=== PATIENT | female | born 1970 | race Caucasian/White ===

== ENCOUNTER 2024-09-20 12:25 | Observation (INO) ==
--- NOTE | 2024-09-20 13:20 | Emergency Department Note ---
ED Provider Note History of Present Illness Chief Complaint: Headache Stated Complaint: MIGRAINE, NECK PAIN, BACK PAIN/JAW PAIN Time Seen by Provider: 09/20/24 12:41 54-year-old female who presents to the emergency department with a female friend (who also provides history) with multiple complaints. The patient complains primarily of a headache "all over". The patient reports a history of migraines, and follows with Dr. Nixon. The patient reports that she has been using Botox injections without any significant relief. She reports issues with her back as well, and has not had any injections in a long time. Patient also reports recent treatment for sinusitis that did not provide any relief. The patient reports that she is scheduled for eye surgery next month at [facility] in [place]. The patient reports that her current headache feels different than her usual migraine headache. She denies any fever or chills, nausea or significant neck pain. She rates her overall discomfort a 10 out of 10. The friend reports that the patient could have a longer tolerate all of her symptoms, and is requesting admission so that all of her issues could be addressed. Home Medications Medication Instructions Recorded Confirmed Type calcium crb,[id number] See Rx Instructions PO BID 10/23/22 09/09/24 History [Citracal Plus Bone Density] biotin 5,000 mcg chewable tablet 5,000 mcg PO DAILY 01/15/23 09/09/24 History cyanocobalamin (vitamin B-12) 1 tab PO DAILY 01/15/23 09/09/24 History ferrous sulfate 325 mg (65 mg 325 mg PO DAILY 01/15/23 09/09/24 History iron) tablet (FeroSul) loratadine 10 mg tablet 10 mg PO DAILY PRN Allergic 01/15/23 09/09/24 History Symptoms amoxicillin 500 mg tablet 2,000 mg (4 x 500 mg) PO .COMPLEX 06/17/23 09/09/24 Rx #4 tabs rosuvastatin 5 mg tablet 5 mg PO DAILY #90 tabs 10/07/23 09/09/24 Rx sumatriptan succinate 100 mg tablet See Rx Instructions .Route 12/04/23 09/09/24 Rx .COMPLEX #9 ea topiramate 100 mg tablet 100 mg PO BID #180 tabs 12/26/23 09/09/24 Rx dicyclomine 10 mg capsule 10 mg PO QID PRN abdominal pain 02/19/24 09/09/24 Rx #120 caps montelukast 10 mg tablet 10 mg PO DAILY #90 tabs 02/26/24 09/09/24 Rx (Singulair) potassium chloride 20 mEq 20 meq PO DAILY #90 tabs 03/02/24 09/09/24 Rx tablet,extended release(part/cryst) (Klor-Con M) onabotulinumtoxinA 200 unit See Rx Instructions IM .COMPLEX #1 05/18/24 09/09/24 Rx solution for injection (Botox) ea cholecalciferol (vitamin D3) 25 25 mcg PO DAILY 06/07/24 09/09/24 History mcg (1,000 unit) tablet diclofenac sodium 1 % topical gel 2 g topical QID PRN Pain 06/07/24 09/09/24 History fluoxetine 20 mg capsule 60 mg PO DAILY 06/07/24 09/09/24 History warfarin 5 mg tablet 10 mg PO DAILY #180 tabs 06/09/24 09/09/24 Rx hydrocodone 5 mg-acetaminophen 325 1 tab PO Q8H PRN pain #30 tabs 06/24/24 09/09/24 Rx mg tablet albuterol 90 mcg/actuation aerosol 90 mcg inhalation DAILY PRN 07/13/24 09/09/24 History inhaler Shortness Of Breath Or Wheezing triamcinolone acetonide 0.1 % 1 applic topical BID PRN Skin 07/13/24 09/09/24 History topical cream Irritation warfarin 5 mg tablet 12.5 mg PO DAILY 07/13/24 09/09/24 History baclofen 10 mg tablet 10 mg PO TID PRN muscle spasm #30 07/21/24 09/09/24 Rx tabs ondansetron 8 mg disintegrating 8 mg PO DAILY PRN nausea and 08/18/24 09/09/24 Rx tablet vomiting #30 tabs Medical Marijuana 1 tab PO HS PRN Pain/sleep 08/31/24 09/09/24 History pantoprazole 40 mg tablet,delayed 40 mg PO DAILY #30 tabs 08/31/24 09/09/24 Rx release sumatriptan 20 mg/actuation nasal 20 mg intranasal Q2H PRN migraine 08/31/24 09/09/24 Rx spray headache #6 ea fluticasone propionate 50 1 spray intranasal BID #16 grams 09/09/24 09/09/24 Rx mcg/actuation nasal spray,suspension (Flonase Allergy Relief) lorazepam 1 mg tablet 1 mg PO HS #30 tabs 09/16/24 Rx Allergies Allergy/AdvReac Type Severity Reaction Status Date / Time adhesive Allergy Intermediate Redness of Verified 09/09/24 13:34 Skin Cephalosporins Allergy Intermediate Rash with Verified 09/09/24 13:34 Keflex cinnamon Allergy Unknown Unknown Verified 09/09/24 13:34 Toombs And Derivatives Allergy Unknown Unknown Verified 09/09/24 13:34 Horse/Equine Containing Allergy Unknown Unknown Verified 09/09/24 13:34 Products amitriptyline AdvReac Severe Night Verified 09/09/24 13:34 Terros duloxetine AdvReac Intermediate Gastrointestinal Verified 09/09/24 13:34 Upset gabapentin AdvReac Intermediate Gastrointestinal Verified 09/09/24 13:34 Upset Past Med/Surg History Problem List (Updated 09/20/24 @ 17:23 by Emory Sanders) Chronic pain of right knee Irritable bowel syndrome Elevated liver function tests Gastritis Encounter for general adult medical examination with abnormal findings Family history of colon cancer Radicular pain of thoracic region Chronic migraine without aura, not intractable Myofascial pain syndrome of thoracic spine (Chronic) Mechanical heart valve present (Chronic) AVR 2008 for bicuspid aortic valve Insomnia (Chronic) 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) Hypercholesteremia (Chronic) Fibromyalgia (Chronic) Chronic anticoagulation (Chronic) Migraine (Chronic) Anxiety and depression (Chronic) Medical History Dehydration chronic - "I get easily dehydrated, especially when NPO" as per patient PONV (postoperative nausea and vomiting) History of congenital aortic insufficiency congenital aortic stenosis- s/p AVR Hx of hypercholesterolemia Hx of renal calculi Myofascial pain syndrome of thoracic spine Anxiety and depression Migraine [place] [facility] Chronic anticoagulation Warfarin Dyslipidemia Insomnia History of COVID-19 (2020) no hosp; resolved Fibromyalgia Hx-TIA (transient ischemic attack) ~2005- occasional double vision since; follows w/ [facility] Personal history of gastric bypass Surgical History Mechanical heart valve present AVR 2008 for bicuspid aortic valve History of esophagogastroduodenoscopy (EGD) Hx of colonoscopy Aortic valve replaced (2008) History of lithotripsy S/P total hysterectomy bso S/P cholecystectomy S/P eye surgery S/P D&C (status post dilation and curettage) S/P hernia surgery S/P gastric bypass (2002) fiona en y S/P tubal ligation x2 S/P right heart catheterization multiple, no stents last one prior to valve replacement 2008 Family History Sister Colorectal cancer Father Diabetes Heart disease Hypertension Stroke Mother Diabetes Heart disease Hypertension Aunt Ovarian cancer Denies family history of Prostate cancer Breast cancer Social History Smoking Status: Never smoker Second Hand Exposure: No; Do You Dip or Chew Tobacco: No; Hx Alcohol Use: No Hx Substance Use: Yes Prescribed Medications: Marijuana Last Used Substance: Unknown Last Used Substance Other:: 04/28/24 Substance Use Type Other:: Medical MJ Tabs HS Preferred Language: [place] Communication Ability: Effective Visual Impairment: Limited Hearing Ability: Normal Home Based Assistant Required: No Beliefs That Will Affect Care: None marital status: Single Current Living Situation: Alone current occupational status: disabled How many Children do You have: 3 Feels Safe at Home: Yes Childhood Exposure to Second-Hand Smoke: Yes Diet: other and regular Diet Comment: low sugar caffeine: Yes during the past year weight has: remained stable Dental Care, Regularly: Yes Physical Activity Frequency: Daily Seatbelt Use: always Sunscreen Use: Yes Assistive Devices: Glasses and Other Physical Exam Vital Signs Vital Signs - 24 hr 09/20/24 12:32 09/20/24 13:33 Temperature 36.5 C Temperature Source Temporal Artery Scan Pulse Rate 51 L Respiratory Rate 18 18 Respiratory Effort / Characteristics Non-Labored Spontaneous Respiratory Depth Normal Blood Pressure 120/64 Blood Pressure Mean 82 Pulse Oximetry 100 Oxygen Delivery Method Room Air Sepsis Recent Fever Within 48 Hours No Sepsis New/Unexplained Change in Mental Status No Sepsis Action Taken by Nursing No Action Required CONSTITUTIONAL: Healthy and well nourished. Alert and oriented X 3. GCS 15. Patient appears in moderate discomfort, and is crying. HEENT: Normocephalic, atraumatic. Pupils equal, round and reactive. Patient is photophobic, precluding funduscopic exam. NECK: Full active range of motion without discomfort. No nuchal rigidity. Negative Kernig's/Brudzinski sign. RESPIRATORY: Clear to auscultation bilaterally with no wheezing, crackles, rhonchi or stridor. CARDIOVASCULAR: Regular rate and rhythm with no murmurs, rubs or gallops. GASTROINTESTINAL: Bowel sounds present in all quadrants. MUSCULOSKELETAL: Patient has generalized tenderness to palpation through the trapezius muscles. INTEGUMENTARY: No rash or other significant dermatologic conditions noted. HEMATOLOGIC: No ecchymosis or petechiae. PSYCHIATRIC: Flat affect and is crying. NEUROLOGIC: No focal neurologic deficits noted. Course Course Patient history and physical exam were performed. Nurses notes were reviewed. I did explain to the patient and friend that I would be happy to provide pain management, and would further need to discuss findings with the hospitalist service once additional lab work and imaging was completed. They again voiced frustration for not receiving any answers from their outside providers. IV access was established, and labs were ordered and drawn. The patient was hydrated with normal saline 500 cc bolus, and administered IV Compazine, Benadryl and Decadron. Review of labs shows a normal CBC. She does have an INR of 3.4, consistent with Coumadin use for her aortic valve replacement. CMP shows elevated LFTs, having had transaminitis in the past. Anaplasma and Babesia peripheral smears were negative, with DNA testing pending. Lyme screen was also negative. CT imaging was completed and did not show any concerning findings. While awaiting the remainder of her labs to be completed, the patient did request something else for pain, and was administered IV Ativan, Toradol and Tylenol. In approximately 1 hour, I did go back to reevaluate the patient, and she was comfortably sleeping. Once labs were completed and the patient was reassessed, she did report significant improvement of her headache to a 2 or 3 out of 10. The patient still requested a hospitalist consultation for her ongoing issues. At this point, the case was discussed with our Mold Capper Helper, as well as the [facility] hospitalist service, who came to the emergency department for further evaluation, and agrees with admission. Please see their dictation for further treatment and final disposition. Administered Medications Discontinued Medications Dexamethasone Sodium Phosphate (DexamethasonePf 10 Mg/Ml Vial) 10 mg IV NOW ONE Stop: 09/20/24 13:05 Last Admin: 09/20/24 13:24 Dose: 10 mg Documented By: CANDY Diphenhydramine HCl (Diphenhydramine 50 Mg/Ml Vial) 25 mg IV NOW STA Stop: 09/20/24 13:05 Last Admin: 09/20/24 13:24 Dose: 25 mg Documented By: CANDY Sodium Chloride (Nss) 500 mls @ 999 mls/hr IV .Q31M ONE Stop: 09/20/24 13:37 Last Admin: 09/20/24 13:24 Dose: 999 mls/hr Documented By: CANDY Acetaminophen (Ofirmev) 1,000 mg in 100 mls @ 400 mls/hr IV NOW STA Stop: 09/20/24 14:19 Last Admin: 09/20/24 14:21 Dose: 400 mls/hr Documented By: CANDY Ketorolac Tromethamine (Ketorolac Tromethamine 15 Mg/Ml Vial) 15 mg IV NOW STA Stop: 09/20/24 14:06 Last Admin: 09/20/24 14:21 Dose: 15 mg Documented By: CANDY Lorazepam (Lorazepam 2 Mg/1 Ml Vial) 0.5 mg IV NOW STA Stop: 09/20/24 14:06 Last Admin: 09/20/24 14:21 Dose: 0.5 mg Documented By: CANDY Prochlorperazine (Prochlorperazine 5 Mg/Ml 2 Ml Vial) 10 mg IV NOW STA Stop: 09/20/24 13:05 Last Admin: 09/20/24 13:24 Dose: 10 mg Documented By: CANDY Medical Decision Making Medical Records Attestation: I reviewed the patient's medical records. Home Medications was personally reviewed by me Laboratory Data Attestation: I reviewed the patient's lab results. 09/20/24 13:20 09/20/24 14:45 Lab Results 09/20/24 09/20/24 09/20/24 Range/Units 13:20 14:45 14:55 WBC 5.11 (4.8-10.8) K/ul RBC 4.81 (4.20-5.40) M/uL Hgb 14.8 (12.0-16.0) g/dl Hct 45.8 (37.0-47.0) % MCV 95.2 (80.0-100.0) fL MCH 30.8 (25.0-34.0) pg MCHC 32.3 (32.0-36.0) g/dL RDW Std Deviation 47.1 H (36.4-46.3) fL RDW Coeff of Travis 13.3 (11.5-14.5) % Plt Count 211 (130-400) K/uL MPV 11.7 (9.4-12.4) fL Immature Gran % (Auto) 0.2 % Neut % (Auto) 51.7 % Lymph % (Auto) 36.6 % Shackelford % (Auto) 6.8 % Eos % (Auto) 3.7 % Baso % (Auto) 1.0 % Neut # (Auto) 2.64 (1.40-6.50) K/uL Lymph # (Auto) 1.87 (1.20-3.40) K/uL Shackelford # (Auto) 0.35 (0.11-0.59) K/uL Eos # (Auto) 0.19 (0.00-0.50) K/uL Baso # (Auto) 0.05 (0.00-0.20) K/uL Immature Gran # (Auto) 0.01 (0.01-0.20) K/uL ESR 24 (0-30) mm/hr PT Cancelled 33.4 H INR Cancelled 3.4 H APTT Cancelled 45 H PTT Ratio Cancelled 1.7 Sodium Cancelled 140 Potassium Cancelled 4.2 Chloride Cancelled 112 H Carbon Dioxide Cancelled 23 Anion Gap Cancelled 5 BUN Cancelled 21 Creatinine Cancelled 0.87 Est Cr Clr Drug Dosing Cancelled 63.1 eGFR Cancelled 78.63 BUN/Creatinine Ratio Cancelled 24.1 H Glucose Cancelled 85 Calcium Cancelled 8.3 L Total Bilirubin Cancelled 0.3 AST Cancelled 72 H ALT Cancelled 78 H Alkaline Phosphatase Cancelled 57 Total Protein Cancelled 6.1 Albumin Cancelled 3.5 Globulin Cancelled 2.6 Albumin/Globulin Ratio Cancelled 1.3 Anaplasma Smear See Comment Babesia Smear See Comment Lyme Disease Screen Negative (Negative) Imaging Data Attestation: I personally reviewed and interpreted this imaging study as follows: My Impression: My interpretation of a noncontrast CT scan of the head does not show evidence for intracranial bleed, midline shift, mass effect or hydrocephalus. Radiologist report was also reviewed with concurrence. Radiologist's Impression: Head CT 09/20/24 13:05 CT head/brain wo con CLINICAL HISTORY: Headache. TECHNIQUE: Multiple axial CT images of the head were obtained without contrast. A dose lowering technique was utilized adhering to the principles of ALARA. CT DOSE: 547.75 mGy.cm COMPARISON: None FINDINGS: No intracranial hemorrhage seen. No mass effect, midline shift, or hydrocephalus. No skull fracture seen. Visualized paranasal sinuses and mastoid air cells are clear. IMPRESSION: No acute findings. ACT 112: Negative or not required by law. The above report was generated using voice recognition software. It may contain grammatical, syntax or spelling errors. Electronically signed by: Mitchell Horner M.D. 09/20/2024 1:41 PM MDM Narrative Patient presents with multiple complaints today, with primary complaint of a migraine headache. Although the patient reports that her symptoms are different than her usual migraine, it is noted that she is photophobic. Given that her headache is different, I did elect to get CT imaging which did not show any concerning findings. Lab work was also reviewed as well without any concerns. Patient has multiple other pain related issues, and follows with neurology, her PCP and pain management. The patient appears to be very frustrated because of her symptoms that are affecting her activities of daily living. I did reach out to the [facility]ist service, who also did come to evaluate the patient. Impression Migraine, Myofascial pain syndrome of thoracic spine, Anxiety and depression Discharge Plan Visit Data Chief Complaint: Headache Stated Complaint: MIGRAINE, NECK PAIN, BACK PAIN/JAW PAIN ED Provider: [facility] ED Midlevel Provider: Emory Sanders Discharge Problem: Migraine, Myofascial pain syndrome of thoracic spine, Anxiety and depression Patient Disposition: Admitted As Inpatient Condition: Fair Forms Stand Alone Forms: My [facility] Prescriptions Prescriptions: No Action cholecalciferol (vitamin D3) 25 mcg (1,000 unit) tablet 25 mcg PO DAILY diclofenac sodium 1 % gel 2 g topical QID PRN (Reason: Pain) fluoxetine 20 mg capsule 60 mg PO DAILY rosuvastatin 5 mg tablet 5 mg PO DAILY Qty: 90 3RF sumatriptan succinate 100 mg tablet See Rx Instructions .ROUTE .COMPLEX Qty: 9 10RF Dose Instruction: TAKE 1 TABLET BY MOUTH DAILY NEEDED FOR MIGRAINE HEADACHE Rx Instructions: TAKE 1 TABLET BY MOUTH DAILY NEEDED FOR MIGRAINE HEADACHE dicyclomine 10 mg capsule 10 mg PO QID PRN (Reason: abdominal pain) Qty: 120 0RF montelukast [Singulair] 10 mg tablet 10 mg PO DAILY Qty: 90 3RF potassium chloride [Klor-Con M20] 20 mEq tablet,ER particles/crystals 20 meq PO DAILY Qty: 90 3RF Botox 200 unit recon soln See Rx Instructions IM .COMPLEX Qty: 1 3RF Rx Instructions: 155 UNITS IM IN THE FACE AND NECK MUSCLES EVERY 12 WEEKS PER MIGRAINE PROTOCOL warfarin 5 mg tablet 10 mg PO DAILY Qty: 180 2RF Protocol: Dose Management Condition: Friday (Week One) Dose/Route: 10 mg Instruction: 2 x 5 mg tablets Condition: Friday Dose/Route: 15 mg Instruction: 3 x 5 mg tablets Condition: Friday Dose/Route: 10 mg Instruction: 2 x 5 mg tablets Condition: Friday Dose/Route: 12.5 mg Instruction: 2.5 x 5 mg tablets Condition: Dose/Route: 10 mg Instruction: 2 x 5 mg tablets Condition: Friday Dose/Route: 12.5 mg Instruction: 2.5 x 5 mg tablets Condition: Friday Dose/Route: 10 mg Instruction: 2 x 5 mg tablets Condition: Friday (Week Two) Dose/Route: 10 mg Instruction: 2 x 5 mg tablets Condition: Friday Dose/Route: 12.5 mg Instruction: 2.5 x 5 mg tablets Condition: Friday Dose/Route: 10 mg Instruction: 2 x 5 mg tablets Condition: Friday Dose/Route: 12.5 mg Instruction: 2.5 x 5 mg tablets Condition: Dose/Route: 10 mg Instruction: 2 x 5 mg tablets Condition: Friday Dose/Route: 12.5 mg Instruction: 2.5 x 5 mg tablets Condition: Friday Dose/Route: 10 mg Instruction: 2 x 5 mg tablets Protocol Text: Adjustment Start Date: Friday09/20/24 INR Value: 3.4 INR Date: 09/20/24 Rx Instructions: S-T-TH-Sat hydrocodone-acetaminophen 5-325 mg tablet 1 tab PO Q8H PRN (Reason: pain) Qty: 30 0RF baclofen 10 mg tablet 10 mg PO TID PRN (Reason: muscle spasm) Qty: 30 0RF ondansetron 8 mg tablet,disintegrating 8 mg PO DAILY PRN (Reason: nausea and vomiting) Qty: 30 0RF lorazepam 1 mg tablet 1 mg PO HS Qty: 30 5RF biotin 5,000 mcg tablet,chewable 5,000 mcg PO DAILY ferrous sulfate [FeroSul] 325 mg (65 mg iron) tablet 325 mg PO DAILY calcium crb,[id number] See Rx Instructions PO BID Rx Instructions: unknown dosage orally twice a day; loratadine 10 mg tablet 10 mg PO DAILY PRN (Reason: Allergic Symptoms) cyanocobalamin (vitamin B-12) 1 tab PO DAILY Rx Instructions: OTC Medical Marijuana 1 tab PO HS PRN (Reason: Pain/sleep ) topiramate 100 mg tablet 100 mg PO BID Qty: 180 3RF amoxicillin 500 mg tablet 2,000 mg PO .COMPLEX Qty: 4 1RF Rx Instructions: 2,000 mg orally 1 hour prior to dental appointment; pantoprazole 40 mg tablet,delayed release (DR/EC) 40 mg PO DAILY Qty: 30 2RF sumatriptan 20 mg/actuation spray,non-aerosol 20 mg intranasal Q2H PRN (Reason: migraine headache) Qty: 6 1RF Rx Instructions: administer into one nostril as a single dose; if 2nd dose needed,administer into other nostril after at least 2 hrs, NTE 2 doses (40 mg) per episode fluticasone propionate [Flonase Allergy Relief] 50 mcg/actuation spray,suspension 1 spray intranasal BID Qty: 16 0RF warfarin 5 mg Tablet 12.5 mg PO DAILY Protocol: Dose Management Condition: Friday (Week One) Dose/Route: 10 mg Instruction: 2 x 5 mg tablets Condition: Friday Dose/Route: 15 mg Instruction: 3 x 5 mg tablets Condition: Friday Dose/Route: 10 mg Instruction: 2 x 5 mg tablets Condition: Friday Dose/Route: 12.5 mg Instruction: 2.5 x 5 mg tablets Condition: Dose/Route: 10 mg Instruction: 2 x 5 mg tablets Condition: Friday Dose/Route: 12.5 mg Instruction: 2.5 x 5 mg tablets Condition: Friday Dose/Route: 10 mg Instruction: 2 x 5 mg tablets Condition: Friday (Week Two) Dose/Route: 10 mg Instruction: 2 x 5 mg tablets Condition: Friday Dose/Route: 12.5 mg Instruction: 2.5 x 5 mg tablets Condition: Friday Dose/Route: 10 mg Instruction: 2 x 5 mg tablets Condition: Friday Dose/Route: 12.5 mg Instruction: 2.5 x 5 mg tablets Condition: Dose/Route: 10 mg Instruction: 2 x 5 mg tablets Condition: Friday Dose/Route: 12.5 mg Instruction: 2.5 x 5 mg tablets Condition: Friday Dose/Route: 10 mg Instruction: 2 x 5 mg tablets Protocol Text: Adjustment Start Date: Friday09/20/24 INR Value: 3.4 INR Date: 09/20/24 Rx Instructions: M-W-F albuterol 90 mcg/actuation Aerosol 90 mcg INHALATION DAILY PRN (Reason: Shortness Of Breath Or Wheezing) triamcinolone acetonide 0.1 % cream 1 applic TOP BID PRN (Reason: Skin Irritation) Rx Instructions: Apply to left leg twice daily x 2 weeks. Then stop x 2 weeks. Repeat course as directed. Referrals Referrals: Stephan Alva MD [Primary Care Provider] - ED DC CONDITION Conditon at Discharge Condition at Discharge: Good
[2024-09-20] MEDS: dexAMETHasone**PF** 10 MG/ML VIAL IV ONE (13:24)
[2024-09-20] MEDS: PROCHLORPERAZINE 5 MG/ML 2 ML VIAL IV STA (13:24)
[2024-09-20] MEDS: diphenhydrAMINE 50 MG/ML VIAL IV STA (13:24)
[2024-09-20] MEDS: SODIUM CHLORIDE 0.9% 500 ML IV ONE (13:24)
--- NOTE | 2024-09-20 13:43 | CT Scan Report ---
CT head/brain wo con CLINICAL HISTORY: Headache. TECHNIQUE: Multiple axial CT images of the head were obtained without contrast. A dose lowering tech nique was utilized adhering to the principles of ALARA. CT DOSE: 547.75 mGy.cm COMPARISON: None FINDINGS: No intracranial hemorrhage seen. No mass effect, midline shift, or hydrocephalus. No skull fracture seen. Visualized paranasal sinuses and mastoid air cells are clear. IMPRESSION: No acute findings. ACT 112: Negative or not required by law. The above report was generated using voice recognition software. It may contain grammatical, syntax o r spelling errors. Electronically signed by: Mitchell Horner M.D. 09/20/2024 1:41 PM
[2024-09-20 14:03] LABS: Hematocrit (blood only) 45.8 % (37.0-47.0); Hemoglobin 14.8 g/dl (12.0-16.0); Immature Granulocytes # (auto) 0.01 K/uL (0.01-0.20); Immature Granulocytes % (auto) 0.2 %; Mean Corpuscular Hemoglobin 30.8 pg (25.0-34.0); Mean Corpuscular Volume 95.2 fL (80.0-100.0); Platelet Count 211 K/uL (130-400); RDW Standard Deviation 47.1 fL (36.4-46.3); Red Blood Count 4.81 M/uL (4.20-5.40); White Blood Count 5.11 K/ul (4.8-10.8)
[2024-09-20] MEDS: KETOROLAC TROMETHAMINE 15 MG/ML VIAL IV STA (14:21)
[2024-09-20] MEDS: ACETAMINOPHEN 1,000 MG/100 ML VIAL IV STA (14:21)
[2024-09-20 15:35] LABS: Alanine Aminotransferase 78.0 U/L (7-52); Albumin Globulin Ratio 1.3 (0.9-2); Alkaline Phosphatase 57.0 U/L (34-104); Anion Gap 5.0 (3-11); Bilirubin,Total 0.3 mg/dl (0.2-1.0); Blood Urea Nitrogen 21.0 mg/dl (6-23); Calcium 8.3 mg/dl (8.6-10.3); Carbon Dioxide 23.0 mmol/L (21-32); Chloride 112.0 mmol/L (98-107); Creatinine Clr Calc Pharmacy 63.1 ml/min; Globulin 2.6 gm/dl (2.5-4.0); Glucose 85.0 mg/dl (70-99(Fasting)); Potassium 4.2 mmol/L (3.5-5.1); Sodium 140.0 mmol/L (136-145); Total Protein 6.1 gm/dl (6.0-8.3)
[2024-09-20 16:05] LABS: INR 3.4 (0.9-1.1); Partial Thromboplastin Time 45 Seconds (21-31); Prothrombin Time 33.4 Seconds (9.0-12.0)
--- NOTE | 2024-09-20 16:33 | History & Physical Report ---
Date of Service September 20, 2024 Assessment & Plan (1) Irritable bowel syndrome: (2) Gastritis: Gómez Yates is a 54 y/o F with a PMH of hyperlipidemia, obesity s/p gastric bypass, AVR (on Coumadin), migraine, fibromyalgia, insomnia, anxiety and depression presented today with intractable headache for 10 days. She is being admitted for management for management of Migraine. #Intractable headache -Likely combination of both Migraine and Tension headache -Intractable pain for 10 day associated with photophobia and phonophobia -Ketorolac PRN -Magnesium Oxide IV BID -Depakote 5mg PO BID -Patient taking Lorazepam HS at home. Will switch to Valium 2mg HS while at hospital for its better muscle relaxant activity -IV fluids ordered #Chronic Conditions Hyperlipidemia: Continue Rosuvastatin Anxiety and Depression: Continue Fluoxetine AVR: Warfarin 12 mg on , and ; Warfarin 10mg on other days DVT prophylaxis: Patient is on Warfarin Code: FUll Dispo: Med/Surg History of Present Illness Chief Complaint: Headache Primary Care Provider: Stephan Alva MD Trudy is a 54 y/o F with a PMH of hyperlipidemia, obesity s/p gastric bypass, AVR (on Coumadin), migraines, fibromyalgia, insomnia, anxiety and depression who presents to the emergency department with a female friend (who also provides history) with multiple complaints. The patient complains primarily of a head ache "all over". The patient reports a history of migraines, and follows with Dr. Nixon. She is taking sumatriptan as needed for migraine but having severe pain since 10 days. Associated with photophobia, phonophobia. Denies nausea, vomiting. Pain rating 10/10 at home . Received migraine cocktail in the ER . Pain better now rating 4/10 The patient reports that she has been using Botox injections for fibromyalgia without any significant relief. She reports issues with her back as well, and has not had any injections in a long time. Patient also reports recent treatment for sinusitis that did not provide any relief. Has severe diplopia which has limited her activities. The patient reports that she is scheduled for eye surgery for diplopia next month at [facility] in [place]. The. She denies any fever or chills, nausea or significant neck pain. She rates her overall discomfort a 10 out of 10. Patient also reports she had lapse in acre since she moved from [place] to [place] as she has been unable to see a neurologist for trigger point injections in her shoulder. She has been having chronic pain in her shoulders since her open cardiac surgery for cardiac tamponade/TAVR. No recent travel or exposure with sick contacts Er Course: Compazine, Benadryl and Decadron in the ER Allergies Allergy/AdvReac Type Severity Reaction Status Date / Time adhesive Allergy Intermediate Redness of Verified 09/09/24 13:34 Skin Cephalosporins Allergy Intermediate Rash with Verified 09/09/24 13:34 Keflex cinnamon Allergy Unknown Unknown Verified 09/09/24 13:34 Baylis And Derivatives Allergy Unknown Unknown Verified 09/09/24 13:34 Horse/Equine Containing Allergy Unknown Unknown Verified 09/09/24 13:34 Products amitriptyline AdvReac Severe Night Verified 09/09/24 13:34 Terros duloxetine AdvReac Intermediate Gastrointestinal Verified 09/09/24 13:34 Upset gabapentin AdvReac Intermediate Gastrointestinal Verified 09/09/24 13:34 Upset Home Medications Medication Instructions Recorded Confirmed Type calcium crb,[id number] See Rx Instructions PO BID 10/23/22 09/09/24 History [Citracal Plus Bone Density] biotin 5,000 mcg chewable tablet 5,000 mcg PO DAILY 01/15/23 09/09/24 History cyanocobalamin (vitamin B-12) 1 tab PO DAILY 01/15/23 09/09/24 History ferrous sulfate 325 mg (65 mg 325 mg PO DAILY 01/15/23 09/09/24 History iron) tablet (FeroSul) loratadine 10 mg tablet 10 mg PO DAILY PRN Allergic 01/15/23 09/09/24 History Symptoms amoxicillin 500 mg tablet 2,000 mg (4 x 500 mg) PO .COMPLEX 06/17/23 09/09/24 Rx #4 tabs rosuvastatin 5 mg tablet 5 mg PO DAILY #90 tabs 10/07/23 09/09/24 Rx sumatriptan succinate 100 mg tablet See Rx Instructions .Route 12/04/23 09/09/24 Rx .COMPLEX #9 ea topiramate 100 mg tablet 100 mg PO BID #180 tabs 12/26/23 09/09/24 Rx dicyclomine 10 mg capsule 10 mg PO QID PRN abdominal pain 02/19/24 09/09/24 Rx #120 caps montelukast 10 mg tablet 10 mg PO DAILY #90 tabs 02/26/24 09/09/24 Rx (Singulair) potassium chloride 20 mEq 20 meq PO DAILY #90 tabs 03/02/24 09/09/24 Rx tablet,extended release(part/cryst) (Klor-Con M) onabotulinumtoxinA 200 unit See Rx Instructions IM .COMPLEX #1 05/18/24 09/09/24 Rx solution for injection (Botox) ea cholecalciferol (vitamin D3) 25 25 mcg PO DAILY 06/07/24 09/09/24 History mcg (1,000 unit) tablet diclofenac sodium 1 % topical gel 2 g topical QID PRN Pain 06/07/24 09/09/24 History fluoxetine 20 mg capsule 60 mg PO DAILY 06/07/24 09/09/24 History warfarin 5 mg tablet 10 mg PO DAILY #180 tabs 06/09/24 09/09/24 Rx hydrocodone 5 mg-acetaminophen 325 1 tab PO Q8H PRN pain #30 tabs 06/24/24 09/09/24 Rx mg tablet albuterol 90 mcg/actuation aerosol 90 mcg inhalation DAILY PRN 07/13/24 09/09/24 History inhaler Shortness Of Breath Or Wheezing triamcinolone acetonide 0.1 % 1 applic topical BID PRN Skin 07/13/24 09/09/24 History topical cream Irritation warfarin 5 mg tablet 12.5 mg PO DAILY 07/13/24 09/09/24 History baclofen 10 mg tablet 10 mg PO TID PRN muscle spasm #30 07/21/24 09/09/24 Rx tabs ondansetron 8 mg disintegrating 8 mg PO DAILY PRN nausea and 08/18/24 09/09/24 Rx tablet vomiting #30 tabs Medical Marijuana 1 tab PO HS PRN Pain/sleep 08/31/24 09/09/24 History pantoprazole 40 mg tablet,delayed 40 mg PO DAILY #30 tabs 08/31/24 09/09/24 Rx release sumatriptan 20 mg/actuation nasal 20 mg intranasal Q2H PRN migraine 08/31/24 09/09/24 Rx spray headache #6 ea fluticasone propionate 50 1 spray intranasal BID #16 grams 09/09/24 09/09/24 Rx mcg/actuation nasal spray,suspension (Flonase Allergy Relief) lorazepam 1 mg tablet 1 mg PO HS #30 tabs 09/16/24 Rx Past Med/Surg History Problem List (Updated 09/20/24 @ 17:23 by Emory Sanders) Chronic pain of right knee Irritable bowel syndrome Elevated liver function tests Gastritis Encounter for general adult medical examination with abnormal findings Family history of colon cancer Radicular pain of thoracic region Chronic migraine without aura, not intractable Myofascial pain syndrome of thoracic spine (Chronic) Mechanical heart valve present (Chronic) AVR 2008 for bicuspid aortic valve Insomnia (Chronic) 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) Hypercholesteremia (Chronic) Fibromyalgia (Chronic) Chronic anticoagulation (Chronic) Migraine (Chronic) Anxiety and depression (Chronic) Medical History Dehydration chronic - "I get easily dehydrated, especially when NPO" as per patient PONV (postoperative nausea and vomiting) History of congenital aortic insufficiency congenital aortic stenosis- s/p AVR Hx of hypercholesterolemia Hx of renal calculi Myofascial pain syndrome of thoracic spine Anxiety and depression Migraine botox injections - [facility] [place] Head[facility] Chronic anticoagulation Warfarin Dyslipidemia Insomnia History of COVID-19 (2020) no hosp; resolved Fibromyalgia Hx-TIA (transient ischemic attack) ~2005- occasional double vision since; follows w/ [facility] Personal history of gastric bypass Surgical History Mechanical heart valve present AVR 2008 for bicuspid aortic valve History of esophagogastroduodenoscopy (EGD) Hx of colonoscopy Aortic valve replaced (2008) History of lithotripsy S/P total hysterectomy bso S/P cholecystectomy S/P eye surgery S/P D&C (status post dilation and curettage) S/P hernia surgery S/P gastric bypass (2002) fiona en y S/P tubal ligation x2 S/P right heart catheterization multiple, no stents last one prior to valve replacement 2008 Family History Sister Colorectal cancer Father Diabetes Heart disease Hypertension Stroke Mother Diabetes Heart disease Hypertension Aunt Ovarian cancer Denies family history of Prostate cancer Breast cancer Social History (Reviewed 08/11/25 @ 13:17 by Emory Mcdonald Smoking Status: Never smoker Second Hand Exposure: No; Do You Dip or Chew Tobacco: No; Hx Alcohol Use: No Hx Substance Use: Yes Prescribed Medications: Marijuana Last Used Substance: Unknown Last Used Substance Other:: 04/28/24 Substance Use Type Other:: Medical MJ Tabs HS Preferred Language: Croatian Communication Ability: Effective Visual Impairment: Limited Hearing Ability: Normal Cleaner And Trimmer Required: No Beliefs That Will Affect Care: None marital status: Single Current Living Situation: Alone current occupational status: disabled How many Children do You have: 3 Feels Safe at Home: Yes Childhood Exposure to Second-Hand Smoke: Yes Diet: other and regular Diet Comment: low sugar caffeine: Yes during the past year weight has: remained stable Dental Care, Regularly: Yes Physical Activity Frequency: Daily Seatbelt Use: always Sunscreen Use: Yes Assistive Devices: Glasses and Other Review of Systems Review of Systems: per HPI Physical Exam Physical Exam: Constitutional: Well appearing, No acute distress, PILCCOD: Negative HEENT: Atraumatic, Normocephalic, No conjunctival injection, Suboccipital tenderness + CVS: S1 S2 no murmur, Regular Rhythm, no LE edema Respiratory: BL equal air entry with NVBS. No rhonchi, wheezes, or crackles. No increased work of breathing GI: Soft, Nondistended, Nontender, Normal Bowel sounds + MSK: No gross deformities noted Skin: Warm, Dry, No rashes Neuro: Alert, Oriented to TPP, No Focal deficit Psych: Mood and Affect congruent, Cooperative on exam Results & Data Results & Data Vital Signs (Past 12 Hours) Vital Signs Temp Pulse Resp BP Pulse Ox O2 Del Method 09/20/24 13:33 18 09/20/24 12:32 36.5 C 51 L 18 120/64 100 Room Air Supervising Physician Co-Signing Physician Notes I personally examined the patient and verified all bryson points of history and exam, discussed case, and agree with decision making with Dr Miller feeling bad. Headaches. Photophobia and phonophobia. Ongoing for months. Tension headaches, fibromyalgia, and slowly worsening diplopiafor strabismus surgery in October. Vitals noted, in general she is awake and alert pleasant but laying still and prefers the room to be dark speaking quietly. HEENT normocephalic atraumatic mucous membranes moist, right greater than left suboccipitals high tone, tender, decreased range of motioninhibitory pressure with some decent improvement. Patient tolerated well. Breathing unlabored no accessory muscle use good effort. Skin without rashes pallor or icterus. Neuro without focal deficits. Intractable headachesseems to be combination of tension and migraineit is unclear if tension headache compounded by fibromyalgia is the exacerbating factor or diplopia causing migraine leading to the tension headacheunfortunately there is no actual be able to do about the diplopia immediately but she is scheduled for surgery in about a month. As far as the tensionOMT as above, Valium in place of her lorazepam, 4 g of mag IV; as far as migraine, 4 g of mag IV, Depakote 500 mg, IV fluids. Otherwise as above.
[2024-09-20] MEDS ORDERED: ALUMINUM/MAGNESIUM SUSP 30 ML UDC PO PRN (19:13)
[2024-09-20] MEDS ORDERED: ALBUTEROL HFA 8 GM INHALER INH PRN (19:20)
[2024-09-20] MEDS ORDERED: MEDICAL MARIJUANA PO PRN (19:21)
[2024-09-20 19:36] VITALS: RESP 16
[2024-09-20] MEDS: MAGNESIUM SULFATE / D5W 1 GM/100 ML BAG IV SCH ×2 (19:40→22:49)
[2024-09-20] MEDS: VALPROATE SOD 500 MG in DEXTROSE 5% 50 ML IV ONE (19:56)
[2024-09-20] MEDS: KETOROLAC TROMETHAMINE 15 MG/ML VIAL IV PRN (22:54)
[2024-09-20] MEDS: POLYETHYLENE (MIRALAX) 17 GM PACK PO PRN (22:54)
[2024-09-20] MEDS: MELATONIN 3 MG TAB PO PRN (22:54)
[2024-09-20] MEDS: DICLOFENAC SOD 1% GEL 100 GM TUBE EXT SCH (22:56)
[2024-09-20] MEDS: FLUTICASONE PROPIONATE NA SPR 16 GM BTL SCH (22:56)
[2024-09-20] MEDS: DIVALPROEX EXTENDED RELEASE 250 MG TABCR PO SCH (22:57)
[2024-09-20] MEDS: SODIUM CHLORIDE 0.9% 1,000 ML IV SCH (23:04)
[2024-09-21] MEDS: WARFARIN SOD 2.5 MG TAB PO ONE (00:57)
[2024-09-21] MEDS: WARFARIN SOD 10 MG TAB PO ONE ×2 (00:57→17:26)
[2024-09-21] MEDS: LORazepam 1 MG TAB PO STA (01:34)
[2024-09-21 06:51] LABS: Hematocrit (blood only) 36.0 % (37.0-47.0); Hemoglobin 11.8 g/dl (12.0-16.0); Immature Granulocytes # (auto) 0.03 K/uL (0.01-0.20); Immature Granulocytes % (auto) 0.4 %; Mean Corpuscular Hemoglobin 31.0 pg (25.0-34.0); Mean Corpuscular Volume 94.5 fL (80.0-100.0); Platelet Count 181 K/uL (130-400); RDW Standard Deviation 44.8 fL (36.4-46.3); Red Blood Count 3.81 M/uL (4.20-5.40); White Blood Count 7.87 K/ul (4.8-10.8)
[2024-09-21 07:07] LABS: Alanine Aminotransferase 67.0 U/L (7-52); Albumin Globulin Ratio 1.7 (0.9-2); Alkaline Phosphatase 53.0 U/L (34-104); Anion Gap 6.0 (3-11); Bilirubin,Total 0.3 mg/dl (0.2-1.0); Blood Urea Nitrogen 22.0 mg/dl (6-23); Calcium 8.1 mg/dl (8.6-10.3); Carbon Dioxide 18.0 mmol/L (21-32); Chloride 114.0 mmol/L (98-107); Creatinine Clr Calc Pharmacy 72.2 ml/min; Globulin 2.1 gm/dl (2.5-4.0); Glucose 101.0 mg/dl (70-99(Fasting)); Potassium 4.2 mmol/L (3.5-5.1); Sodium 138.0 mmol/L (136-145); Total Protein 5.6 gm/dl (6.0-8.3)
[2024-09-21] MEDS: MONTELUKAST SODIUM 10 MG TABLET PO SCH (09:49)
[2024-09-21] MEDS: FERROUS SULFATE 325 MG TAB PO SCH (09:49)
[2024-09-21] MEDS: ROSUVASTATIN CALCIUM 5 MG TAB PO SCH (09:49)
[2024-09-21] MEDS ORDERED: DEXAMETHASONE SOD INJ 4 MG/ML VIAL IV STA (13:19)
[2024-09-21] MEDS: dexAMETHasone 6 MG in SYRINGE 0 ML IV STA (14:06)
[2024-09-21] MEDS: diphenhydrAMINE 50 MG/ML VIAL IV STA (14:07)
[2024-09-21] MEDS: METOCLOPRAMIDE HCL INJ 5 MG/ML 2 ML VIAL IV STA (14:07)
[2024-09-21] MEDS ORDERED: Nursing to Pharmacy Communication SCH (17:00)
--- NOTE | 2024-09-21 17:01 | Hospitalist Progress Note ---
Date of Service September 21, 2024 Assessment & Plan (1) Irritable bowel syndrome: (2) Gastritis: Gómez Yates is a 54 y/o F with a PMH of hyperlipidemia, obesity s/p gastric bypass, AVR (on Coumadin), migraine, fibromyalgia, insomnia, anxiety and depression presented with intractable headache for [address] without acute findings. She is being admitted for management for management of Migraine. #Intractable headache -Likely combination of both Migraine and Tension headache with photophobia and phonophobia avoiding further NSAIDs with hx of gastric bypass and on coumadin Has received 4 gram IV mag Continue Depakote 250mg PO BID Migraine cocktail today with reglan 10mg, benadryl 25 mg and decadron 6mg -Patient taking Lorazepam HS at home. Will switch to Valium 2mg HS while at hospital for its better muscle relaxant activity If not improving, consider patching to help with double vision until she is able to have eye surgery AVR: Warfarin 12 mg on M, W and ; Warfarin 10mg on other days Goal range 3.5-4.5 INR 3.4 yesterday, discussed with her coumadin clinic, given just borderline low and given steroids will continue on her normal dose AM INR Hyperlipidemia: Continue Rosuvastatin Anxiety and Depression: Continue Fluoxetine DVT prophylaxis: Warfarin Dispo: continued inpatient stay for pain control Admission and Anticipated Discharge Date Admission Date: September 20, 2024 Supervising Physician Co-Signing Physician Notes MIKY Supervision Note: I did not personally see or examine the patient today, but I verified all bryson points of MIKY Mitchell's assessment and plan with the following exceptions/additions: Reviewed notes from [facility] with Dr. Nixon-it seems the patient is also supposed to be on topamax-will find out if still taking 200mg po hs and add back on for migraine prevention. Subjective Patient seen resting in bed, did feel like the medicine she got yesterday helped and she was able to sleep and then woke up this morning and the pain had returned. Comes on gradually - headache today feels more similar to her other migraines Review of Systems Review of Systems: All systems reviewed & are unremarkable except as noted in Subjective Physical Exam Physical Exam: General: NAD, VS as above Resp: normal respiratory effort, lungs clear to auscultation CV: RRR, no murmur, HEENT: MSK tenderness to back of her neck with palpation Extremities: Moves all extremities, no edema Neuro: A&O x3, Results & Data Results & Data Vital Signs (Past 12 Hours) Vital Signs Temp Pulse Resp BP BP Pulse Ox O2 Del Method 09/21/24 15:38 95/58 L 09/21/24 14:55 99.0 F 62 16 85/52 L 99 Room Air 09/21/24 07:25 97.7 F 52 L 16 100/60 96 Room Air Laboratory Results CBC, chemistry and LFTs reviewed PG Care Time/CCT Total # of Minutes Spent Total Time Spent with Patient: Total time spent is greater than 50% in coordination of care (as documented) at patient's floor/unit and/or counseling patient: Coding Level of Care Code 00956 SUB INP/OBS CARE 3/50MIN Diagnoses Irritable bowel syndrome K58.9 Gastritis K29.70
[2024-09-22] MEDS: METOCLOPRAMIDE HCL INJ 5 MG/ML 2 ML VIAL IV STA (00:30)
[2024-09-22] MEDS: diphenhydrAMINE 50 MG/ML VIAL IV STA (00:31)
[2024-09-22 07:56] VITALS: BP 135/77; PULSE 47; TEMP 98.8; O2SAT 98
[2024-09-22 08:15] LABS: Prothrombin Time 60.6 Seconds (9.0-12.0)
[2024-09-22 08:18] LABS: INR 6.6 (0.9-1.1)
[2024-09-22] MEDS ORDERED: BACLOFEN 10 MG TAB PO PRN (09:35)
[2024-09-22] MEDS: TOPIRAMATE 100 MG TAB PO SCH (10:37)
[2024-09-22] MEDS: GADOBUTROL 65ML VIAL IV ONE (12:46)
--- NOTE | 2024-09-22 13:05 | Magnetic Resonance Report ---
MR brain wo/w con CLINICAL HISTORY: intractable migraine COMPARISON STUDY: 09/20/2024 CT FINDINGS: There is mild motion artifact. No restricted diffusion seen to suggest acute infarction. No mass effect, midline shift, or hydrocephalus. There is a tiny focus of signal drop on the gradient e cho sequence medial right frontal lobe, likely tiny calcification. There is a tiny area of encephalom alacia and gliosis in the right periventricular white matter, likely old infarction. No other signifi cant signal abnormality seen in the brain. No abnormal enhancement is seen in the brain. IMPRESSION: 1. No evidence of acute infarction or abnormal enhancement. 2. Otherwise as described. ACT 112: Negative or not required by law. Electronically signed by: Mitchell Horner M.D. 09/22/2024 1:03 PM
[2024-09-22] MEDS: HYDROCODONE/ACETAMOPHEN 5/325MG TAB PO PRN (13:06)
--- NOTE | 2024-09-22 13:42 | Discharge Summary ---
Discharge Summary Date of Service September 22, 2024 Principal Dx & Hospital Course #1 = Principal Diagnosis (1) Irritable bowel syndrome: (2) Gastritis: Plan #Intractable headache Trudy is a 54 y/o F with a PMH of hyperlipidemia, obesity s/p gastric bypass, AVR (on Coumadin), migraine, fibromyalgia, insomnia, anxiety and depression presented with intractable headache for [address] without acute findings. She is being admitted for management for management of Migraine. -Likely combination of Migraine and Tension headache with photophobia and phonophobia, exacerbated by her double vision. received 4 gram IV mag. Continue home ativan, topamax and hydrocodone, and reglan with benadryl x 2. 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 She was initiated on Depakote 250mg PO BID - continue at discharge - follow up with headache clinic Headache improving, but not resolved, patient feels comfortable with management at home. AVR: Warfarin 12 mg on M, W and F ; Warfarin 10mg on other days Goal range 3.5-4.5 INR 6.6 today, hold coumadin today, patient will recheck on her home meter tomorrow and call her clinic Hyperlipidemia: Continue Rosuvastatin Anxiety and Depression: Continue Fluoxetine Dispo: discharge to home today Notes For Next Care Provider needs follow-up with a headache clinic Medication Changes From Visit depakote bID Admission HPI Per Admitting Provider Trudy is a 54 y/o F with a PMH of hyperlipidemia, obesity s/p gastric bypass, AVR (on Coumadin), migraines, fibromyalgia, insomnia, anxiety and depression who presents to the emergency department with a female friend (who also provides history) with multiple complaints. The patient complains primarily of a headache "all over". The patient reports a history of migraines, and follows with Dr. Nixon. She is taking sumatriptan as needed for migraine but having severe pain since 10 days. Associated with photophobia, phonophobia. Denies nausea, vomiting. Pain rating 10/10 at home . Received migraine cocktail in the ER . Pain better now rating 4/10 The patient reports that she has been using Botox injections for fibromyalgia without any significant relief. She reports issues with her back as well, and has not had any injections in a long time. Patient also reports recent treatment for sinusitis that did not provide any relief. Has severe diplopia which has limited her activities. The patient reports that she is scheduled for eye surgery for diplopia next month at [facility] in [place]. The. She denies any fever or chills, nausea or significant neck pain. She rates her overall discomfort a 10 out of 10. Patient also reports she had lapse in acre since she moved from [place] to [place] as she has been unable to see a neurologist for trigger point injections in her shoulder. She has been having chronic pain in her shoulders since her open cardiac surgery for cardiac tamponade/TAVR. No recent travel or exposure with sick contacts Er Course: Compazine, Benadryl and Decadron in the ER Discharge Exam General: NAD, VS as above, appears improved from prior Resp: normal respiratory effort, lungs clear to auscultation CV: RRR, no murmur, Extremities: Moves all extremities, no edema Neuro: A&O x3, Discharge Plan Discharge Items Patient Disposition: Home - Self-Care Reason For Visit: HEADACHE Discharge Diagnosis: migraine Condition on Discharge: Good Activity: Resume your previous activity Driving/Machine Use: No limitations Weightbearing: Full weightbearing Non-emergency contact: Primary Care Provider Call non-emergency contact if: you have any medication questions, your symptoms worsen and your temperature is above 101 Follow-up/Referrals: Stephan Alva MD [Primary Care Provider] - 09/29/24 2:15 pm (follow up within one week ) Yeimy Nixon MD [Physician] - (headache clinic - follow up within 2-3 weeks ) Diet: Regular Addtl Attending Provider Instructions: Ms. Baig You were hospitalized after an intractable migraine that was likely a combination of your tension headache and your vision problems. Thankfully the headache has improved with implementation of Depakote and IV migraine cocktails. You will be continued on Depakote at discharge as this helps to prevent migraines. Information about side effects is attached below. Recommend follow up in the headache clinic with Dr. Nixon to discuss if you want to continue this jail. Continue your Topamax. Your INR was significantly elevated today at 6.6, likely because of the steroids you were given. No warfarin tonight, check INR in the morning [facility]. There were no large finidngs on MRI To explain your migraines. The images are in the [facility] system for eye doctor to review prior to upcoming surgery. Please follow up with your PCP within one week Headache clinic within 2-3 weeks CONTACT YOUR PRIMARY CARE PROVIDER if you experience any of the following: Shortness of breath or difficulty breathing Fevers or chills Feeling tired with normal activity or experiencing dizziness or fainting Difficulty following your treatment plan, or difficulty taking medications CALL 911 OR GO TO THE EMERGENCY DEPARTMENT if you experience any of the following: Severe abdominal pain or nausea/vomiting Severe chest pain, or chest pain that radiates (moves) to your jaw or arm Sudden, severe shortness of breath or difficulty breathing Thank you for allowing us to participate in your care. Pending Studies at Discharge: No Stand-Alone Forms: My [facility] Medications and DC Order Prescriptions: New divalproex 250 mg Tablet Extended Release 24 Hr 250 mg PO BID Qty: 60 0RF Continued cholecalciferol (vitamin D3) 25 mcg (1,000 unit) tablet 25 mcg PO DAILY diclofenac sodium 1 % gel 2 g topical QID PRN (Reason: Pain) fluoxetine 20 mg capsule 60 mg PO DAILY rosuvastatin 5 mg tablet 5 mg PO DAILY Qty: 90 3RF sumatriptan succinate 100 mg tablet See Rx Instructions .ROUTE .COMPLEX Qty: 9 10RF Dose Instruction: TAKE 1 TABLET BY MOUTH DAILY NEEDED FOR MIGRAINE HEADACHE Rx Instructions: TAKE 1 TABLET BY MOUTH DAILY NEEDED FOR MIGRAINE HEADACHE dicyclomine 10 mg capsule 10 mg PO QID PRN (Reason: abdominal pain) Qty: 120 0RF montelukast [Singulair] 10 mg tablet 10 mg PO DAILY Qty: 90 3RF potassium chloride [Klor-Con M20] 20 mEq tablet,ER particles/crystals 20 meq PO DAILY Qty: 90 3RF Botox 200 unit recon soln See Rx Instructions IM .COMPLEX Qty: 1 3RF Rx Instructions: 155 UNITS IM IN THE FACE AND NECK MUSCLES EVERY 12 WEEKS PER MIGRAINE PROTOCOL warfarin 5 mg tablet 10 mg PO DAILY Qty: 180 2RF Protocol: Dose Management Condition: Friday (Week One) Dose/Route: 10 mg Instruction: 2 x 5 mg tablets Condition: Friday Dose/Route: 15 mg Instruction: 3 x 5 mg tablets Condition: Friday Dose/Route: 10 mg Instruction: 2 x 5 mg tablets Condition: Friday Dose/Route: 12.5 mg Instruction: 2.5 x 5 mg tablets Condition: Dose/Route: 10 mg Instruction: 2 x 5 mg tablets Condition: Friday Dose/Route: 12.5 mg Instruction: 2.5 x 5 mg tablets Condition: Friday Dose/Route: 10 mg Instruction: 2 x 5 mg tablets Condition: Friday (Week Two) Dose/Route: 10 mg Instruction: 2 x 5 mg tablets Condition: Friday Dose/Route: 12.5 mg Instruction: 2.5 x 5 mg tablets Condition: Friday Dose/Route: 10 mg Instruction: 2 x 5 mg tablets Condition: Friday Dose/Route: 12.5 mg Instruction: 2.5 x 5 mg tablets Condition: Dose/Route: 10 mg Instruction: 2 x 5 mg tablets Condition: Friday Dose/Route: 12.5 mg Instruction: 2.5 x 5 mg tablets Condition: Friday Dose/Route: 10 mg Instruction: 2 x 5 mg tablets Protocol Text: Adjustment Start Date: Friday09/20/24 INR Value: 3.4 INR Date: 09/20/24 Recheck Date: 09/27/24 Rx Instructions: S-T-TH-Sat ondansetron 8 mg tablet,disintegrating 8 mg PO DAILY PRN (Reason: nausea and vomiting) Qty: 30 0RF lorazepam 1 mg tablet 1 mg PO HS Qty: 30 5RF baclofen 10 mg tablet 10 mg PO TID PRN (Reason: muscle spasm) Qty: 90 11RF biotin 5,000 mcg tablet,chewable 5,000 mcg PO DAILY ferrous sulfate [FeroSul] 325 mg (65 mg iron) tablet 325 mg PO QPM calcium crb,[id number] 1 tab PO BID loratadine 10 mg tablet 10 mg PO DAILY PRN (Reason: Allergic Symptoms) Medical Marijuana 1 tab PO HS PRN (Reason: Pain/sleep ) Rx Instructions: 5 MG topiramate 100 mg tablet 100 mg PO BID Qty: 180 3RF pantoprazole 40 mg tablet,delayed release (DR/EC) 40 mg PO DAILY Qty: 30 2RF sumatriptan 20 mg/actuation spray,non-aerosol 20 mg intranasal Q2H PRN (Reason: migraine headache) Qty: 6 1RF Rx Instructions: administer into one nostril as a single dose; if 2nd dose needed,administer into other nostril after at least 2 hrs, NTE 2 doses (40 mg) per episode fluticasone propionate [Flonase Allergy Relief] 50 mcg/actuation spray,suspension 1 spray intranasal BID Qty: 16 0RF warfarin 5 mg Tablet 12.5 mg PO QPM Protocol: Dose Management Condition: Friday (Week One) Dose/Route: 10 mg Instruction: 2 x 5 mg tablets Condition: Friday Dose/Route: 15 mg Instruction: 3 x 5 mg tablets Condition: Friday Dose/Route: 10 mg Instruction: 2 x 5 mg tablets Condition: Friday Dose/Route: 12.5 mg Instruction: 2.5 x 5 mg tablets Condition: Dose/Route: 10 mg Instruction: 2 x 5 mg tablets Condition: Friday Dose/Route: 12.5 mg Instruction: 2.5 x 5 mg tablets Condition: Friday Dose/Route: 10 mg Instruction: 2 x 5 mg tablets Condition: Friday (Week Two) Dose/Route: 10 mg Instruction: 2 x 5 mg tablets Condition: Friday Dose/Route: 12.5 mg Instruction: 2.5 x 5 mg tablets Condition: Friday Dose/Route: 10 mg Instruction: 2 x 5 mg tablets Condition: Friday Dose/Route: 12.5 mg Instruction: 2.5 x 5 mg tablets Condition: Dose/Route: 10 mg Instruction: 2 x 5 mg tablets Condition: Friday Dose/Route: 12.5 mg Instruction: 2.5 x 5 mg tablets Condition: Friday Dose/Route: 10 mg Instruction: 2 x 5 mg tablets Protocol Text: Adjustment Start Date: Friday09/20/24 INR Value: 3.4 INR Date: 09/20/24 Recheck Date: 09/27/24 Rx Instructions: M-W-F triamcinolone acetonide 0.1 % cream 1 applic TOP BID PRN (Reason: Skin Irritation) Rx Instructions: Apply to left leg twice daily x 2 weeks. Then stop x 2 weeks. Repeat course as directed. amoxicillin 500 mg tablet See Rx Instructions .ROUTE .COMPLEX Rx Instructions: 2,000 mg orally 1 hour prior to dental appointment; albuterol sulfate 90 mcg/actuation Hfa Aerosol Inhaler 2 puff INHALATION DAILY PRN (Reason: Shortness Of Breath Or Wheezing) hydrocodone-acetaminophen 5-325 mg tablet 1 tab PO Q8H PRN (Reason: pain) Qty: 10 0RF Discharge Orders: Discharge Order (Routine); Ordered 09/22/24 Ordered By: Cheri Alcantar/Other Patient Handouts: Valproate Delayed Release Oral Capsule, What to Know When Taking�Warfarin Admission Data Admit Date/Time: 09/20/24 18:03 Attending Provider: Mira Suresh Admit Provider: Luma Miller Primary Care Provider: Stephan Alva Other Interventions: Discharge Summary Assessment (RN) Last Done: 09/22/24 15:36 Hospital Stay Data Diagnostic Imagining Performed Head CT 09/20/24 13:05 CT head/brain wo con CLINICAL HISTORY: Headache. TECHNIQUE: Multiple axial CT images of the head were obtained without contrast. A dose lowering technique was utilized adhering to the principles of ALARA. CT DOSE: 547.75 mGy.cm COMPARISON: None FINDINGS: No intracranial hemorrhage seen. No mass effect, midline shift, or hydrocephalus. No skull fracture seen. Visualized paranasal sinuses and mastoid air cells are clear. IMPRESSION: No acute findings. ACT 112: Negative or not required by law. The above report was generated using voice recognition software. It may contain grammatical, syntax or spelling errors. Electronically signed by: Mitchell Horner M.D. 09/20/2024 1:41 PM Brain MRI 09/22/24 09:37 MR brain wo/w con CLINICAL HISTORY: intractable migraine COMPARISON STUDY: 09/20/2024 CT FINDINGS: There is mild motion artifact. No restricted diffusion seen to suggest acute infarction. No mass effect, midline shift, or hydrocephalus. There is a tiny focus of signal drop on the gradient echo sequence medial right frontal lobe, likely tiny calcification. There is a tiny area of encephalomalacia and gliosis in the right periventricular white matter, likely old infarction. No other significant signal abnormality seen in the brain. No abnormal enhancement is seen in the brain. IMPRESSION: 1. No evidence of acute infarction or abnormal enhancement. 2. Otherwise as described. ACT 112: Negative or not required by law. Electronically signed by: Mitchell Horner M.D. 09/22/2024 1:03 PM Pending Results Patient Have Any Pending Studies at Discharge: No Discharge Instructions Given to Patient (Per Discharging Provider) Ms. Baig You were hospitalized after an intractable migraine that was likely a combination of your tension headache and your vision problems. Thankfully the headache has improved with implementation of Depakote and IV migraine cocktails. You will be continued on Depakote at discharge as this helps to prevent migraines. Information about side effects is attached below. Recommend follow up in the headache clinic with Dr. 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 Continue your Topamax. Your INR was significantly elevated today at 6.6, likely because of the steroids you were given. No warfarin tonight, check INR in the morning and call your coumadin clinic to discuss when to resume. There were no large finidngs on MRI To explain your migraines. The images are in the [facility] system for eye doctor to review prior to upcoming surgery. Please follow up with your PCP within one week Headache clinic within 2-3 weeks CONTACT YOUR PRIMARY CARE PROVIDER if you experience any of the following: Shortness of breath or difficulty breathing Fevers or chills Feeling tired with normal activity or experiencing dizziness or fainting Difficulty following your treatment plan, or difficulty taking medications CALL 911 OR GO TO THE EMERGENCY DEPARTMENT if you experience any of the following: Severe abdominal pain or nausea/vomiting Severe chest pain, or chest pain that radiates (moves) to your jaw or arm Sudden, severe shortness of breath or difficulty breathing Thank you for allowing us to participate in your care. Supervising Physician Co-Signing Physician Notes PA Supervision Note: I did not personally see or examine the patient today, but I verified all bryson points of MIKY Mitchell's assessment and plan with the following exceptions/additions: None Total Time Total Time Spent Total Time Spent (In Minutes): Time spent day of discharge 40 minutes including direct patient care, medication reconciliation, documentation, review of labs and images, and coordination of care. Coding Level of Care Code 28209 INP/OBS DISCH >30 MIN Diagnoses Irritable bowel syndrome K58.9 Gastritis K29.70
[2024-09-22] MEDS ORDERED: WARFARIN SOD 2.5 MG TAB PO SCH (16:00)
[2024-09-22] MEDS ORDERED: WARFARIN SOD 10 MG TAB PO SCH (16:00)
== END 2024-09-22 15:36 | disposition home or self-care (01) | DRG 103 ==
LOC: ED 12:25 → INTOOBSV 18:03 → SUATTDRO 18:03 → EDINP 18:03 → 3E 19:14

== ENCOUNTER 2024-10-09 05:44 | Inpatient (IN) ==
--- NOTE | 2024-10-09 06:20 | Emergency Department Note ---
Impression & Plan Complicated urinary tract infection, Acute flank pain, Acute blood loss anemia, Gross hematuria, Sepsis, Chronic anticoagulation ED Provider Note NAME: LINDA PITTS AGE: 54 SEX: F : 1970 ARRIVES VIA: Walk-In INFORMANT: Patient, ED PROVIDER(S): Darrin Macias DO CHIEF COMPLAINT: Gross hematuria HPI: This is a 54-year-old female with the PMHx of fibromyalgia, HLD, chronic anticoagulation, and recent obstructing stone s/p lithotripsy and ureteral stent on presenting to [facility] for further evaluation of fever and worsening abdominal/flank pain. Patient is accompanied by family who provide additional history. the patient had lithotripsy and right ureteral stent placement after she was found to have kidney stones. Patient had this procedure on . She has had intermittent bleeding since but now has ryanne blood in the urine. Patient having dysuria and frequency. She has a sensation of incompletion of voids. Patient notes that she did have a prehospital fever of 100.4 F. She took her pain medication as well as Tylenol prior to arrival. She states currently she is not having severe pain. She is reporting over the last few days she has had right flank pain that radiates into the right lower quadrant. Patient does report abdominal surgical history including gastric bypass. Patient states that she has had intermittent nausea without emesis. Poor appetite. No cough or congestion. Denies chest pain or palpitations. No shortness of breath. No recent changes in bowel movements. Patient denies recent changes in medications or OTC supplements. Patient offers no other complaints, today. ADDITIONAL HISTORY OBTAINED: Per HPI Chronic Medical/Social Conditions Affecting Care: Per HPI PAST MEDICAL HISTORY: See Below PAST SURGICAL HISTORY: See Below FAMILY HISTORY: See Below SOCIAL HISTORY: See Below HOME MEDICATIONS: See Below ALLERGIES: See Below VITALS: See Below PHYSICAL EXAMINATION: GENERAL: Sitting up in bed, alert, ill appearing, well nourished, no distress, non-toxic EYE EXAM: normal conjunctiva. PERRL and EOM's grossly intact. OROPHARYNX: no exudate, no erythema, lips, buccal mucosa, and tongue normal and mucous membranes are moist NECK: supple, no nuchal rigidity, no adenopathy, non-tender LUNGS: Clear to auscultation. Normal chest wall mechanics HEART: no murmurs, regular rate, regular rhythm ABDOMEN: abdomen soft, non-tender, no masses, no rebound or guarding. BACK: Back is symmetrical on inspection and there is no deformity, no midline tenderness, R CVA tenderness. SKIN: no rashes and no bruising UPPER EXTREMITIES: upper extremities are grossly normal. LOWER EXTREMITIES: No pitting edema. NEURO EXAM: Normal sensorium, GCS 15, normal speech, no gross weakness of arms, no gross weakness of legs. MEDICAL DECISION MAKING: Differential diagnoses includes but not limited to appendicitis, bowel obstruction, diverticulitis, malignancy, nephrolithiasis, gastroenteritis, ACS, PNA, pancreatitis, hepatobiliary disease, UTI, gross hematuria, postoperative bleeding, postoperative complication In summary, this is a 54 year old female who presented with gross hematuria and increased R flank/abdominal pain. Differential as above. Nursing notes and pertinent past medical records reviewed. Vital signs reviewed and the patient is borderline hypotensive but otherwise afebrile and hemodynamically stable. Please note the patient's blood pressure is borderline hypotensive at baseline. Do not think the patient has significant hypotension at this time. History and presentation revealed recent right ureteral stent placement as well as lithotripsy for kidney stones now with gross hematuria and worsening pain as well as urinary tract infection symptoms. Physical examination revealed as above. As a result of my initial evaluation, plan for repeat lab workup as well as urinalysis and CT abdomen/pelvis. Do suspect this likely could be a postoperative complication. She does have UTI symptoms with gross hematuria. Patient likely could have a complicated UTI as well. Patient having severe pain that has been difficult to manage as an outpatient. Diagnostics interpreted by me include EKG and cardiac monitoring as listed below: -Cardiac Monitoring: An order was placed for continuous cardiac monitoring. The monitor shows a rate of 60-70s with regular rhythm. -ECG: EKG independently interpreted by me reveals sinus tachycardia at a rate of [address] segment changes to suggest STEMI. There are T wave inversions throughout the inferior leads. Intervals are otherwise within normal limits. Patient completed laboratory studies and imaging. Results independently interpreted by me are Hgb 9.4 which is downtrended from baseline 13.5 on 09/29 with lowest 11.8 at 8/. I suspect most of the patient's blood loss is through the genitourinary symptoms given the patient's severe gross hematuria. Could be related to the postoperative period. Cannot completely rule out a hemorrhage from possible postoperative injury. The patient was managed with IV fluid resuscitation, antiemetics and broad-spectrum antibiotics. CMP shows no significant kidney dysfunction but mild increased creatinine to BUN ratio likely representing from mild dehydration. No DAPHNEY. Patient has no elevation in LFTs. Electrolytes are normal. Urinalysis shows 3+ blood as well as nitrate positive with significant pyuria. There is no bacteriuria. Do feel this could represent a UTI or pyelonephritis. Lactate and kidney function are normal making it less suspicious of hypoperfusion. Ultimately, the decision was made to admit the patient for sepsis 2/2 complicated UTI c/b gross hematuria. It was recommended to admit this patient at 0729. I discussed the case with the hospitalist service via telephone/TigerText and they are agreeable to admit the patient to their services at [address] Montejo. Based on the above, including the patient's age, coexisting illnesses, labs, imaging, and exam findings the decision to treat as an inpatient. I discussed the patient with the hospitalist team who recommended admission to their services. They received the medications, treatments, interventions indicated above and their condition remained guarded. I discussed my findings with the patient and their family and they understand and agree with the treatment plan. All patient / family questions were answered to their satisfaction. Consults/Care Managements Discussions: Per MDM ER treatment provided: See above Procedures:none Critical Care: None The chart was completed utilizing Pikimal Speech voice recognition software. Grammatical errors, random word insertions, pronoun errors, and incomplete sentences are an occasional consequence of this system due to software limitations, ambient noise, and hardware issues. Any formal questions or concerns about the content, text, or information contained within the body of this dictation should be directly addressed to the physician for clarification. Past Med/Surg History Problem List (Updated 10/09/24 @ 15:28 by Darrin Macias DO) Chronic anticoagulation (Acute) Sepsis (Acute) Gross hematuria (Acute) Acute blood loss anemia (Acute) Acute flank pain (Acute) Complicated urinary tract infection (Acute) Complicated UTI (urinary tract infection) Elevated liver transaminase level Strabismus Nephrolithiasis Acute flank pain (Acute) Hydronephrosis (Acute) Renal colic (Acute) Chronic pain of right knee Elevated liver function tests Family history of colon cancer Radicular pain of thoracic region Chronic migraine without aura, not intractable Mechanical heart valve present (Chronic) AVR 2008 for bicuspid aortic valve 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) Hypercholesteremia (Chronic) Fibromyalgia (Chronic) Chronic anticoagulation (Chronic) Medical History Irritable bowel syndrome Gastritis Migraine Dehydration chronic - "I get easily dehydrated, especially when NPO" as per patient PONV (postoperative nausea and vomiting) History of congenital aortic insufficiency congenital aortic stenosis- s/p AVR Hx of hypercholesterolemia Hx of renal calculi Myofascial pain syndrome of thoracic spine Anxiety and depression Mig[place] [facility] [place] [facility] Chronic anticoagulation Warfarin Dyslipidemia Insomnia History of COVID-19 (2020) no hosp; resolved Fibromyalgia Hx-TIA (transient ischemic attack) ~2005- occasional double vision since; follows w/ [facility] Personal history of gastric bypass Surgical History Mechanical heart valve present AVR 2008 for bicuspid aortic valve History of esophagogastroduodenoscopy (EGD) Hx of colonoscopy (07/2024) Aortic valve replaced (2008) History of lithotripsy S/P total hysterectomy bso S/P cholecystectomy S/P eye surgery S/P D&C (status post dilation and curettage) S/P hernia surgery S/P gastric bypass (2002) fiona en y S/P tubal ligation x2 S/P right heart catheterization multiple, no stents last one prior to valve replacement 2008 Family History Sister Colorectal cancer Father Diabetes Heart disease Hypertension Stroke Mother Diabetes Heart disease Hypertension Aunt Ovarian cancer Denies family history of Prostate cancer Breast cancer Social History Smoking Status: Never smoker Second Hand Exposure: Yes (hx as child); Do You Dip or Chew Tobacco: No; Hx Alcohol Use: Yes Alcohol type: wine Alcohol Intake Frequency: Monthly or Less Hx Substance Use: Yes (medical card) Prescribed Medications: Marijuana Last Used Substance: Hours (ago) Last Used Substance Other:: uses 5mg every night (oral tablet) Substance Use Type Other:: medical Preferred Language: Ukrainian Communication Ability: Effective Visual Impairment: Limited Hearing Ability: Normal Print Line Tailer Required: No Beliefs That Will Affect Care: None marital status: Single Current Living Situation: Alone current occupational status: disabled How many Children do You have: 3 Feels Safe at Home: Yes Childhood Exposure to Second-Hand Smoke: Yes Diet: other and regular Diet Comment: low sugar caffeine: Yes during the past year weight has: remained stable Dental Care, Regularly: Yes Physical Activity Frequency: Daily Seatbelt Use: always Sunscreen Use: Yes Assistive Devices: Glasses Allergies Allergies Allergy/AdvReac Type Severity Reaction Status Date / Time cinnamon Allergy Severe lips and Verified 10/07/24 09:07 throat swelling [place] [employer]atives Allergy Severe ulcers in Verified 10/07/24 09:07 mouth Horse/Equine Containing Allergy Severe breathing Verified 10/07/24 09:07 Products issues, nasal congestion, coughing, sneezing adhesive Allergy Intermediate Redness of Verified 10/07/24 09:07 Skin Cephalosporins Allergy Intermediate Rash with Verified 10/07/24 09:07 Keflex amitriptyline AdvReac Severe Night Verified 10/07/24 09:07 Terros duloxetine AdvReac Intermediate Gastrointestinal Verified 10/07/24 09:07 Upset gabapentin AdvReac Intermediate Gastrointestinal Verified 10/07/24 09:07 Upset Home Meds Home Medications Medication Instructions Recorded Confirmed calcium crb,[id number] 1 tab PO BID 10/23/22 10/09/24 [Citracal Plus Bone Density] biotin 5,000 mcg chewable tablet 5,000 mcg PO DAILY 01/15/23 10/09/24 ferrous sulfate 325 mg (65 mg 325 mg PO QPM 01/15/23 10/09/24 iron) tablet (FeroSul) loratadine 10 mg tablet (Claritin) 10 mg PO DAILY PRN Allergic 01/15/23 10/09/24 Symptoms cholecalciferol (vitamin D3) 25 25 mcg PO DAILY 06/07/24 10/09/24 mcg (1,000 unit) tablet diclofenac sodium 1 % topical gel 2 g topical QID PRN Pain 06/07/24 10/09/24 fluoxetine 20 mg capsule (Prozac) 60 mg PO QAM 06/07/24 10/09/24 triamcinolone acetonide 0.1 % 1 applic topical BID PRN Skin 07/13/24 10/09/24 topical cream Irritation warfarin 5 mg tablet 12.5 mg PO QPM 07/13/24 10/09/24 Medical Marijuana 1 tab PO HS PRN Pain/sleep 08/31/24 10/09/24 albuterol sulfate 90 mcg/actuation 2 puff inhalation DAILY PRN 09/20/24 10/09/24 aerosol inhaler Shortness Of Breath Or Wheezing amoxicillin 500 mg tablet See Rx Instructions .Route .COMPLEX 09/20/24 10/09/24 montelukast 10 mg tablet 10 mg PO HS 10/04/24 10/09/24 (Singulair) rosuvastatin 5 mg tablet (Crestor) 5 mg PO HS 10/04/24 10/09/24 tamsulosin 0.4 mg capsule (Flomax) 0.4 mg PO QAM 10/04/24 10/09/24 divalproex 250 mg tablet,extended 250 mg PO BID 10/07/24 10/09/24 release 24 hr (Depakote ER) enoxaparin 100 mg/mL subcutaneous 100 mg subcut Q12H 10/07/24 10/09/24 syringe (Lovenox) sumatriptan succinate 100 mg 100 mg PO DAILY PRN Migraine 10/07/24 10/09/24 tablet (Imitrex) Headache topiramate 100 mg tablet (Topamax) 100 mg PO BID 10/07/24 10/09/24 onabotulinumtoxinA 200 unit 155 unit IM UD 10/09/24 10/09/24 solution for injection (Botox) Previous Rx's Medication Instructions Recorded dicyclomine 10 mg capsule 10 mg PO QID PRN abdominal pain 02/19/24 #120 caps potassium chloride 20 mEq 20 meq PO DAILY #90 tabs 03/02/24 tablet,extended release(part/cryst) (Klor-Con M) warfarin 5 mg tablet 10 mg PO DAILY #180 tabs 06/09/24 ondansetron 8 mg disintegrating 8 mg PO DAILY PRN nausea and 08/18/24 tablet vomiting #30 tabs baclofen 10 mg tablet 10 mg PO TID PRN muscle spasm #90 09/21/24 tabs hydrocodone 5 mg-acetaminophen 325 1 tab PO Q8H PRN pain #10 tabs 09/22/24 mg tablet oxycodone 5 mg tablet 5 mg PO Q6H PRN pain #10 tabs 09/26/24 lorazepam 1 mg tablet 1 mg PO BID #60 tabs 10/05/24 levofloxacin 500 mg tablet 500 mg PO DAILY 7 days #7 tabs 10/07/24 oxycodone-acetaminophen 7.5 mg-325 1 tab PO Q8H PRN pain 3 days #7 10/07/24 mg tablet (Percocet) tabs phenazopyridine 200 mg tablet 200 mg PO Q8H PRN pain #10 tabs 10/07/24 (Pyridium) tamsulosin 0.4 mg capsule 0.4 mg PO HS #30 caps 10/07/24 doxycycline hyclate 100 mg capsule 100 mg PO BID 7 days #14 caps 10/08/24 fluticasone propionate 50 1 spray intranasal BID #16 grams 10/08/24 mcg/actuation nasal spray,suspension (Flonase Allergy Relief) Results & Data (ED) Vital Signs Vital Signs - 24 hr 10/09/24 05:45 10/09/24 06:00 10/09/24 06:03 Temperature 36.7 C Temperature Source Oral Pulse Rate 73 62 Pulse Rate [Apical] 60 Pulse Rhythm Regular Pulse Strength Normal Respiratory Rate 18 16 Respiratory Effort / Characteristics Non-Labored Spontaneous Non-Labored Spontaneous Respiratory Depth Normal Normal Respiratory Pattern Regular Regular Blood Pressure 78/53 L Blood Pressure [Right Arm] 101/44 L Blood Pressure Mean 61 Blood Pressure Mean [Right Arm] 63 Blood Pressure Position Sitting Blood Pressure Position [Right Arm] Lying Pulse Oximetry 97 98 Oxygen Delivery Method Room Air Room Air Sepsis Recent Fever Within 48 Hours Yes Sepsis New/Unexplained Change in Mental Status N/A Sepsis Action Taken by Nursing No Action Required 10/09/24 07:52 Temperature Temperature Source Pulse Rate Pulse Rate [Apical] 62 Pulse Rhythm Pulse Strength Respiratory Rate 16 Respiratory Effort / Characteristics Respiratory Depth Respiratory Pattern Blood Pressure Blood Pressure [Right Arm] 81/60 L Blood Pressure Mean Blood Pressure Mean [Right Arm] 67 Blood Pressure Position Blood Pressure Position [Right Arm] Pulse Oximetry 97 Oxygen Delivery Method Room Air Sepsis Recent Fever Within 48 Hours Sepsis New/Unexplained Change in Mental Status Sepsis Action Taken by Nursing Laboratory Data 10/09/24 05:55 10/09/24 05:55 Lab Results 10/09/24 10/09/24 10/09/24 Range/Units 05:55 06:10 06:21 WBC 8.63 (4.8-10.8) K/ul RBC 3.03 L (4.20-5.40) M/uL Hgb 9.4 L (12.0-16.0) g/dl POC Hgb 9.5 L (12.0-16.0) g/dl Hct 29.1 L (37.0-47.0) % POC Hct 28 L (37-47) % MCV 96.0 (80.0-100.0) fL MCH 31.0 (25.0-34.0) pg MCHC 32.3 (32.0-36.0) g/dL RDW Std Deviation 47.7 H (36.4-46.3) fL RDW Coeff of Travis 13.4 (11.5-14.5) % Plt Count 188 (130-400) K/uL MPV 11.6 (9.4-12.4) fL Immature Gran % (Auto) 0.3 % Neut % (Auto) 64.6 % Lymph % (Auto) 20.4 % [place] % (Auto) 11.5 % Eos % (Auto) 2.9 % Baso % (Auto) 0.3 % Neut # (Auto) 5.57 (1.40-6.50) K/uL Lymph # (Auto) 1.76 (1.20-3.40) K/uL [place] # (Auto) 0.99 H (0.11-0.59) K/uL Eos # (Auto) 0.25 (0.00-0.50) K/uL Baso # (Auto) 0.03 (0.00-0.20) K/uL Immature Gran # (Auto) 0.03 (0.01-0.20) K/uL PT (9.0-12.0) Seconds INR (0.9-1.1) APTT (21-31) Seconds PTT Ratio POC Sodium 140 (135-144) mmol/L Sodium 139 (136-145) mmol/L POC Potassium 3.6 (3.3-5.0) mmol/L Potassium 3.6 (3.5-5.1) mmol/L POC Chloride 105 (101-112) mmol/L Chloride 107 (98-107) mmol/L Carbon Dioxide 24 (21-32) mmol/L POC Total CO2 22 L (24-31) mmol/L Anion Gap 8 (3-11) POC Anion Gap 18.0 (16-25) mmol/L POC BUN 25 H (7-18) mg/dl BUN 27 H (6-23) mg/dl Creatinine 1.16 (0.6-1.2) mg/dl POC Creatinine 1.3 (0.6-1.3) mg/dl Est Cr Clr Drug Dosing 51.3 ml/min eGFR 55.68 BUN/Creatinine Ratio 23.3 H (10-20) Glucose 104 H (70-99(Fasting)) mg/dl POC Glucose (other) 102 H (70-99) mg/dl Lactate 0.9 (0.4-2.0) mmol/L Calcium 8.7 (8.6-10.3) mg/dl POC Ioniz Calcium Dior 1.20 (1.12-1.32) mmol/l Total Bilirubin 0.2 (0.2-1.0) mg/dl AST 38 (13-39) U/L ALT 41 (7-52) U/L Alkaline Phosphatase 51 (34-104) U/L Total Protein 5.9 L (6.0-8.3) gm/dl Albumin 3.3 L (3.4-5.0) gm/dl Globulin 2.6 (2.5-4.0) gm/dl Albumin/Globulin Ratio 1.3 (0.9-2) Procalcitonin 0.25 (0-0.5) ng/ml Urine Color Red Urine Appearance Cloudy A (Clear) Urine pH 7.0 (4.5-7.5) Ur Specific [place] 1.025 (1.000-1.030) Urine Protein 3+ H (Negative) Urine Glucose (UA) Negative (Negative) Urine Ketones Negative (Negative) Urine Blood 3+ H (Negative) Urine Nitrite Positive A (Negative) Urine Bilirubin Negative (Negative) Urine Urobilinogen Negative (Negative) Ur Leukocyte Esterase Trace H (Negative) Urine RBC >20 H (0-2) /hpf Urine WBC >50 H (0-5) /hpf Ur Epithelial Cells 0-2 (0-2) /hpf Urine Bacteria None Seen (None Seen) Urine Comment 10/09/24 Range/Units 06:54 WBC (4.8-10.8) K/ul RBC (4.20-5.40) M/uL Hgb (12.0-16.0) g/dl POC Hgb (12.0-16.0) g/dl Hct (37.0-47.0) % POC Hct (37-47) % MCV (80.0-100.0) fL MCH (25.0-34.0) pg MCHC (32.0-36.0) g/dL RDW Std Deviation (36.4-46.3) fL RDW Coeff of Travis (11.5-14.5) % Plt Count (130-400) K/uL MPV (9.4-12.4) fL Immature Gran % (Auto) % Neut % (Auto) % Lymph % (Auto) % [place] % (Auto) % Eos % (Auto) % Baso % (Auto) % Neut # (Auto) (1.40-6.50) K/uL Lymph # (Auto) (1.20-3.40) K/uL [place] # (Auto) (0.11-0.59) K/uL Eos # (Auto) (0.00-0.50) K/uL Baso # (Auto) (0.00-0.20) K/uL Immature Gran # (Auto) (0.01-0.20) K/uL PT 27.8 H (9.0-12.0) Seconds INR 2.8 H (0.9-1.1) APTT 44 H (21-31) Seconds PTT Ratio 1.6 POC Sodium (135-144) mmol/L Sodium (136-145) mmol/L POC Potassium (3.3-5.0) mmol/L Potassium (3.5-5.1) mmol/L POC Chloride (101-112) mmol/L Chloride (98-107) mmol/L Carbon Dioxide (21-32) mmol/L POC Total CO2 (24-31) mmol/L Anion Gap (3-11) POC Anion Gap (16-25) mmol/L POC BUN (7-18) mg/dl BUN (6-23) mg/dl Creatinine (0.6-1.2) mg/dl POC Creatinine (0.6-1.3) mg/dl Est Cr Clr Drug Dosing ml/min eGFR BUN/Creatinine Ratio (10-20) Glucose (70-99(Fasting)) mg/dl POC Glucose (other) (70-99) mg/dl Lactate (0.4-2.0) mmol/L Calcium (8.6-10.3) mg/dl POC Ioniz Calcium Dior (1.12-1.32) mmol/l Total Bilirubin (0.2-1.0) mg/dl AST (13-39) U/L ALT (7-52) U/L Alkaline Phosphatase (34-104) U/L Total Protein (6.0-8.3) gm/dl Albumin (3.4-5.0) gm/dl Globulin (2.5-4.0) gm/dl Albumin/Globulin Ratio (0.9-2) Procalcitonin (0-0.5) ng/ml Urine Color Urine Appearance (Clear) Urine pH (4.5-7.5) Ur Specific [place] (1.000-1.030) Urine Protein (Negative) Urine Glucose (UA) (Negative) Urine Ketones (Negative) Urine Blood (Negative) Urine Nitrite (Negative) Urine Bilirubin (Negative) Urine Urobilinogen (Negative) Ur Leukocyte Esterase (Negative) Urine RBC (0-2) /hpf Urine WBC (0-5) /hpf Ur Epithelial Cells (0-2) /hpf Urine Bacteria (None Seen) Urine Comment Administered Medications Divalproex Sodium (Divalproex Extended Release 250 Mg Tabcr) 250 mg PO BID [facility] Stop: 11/08/24 11:29 Last Admin: 10/09/24 11:58 Dose: 250 mg Documented By: JOSIAH Enoxaparin Sodium (Enoxaparin 100 Mg/1ml Syr) 100 mg SQ Q12H [facility] Stop: 11/08/24 12:29 Last Admin: 10/09/24 13:15 Dose: 100 mg Documented By: JOSIAH Fluoxetine HCl (Fluoxetine Hcl 20 Mg Cap) 60 mg PO QAM [facility] Stop: 11/08/24 11:29 Last Admin: 10/09/24 11:58 Dose: 60 mg Documented By: JOSIAH Fluticasone Propionate (Fluticasone Propionate Na Spr 16 Gm Btl) 1 sprays NA BID [facility] Stop: 11/08/24 11:29 Last Admin: 10/09/24 11:58 Dose: 1 sprays Documented By: JOSIAH Piperacillin Sod/Tazobactam Sod (Zosyn) 4.5 gm in 100 mls @ 25 mls/hr IV Q8H [facility]; Protocol Stop: 10/19/24 11:29 Last Admin: 10/09/24 12:00 Dose: 25 mls/hr Documented By: JOSIAH Parenteral Electrolytes (Plasma-Lyte A Ph 7.4) 1,000 mls @ 80 mls/hr IV .[id number] Stop: 10/12/24 08:59 Last Admin: 10/09/24 09:05 Dose: 80 mls/hr Documented By: KAYLYN Oxycodone HCl (Oxycodone Hcl Ir 5 Mg Tab (Immediate Release)) 5 mg PO Q6H PRN PRN Reason: pain Stop: 10/23/24 11:13 Last Admin: 10/09/24 11:27 Dose: 5 mg Documented By: JOSIAH Senna/Docusate Sodium (Docusate Sodium/Senna 50/8.6mg Tab) 1 tab PO BID [facility] Stop: 11/08/24 08:59 Last Admin: 10/09/24 10:03 Dose: 1 tab Documented By: JOSIAH Topiramate (Topiramate 100 Mg Tab) 100 mg PO BID [facility] Stop: 11/08/24 11:29 Last Admin: 10/09/24 11:58 Dose: 100 mg Documented By: JOSIAH Discontinued Medications Hydromorphone HCl (Hydromorphone Inj 0.5 Mg/0.5 Ml Syr) 0.5 mg IV NOW STA Stop: 10/09/24 13:27 Last Admin: 10/09/24 13:30 Dose: 0.5 mg Documented By: JOSIAH Sodium Chloride (Nss) 1,000 mls @ 999 mls/hr IV .Q1H1M ONE Stop: 10/09/24 06:55 Last Infusion: 10/09/24 07:33 Dose: Infused Documented By: Admin: 10/09/24 06:22 Dose: 999 mls/hr Documented By: RONY Piperacillin Sod/Tazobactam Sod (Zosyn) 4.5 gm in 100 mls @ 200 mls/hr IV NOW ONE; Protocol Stop: 10/09/24 06:29 Last Infusion: 10/09/24 07:33 Dose: Infused Documented By: Admin: 10/09/24 06:21 Dose: 200 mls/hr Documented By: RONY Sodium Chloride (Nss) 1,000 mls @ 999 mls/hr IV .Q1H1M ONE Stop: 10/09/24 08:25 Last Infusion: 10/09/24 08:38 Dose: Infused Documented By: Admin: 10/09/24 07:32 Dose: 999 mls/hr Documented By: ELIGIO Ioversol (Optiray 320 100ml) 94 ml IV ONCE ONE Stop: 10/09/24 06:27 Last Admin: 10/09/24 06:26 Dose: 94 ml Documented By: FRANCOISE Morphine Sulfate (Morphine Sulfate 4 Mg/Ml 1 Ml Carp\\Vial) 4 mg IV NOW STA Stop: 10/09/24 08:47 Last Admin: 10/09/24 10:03 Dose: 4 mg Documented By: JOSIAH Morphine Sulfate (Morphine Sulfate 4 Mg/Ml 1 Ml Carp\\Vial) 4 mg IV NOW STA Stop: 10/09/24 11:16 Last Admin: 10/09/24 11:27 Dose: 4 mg Documented By: JOSIAH Ondansetron HCl (Ondansetron Inj 2 Mg/Ml 2 Ml Vial) 4 mg IV NOW STA Stop: 10/09/24 06:14 Last Admin: 10/09/24 06:26 Dose: 4 mg Documented By: RONY Imaging Data Radiologist's Impression: Abdomen/Pelvis CT 10/09/24 06:12 EXAM: CT abd pelvis IV con only CLINICAL HISTORY: eval for stone, pyelo, hydro TECHNIQUE: Contiguous axial images were obtained from the level of the diaphragm to the pubic symphysis with intravenous contrast. Coronal and sagittal reconstructions were likewise performed and indicated to increase the sensitivity for detecting clinically relevant pathology. If IV contrast material had not been administered, the likelihood of detecting abnormalities relevant to the patient's condition would have been substantially decreased. CT scan was performed according to ALARA (as low as reasonable achievable). COMPARISON: 18:21:00 SUPERVISOR MENDING FINDINGS: Small calcified sprain granuloma is noted in right lower lobe of lung. Few atelectatic bands are noted involving bilateral lung bases. The liver is normal in size and attenuation. No focal liver lesions are seen. There is no intra or extrahepatic biliary ductal dilatation. Hepatic vasculature is patent. Status post-cholecystectomy. The spleen, pancreas, and adrenal glands are unremarkable. Multiple calcified splenic granulomas. The kidneys are normal in size and attenuation. There is no hydronephrosis or perinephric fat stranding. Right kidney show nonobstructing calculus of size 2mm in middle calyx. DJ stent is seen in situ on right side without obvious complication. The ureters are normal in caliber and no ureteral calculi are seen. The bladder is normal in contour. Pelvic viscera are unremarkable. No focal or diffuse bowel wall thickening or evidence of bowel obstruction is identified. Post-operative changes are seen in stomach and small bowel loops. No inflamed appendix is visualized in the right lower quadrant. Abdominal and pelvic vasculature is patent. No adenopathy or fluid collections are seen. No aggressive appearing osseous lesions are identified. IMPRESSION: Status post-cholecystectomy. -stable. Multiple calcified splenic granulomas.-stable. Right kidney show nonobstructing calculus of size 2mm in middle calyx.-stable. DJ stent is seen in situ on right side without obvious complication.-new placement.( prior right ureteric calculus is not seen in current study) No other new interval abnormality since prior study. Electronically signed by Topher Amador 10-09-2024 07:15 AM Discharge Plan Visit Data Chief Complaint: Fever Stated Complaint: FEVER,BLOOD IN URINE ED Provider: Darrin Macias Discharge Problem: Complicated urinary tract infection, Acute flank pain, Acute blood loss anemia, Gross hematuria, Sepsis, Chronic anticoagulation Patient Disposition: Admitted As Inpatient Condition: Serious Discharge Instructions Interventions: ED Discharge Assessment Last Done: 10/09/24 11:10
[2024-10-09] MEDS: PIPERACILLIN/TAZOBACTAM 4.5 GM/100 ML BAG IV ONE (06:21)
[2024-10-09] MEDS: SODIUM CHLORIDE 0.9% 1,000 ML IV ONE ×2 (06:22→07:32)
[2024-10-09] MEDS: ONDANSETRON INJ 2 MG/ML 2 ML VIAL IV STA (06:26)
[2024-10-09] MEDS: OPTIRAY 320 100ml IV ONE (06:26)
[2024-10-09 06:32] LABS: Hematocrit (blood only) 29.1 % (37.0-47.0); Hemoglobin 9.4 g/dl (12.0-16.0); Immature Granulocytes # (auto) 0.03 K/uL (0.01-0.20); Immature Granulocytes % (auto) 0.3 %; Mean Corpuscular Hemoglobin 31.0 pg (25.0-34.0); Mean Corpuscular Volume 96.0 fL (80.0-100.0); Platelet Count 188 K/uL (130-400); RDW Standard Deviation 47.7 fL (36.4-46.3); Red Blood Count 3.03 M/uL (4.20-5.40); White Blood Count 8.63 K/ul (4.8-10.8)
[2024-10-09 06:48] LABS: Appearance Urine Cloudy (Clear); Glucose Urine UA Negative (Negative)
[2024-10-09 06:57] LABS: Epithelial Cell Urine 0-2 /hpf (0-2)
[2024-10-09 06:57] LABS: Alanine Aminotransferase 41.0 U/L (7-52); Albumin Globulin Ratio 1.3 (0.9-2); Alkaline Phosphatase 51.0 U/L (34-104); Anion Gap 8.0 (3-11); Bilirubin,Total 0.2 mg/dl (0.2-1.0); Blood Urea Nitrogen 27.0 mg/dl (6-23); Calcium 8.7 mg/dl (8.6-10.3); Carbon Dioxide 24.0 mmol/L (21-32); Chloride 107.0 mmol/L (98-107); Creatinine Clr Calc Pharmacy 51.3 ml/min; Globulin 2.6 gm/dl (2.5-4.0); Glucose 104.0 mg/dl (70-99(Fasting)); Potassium 3.6 mmol/L (3.5-5.1); Sodium 139.0 mmol/L (136-145); Total Protein 5.9 gm/dl (6.0-8.3)
--- NOTE | 2024-10-09 07:15 | CT Scan Report ---
EXAM: CT abd pelvis IV con only CLINICAL HISTORY: eval for stone, pyelo, hydro TECHNIQUE: Contiguous axial images were obtained from the level of the diaphragm to the pubic symphysis with intravenous contrast. Coronal and sagittal reconstructions were likewise performed and indicated to increase the sensitivity for detecting clinically relevant pathology. If IV contrast material had not been administered, the likelihood of detecting abnormalities relevant to the patient's condition would have been substantially decreased. CT scan was performed according to ALARA (as low as reasonable achievable). COMPARISON: 18:21:00 PIPE COVERING MOLDER FINDINGS: Small calcified sprain granuloma is noted in right lower lobe of lung. Few atelectatic bands are noted involving bilateral lung bases. The liver is normal in size and attenuation. No focal liver lesions are seen. There is no intra or extrahepatic biliary ductal dilatation. Hepatic vasculature is patent. Status post-cholecystectomy. The spleen, pancreas, and adrenal glands are unremarkable. Multiple calcified splenic granulomas. The kidneys are normal in size and attenuation. There is no hydronephrosis or perinephric fat stranding. Right kidney show nonobstructing calculus of size 2mm in middle calyx. DJ stent is seen in situ on right side without obvious complication. The ureters are normal in caliber and no ureteral calculi are seen. The bladder is normal in contour. Pelvic viscera are unremarkable. No focal or diffuse bowel wall thickening or evidence of bowel obstruction is identified. Post-operative changes are seen in stomach and small bowel loops. No inflamed appendix is visualized in the right lower quadrant. Abdominal and pelvic vasculature is patent. No adenopathy or fluid collections are seen. No aggressive appearing osseous lesions are identified. IMPRESSION: Status post-cholecystectomy. -stable. Multiple calcified splenic granulomas.-stable. Right kidney show nonobstructing calculus of size 2mm in middle calyx.-stable. DJ stent is seen in situ on right side without obvious complication.-new placement.( prior right ureteric calculus is not seen in current study) No other new interval abnormality since prior study. Electronically signed by Topher Amador 10-09-2024 07:15 AM
--- NOTE | 2024-10-09 07:47 | History & Physical Report ---
Date of Service October 09, 2024 Assessment & Plan (1) Nephrolithiasis: (2) Acute flank pain: (3) Complicated UTI (urinary tract infection): (4) Chronic anticoagulation: (5) Dyslipidemia: Plan #Complicated UTI - CT abd / pelvis reviewed - cover broadly with zosyn - IVF - UA showing pyuria, hematuria, + nitrite - BCx / UCx pending - urology consulted, pending recs - pain control with oxycodone, morphine #Mild hypotension - cont IVF and monitor closely #Anemia - hgb checked after fluids, suspecting a combination of loss and dilution - monitor closely #Mechanical AVR with hx of thrombus - pt reports INR goal: 3.5 - 4.5 - cont coumadin / lovenox bridging - monitor INR #Fibromyalgia #Anxiety/depression #Migraines - cont depakote, fluoxetine #Constipation - Senna S 1 tab BID - miralax prn #HLD - cont statin #DVT ppx: therapeutic INR #Code status: full code #Dispo- admit History of Present Illness Primary Care Provider: Stephan Alva MD 54 yr old F with PMHx of HLD, obesity s/p gastric bypass, aortic valve replacement on coumadin, migraine, fibromyalgia, insomnia, anxiety / depression. Pt was recently in the hospital on 10/07/24 for right ureteral stone s/p lithotripsy and right ureteral stent placement. Over the last 24 hours, she has developed increasing right flank pain that is radiating to the right groin. Pain is sharp / dull / achy / crampy that comes and goes but does not fully resolve. She also noticed hematuria and is passing quarter size clots. This morning around 2am, she had a fever of 100.4F. Allergies Allergy/AdvReac Type Severity Reaction Status Date / Time cinnamon Allergy Severe lips and Verified 10/07/24 09:07 throat swelling Panacea And Derivatives Allergy Severe ulcers in Verified 10/07/24 09:07 mouth Horse/Equine Containing Allergy Severe breathing Verified 10/07/24 09:07 Products issues, nasal congestion, coughing, sneezing adhesive Allergy Intermediate Redness of Verified 10/07/24 09:07 Skin Cephalosporins Allergy Intermediate Rash with Verified 10/07/24 09:07 Keflex amitriptyline AdvReac Severe Night Verified 10/07/24 09:07 Terros duloxetine AdvReac Intermediate Gastrointestinal Verified 10/07/24 09:07 Upset gabapentin AdvReac Intermediate Gastrointestinal Verified 10/07/24 09:07 Upset Home Medications Medication Instructions Recorded Confirmed Type calcium crb,[id number] 1 tab PO BID 10/23/22 10/09/24 History [Citracal Plus Bone Density] biotin 5,000 mcg chewable tablet 5,000 mcg PO DAILY 01/15/23 10/09/24 History ferrous sulfate 325 mg (65 mg 325 mg PO QPM 01/15/23 10/09/24 History iron) tablet (FeroSul) loratadine 10 mg tablet (Claritin) 10 mg PO DAILY PRN Allergic 01/15/23 10/09/24 History Symptoms dicyclomine 10 mg capsule 10 mg PO QID PRN abdominal pain 02/19/24 10/09/24 Rx #120 caps potassium chloride 20 mEq 20 meq PO DAILY #90 tabs 03/02/24 10/09/24 Rx tablet,extended release(part/cryst) (Klor-Con M) cholecalciferol (vitamin D3) 25 25 mcg PO DAILY 06/07/24 10/09/24 History mcg (1,000 unit) tablet diclofenac sodium 1 % topical gel 2 g topical QID PRN Pain 06/07/24 10/09/24 History fluoxetine 20 mg capsule (Prozac) 60 mg PO QAM 06/07/24 10/09/24 History warfarin 5 mg tablet 10 mg PO DAILY #180 tabs 06/09/24 10/09/24 Rx triamcinolone acetonide 0.1 % 1 applic topical BID PRN Skin 07/13/24 10/09/24 History topical cream Irritation warfarin 5 mg tablet 12.5 mg PO QPM 07/13/24 10/09/24 History ondansetron 8 mg disintegrating 8 mg PO DAILY PRN nausea and 08/18/24 10/09/24 Rx tablet vomiting #30 tabs Medical Marijuana 1 tab PO HS PRN Pain/sleep 08/31/24 10/09/24 History albuterol sulfate 90 mcg/actuation 2 puff inhalation DAILY PRN 09/20/24 10/09/24 History aerosol inhaler Shortness Of Breath Or Wheezing amoxicillin 500 mg tablet See Rx Instructions .Route .COMPLEX 09/20/24 10/09/24 History baclofen 10 mg tablet 10 mg PO TID PRN muscle spasm #90 09/21/24 10/09/24 Rx tabs hydrocodone 5 mg-acetaminophen 325 1 tab PO Q8H PRN pain #10 tabs 09/22/24 10/09/24 Rx mg tablet oxycodone 5 mg tablet 5 mg PO Q6H PRN pain #10 tabs 09/26/24 10/09/24 Rx montelukast 10 mg tablet 10 mg PO HS 10/04/24 10/09/24 History (Singulair) rosuvastatin 5 mg tablet (Crestor) 5 mg PO HS 10/04/24 10/09/24 History tamsulosin 0.4 mg capsule (Flomax) 0.4 mg PO QAM 10/04/24 10/09/24 History lorazepam 1 mg tablet 1 mg PO BID #60 tabs 10/05/24 10/09/24 Rx divalproex 250 mg tablet,extended 250 mg PO BID 10/07/24 10/09/24 History release 24 hr (Depakote ER) enoxaparin 100 mg/mL subcutaneous 100 mg subcut Q12H 10/07/24 10/09/24 History syringe (Lovenox) levofloxacin 500 mg tablet 500 mg PO DAILY 7 days #7 tabs 10/07/24 10/09/24 Rx oxycodone-acetaminophen 7.5 mg-325 1 tab PO Q8H PRN pain 3 days #7 10/07/24 10/09/24 Rx mg tablet (Percocet) tabs phenazopyridine 200 mg tablet 200 mg PO Q8H PRN pain #10 tabs 10/07/24 10/09/24 Rx (Pyridium) sumatriptan succinate 100 mg 100 mg PO DAILY PRN Migraine 10/07/24 10/09/24 History tablet (Imitrex) Headache tamsulosin 0.4 mg capsule 0.4 mg PO HS #30 caps 10/07/24 10/09/24 Rx topiramate 100 mg tablet (Topamax) 100 mg PO BID 10/07/24 10/09/24 History doxycycline hyclate 100 mg capsule 100 mg PO BID 7 days #14 caps 10/08/24 10/09/24 Rx fluticasone propionate 50 1 spray intranasal BID #16 grams 10/08/24 10/09/24 Rx mcg/actuation nasal spray,suspension (Flonase Allergy Relief) onabotulinumtoxinA 200 unit 155 unit IM UD 10/09/24 10/09/24 History solution for injection (Botox) Past Med/Surg History Problem List (Updated 10/09/24 @ 09:02 by Princess Montejo MD) Complicated UTI (urinary tract infection) Elevated liver transaminase level Strabismus Nephrolithiasis Acute flank pain (Acute) Hydronephrosis (Acute) Renal colic (Acute) Chronic pain of right knee Elevated liver function tests Family history of colon cancer Radicular pain of thoracic region Chronic migraine without aura, not intractable Mechanical heart valve present (Chronic) AVR 2008 for bicuspid aortic valve 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) Hypercholesteremia (Chronic) Fibromyalgia (Chronic) Chronic anticoagulation (Chronic) Medical History Irritable bowel syndrome Gastritis Migraine Dehydration chronic - "I get easily dehydrated, especially when NPO" as per patient PONV (postoperative nausea and vomiting) History of congenital aortic insufficiency congenital aortic stenosis- s/p AVR Hx of hypercholesterolemia Hx of renal calculi Myofascial pain syndrome of thoracic spine Anxiety and depression Migraine [place] [facility] Chronic anticoagulation Warfarin Dyslipidemia Insomnia History of COVID-19 (2020) no hosp; resolved Fibromyalgia Hx-TIA (transient ischemic attack) ~2005- occasional double vision since; follows w/ [facility] Personal history of gastric bypass Surgical History Mechanical heart valve present AVR 2008 for bicuspid aortic valve History of esophagogastroduodenoscopy (EGD) Hx of colonoscopy (07/2024) Aortic valve replaced (2008) History of lithotripsy S/P total hysterectomy bso S/P cholecystectomy S/P eye surgery S/P D&C (status post dilation and curettage) S/P hernia surgery S/P gastric bypass (2002) fiona en y S/P tubal ligation x2 S/P right heart catheterization multiple, no stents last one prior to valve replacement 2008 Family History Sister Colorectal cancer Father Diabetes Heart disease Hypertension Stroke Mother Diabetes Heart disease Hypertension Aunt Ovarian cancer Denies family history of Prostate cancer Breast cancer Social History Smoking Status: Never smoker Second Hand Exposure: Yes (hx as child); Do You Dip or Chew Tobacco: No; Hx Alcohol Use: Yes (none for a long time) Alcohol Intake Frequency: Monthly or Less Hx Substance Use: Yes (medical card) Prescribed Medications: Marijuana Last Used Substance: Hours (ago) Last Used Substance Other:: uses 5mg every night (oral tablet) Substance Use Type Other:: medical Preferred Language: Montenegrin Communication Ability: Effective Visual Impairment: Limited Hearing Ability: Normal Manifold Builder Required: No Beliefs That Will Affect Care: None marital status: Single Current Living Situation: Alone current occupational status: disabled How many Children do You have: 3 Feels Safe at Home: Yes Childhood Exposure to Second-Hand Smoke: Yes Diet: other and regular Diet Comment: low sugar caffeine: Yes during the past year weight has: remained stable Dental Care, Regularly: Yes Physical Activity Frequency: Daily Seatbelt Use: always Sunscreen Use: Yes Assistive Devices: Glasses Review of Systems Review of Systems: Comprehensive ROS completed and is otherwise negative. Physical Exam Physical Exam: Gen: no acute distress, lying in bed comfortable HEENT: NC/AT, MMM Lungs: nonlabored breathing, CTAB CVS: s1s2nl, RRR Abd: nl bowel sounds, soft, NT / ND : no roe, mild right lower back tenderness Ext: no edema Neuro: AAOx3 Psych: calm cooperative Results & Data Results & Data Vital Signs (Past 12 Hours) Vital Signs Temp Pulse Pulse Resp BP BP Pulse Ox 10/09/24 06:03 62 10/09/24 06:00 60 16 101/44 L 98 10/09/24 05:45 36.7 C 73 18 78/53 L 97 O2 Del Method 10/09/24 06:03 10/09/24 06:00 Room Air 10/09/24 05:45 Room Air PG Care Time/CCT Total # of Minutes Spent Total Time Spent with Patient: Total time spent is greater than 50% in coordination of care (as documented) at patient's floor/unit and/or counseling patient: Coding Level of Care Code 53357 INT INP/OBS CARE 3/75MIN Diagnoses Nephrolithiasis N20.0 Acute flank pain R10.9 Complicated UTI (urinary tract infection) N39.0 Chronic anticoagulation Z79.01 Dyslipidemia E78.5
[2024-10-09 07:56] LABS: INR 2.8 (0.9-1.1); Partial Thromboplastin Time 44 Seconds (21-31); Prothrombin Time 27.8 Seconds (9.0-12.0)
--- NOTE | 2024-10-09 08:59 | Urology Consultation ---
Date of Consultation October 09, 2024 Assessment & Plan (1) Complicated UTI (urinary tract infection): (2) Elevated liver transaminase level: (3) Acute flank pain: (4) Hydronephrosis: (5) Renal colic: (6) Mechanical heart valve present: (7) Fibromyalgia: Plan Patient with likely UTI after procedure. Was dealing with increased pain after stone treatment. Patient has significant history of antibiotic resistance has previously had significant infection in outlying facility after stone treatment. Had developed severe issues with stone and had undergone treatment. Had been covered with procedural antibiotics with preprocedural Cipro. Patient was discharged with doxycycline for coverage of possible bacteria including the urinary system or stone. Patient initially was dealing with pain and discomfort. Had increasing issues with ill feelings over the last day. Patient independently assessed, examined, interviewed, and evaluated. Patient's vitals and labs were all reviewed. Pertinent values in the HPI and plan section. Imaging was reviewed interpreted by myself. Agree with read. Vitals were reviewed. Discussed findings extensively with patient and family. Reviewed with consulting emergency room physicians/team. Hemoglobin is at 9.4. Appears to be stable through the night. White count is not significantly elevated with most recent white count 8.63. Creatinine was 1.16. Other labs were reviewed pertinent values in the HPI or plan section. Ap benton's vitals have remained stable. Is largely dealing with symptoms has not had signs of significant sepsis or serious reaction. Patient's blood pressure 136/54 pulse was 64 respirations 20 temperature 36.7 oxygen saturation 100% on room air. Patient's repeat imaging did not show any significant stones did not show development of hematoma or other concern for a bleed around the kidney. Did not have significant perinephric stranding or inflammation and does not appear to be a possible kidney infection. Patient was covered with broad-spectrum antibiotics. Additionally was given additional medications for pain control. Patient's complicated medical and surgical history was reviewed and summarized above. Patient's surgical, medical, social, and family history were all reviewed with pertinent values as above. Discussed patient's current diagnosis as well as concerns and issues. Reviewed different options moving forward. Discussed potential risks and benefits as well as possible options and concerns. Reviewed potential surgical options and interventions. Discussed potential issues and concerns related to intervention. Risk and benefits were discussed extensively with patient and any available family. Discussed potential risks related to anesthesia. Discussed risks of bleeding infection and injury. Agree with plans for observation with IV antibiotics. Can likely de-escalate after cultures and assessment. Current findings consistent with possible UTI as opposed to development of pyelonephritis. Additionally patient shows no signs of sepsis or severe infection. Recommend coverage with broad-spectrum antibiotics as patient has had significant resistances. Patient is contraindicated for cephalosporins due to a previous history of rash with Keflex. Will await the culture results to be able to de-escalate and possibly find an oral option. Will plan to monitor the patient closely. Initial plan was to attempt to get the stent out in the coming week. Will likely still be able to continue with this plan if patient does continue to improve and good coverage with antibiotics is discovered. Patient complicated medical and surgical history is reviewed and summarized above all imaging was reviewed interpreted by myself. All labs and vitals were reviewed with pertinent values in the HPI or plan section. Patient will likely be admitted to the hospitalist team for observation. History of Present Illness History of Present Illness Emergency room consultation for patient with UTI/Pyelo, discomfort, and ill feelings. Patient had undergone stone treatment. Was sent on doxycycline due to allergies as well as issues with interactions with her multiple meds. Patient does have a history of a mechanical valve and is on chronic anticoagulation with warfarin. Patient had been dealing with pain since stone treatment. Patient developed sudden onset of pain into flank going down and radiating into groin and back in waves comes and goes. Can be severe at times. Discussed and reviewed patient's family history for any history of issues, infections, and disease. Also, discussed patient's medical/surgery history especially related to any history of urinary issues or stone disease. Patient was admitted and is undergoing observation with broad spectrum IV antibiotics. Concern due to possible breakthrough infection or resistance. 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 Has previously been on numerous bouts of antibiotics and does have a known history of significant resistance. Previously with previous stone treatment in an [facility] and [place] patient had a similar series of events with development of significant UTI after procedure. Allergies Allergy/AdvReac Type Severity Reaction Status Date / Time cinnamon Allergy Severe lips and Verified 10/07/24 09:07 throat swelling [place] [employer] Allergy Severe ulcers in Verified 10/07/24 09:07 mouth Horse/Equine Containing Allergy Severe breathing Verified 10/07/24 09:07 Products issues, nasal congestion, coughing, sneezing adhesive Allergy Intermediate Redness of Verified 10/07/24 09:07 Skin Cephalosporins Allergy Intermediate Rash with Verified 10/07/24 09:07 Keflex amitriptyline AdvReac Severe Night Verified 10/07/24 09:07 Terros duloxetine AdvReac Intermediate Gastrointestinal Verified 10/07/24 09:07 Upset gabapentin AdvReac Intermediate Gastrointestinal Verified 10/07/24 09:07 Upset Home Medications Medication Instructions Recorded Confirmed Type calcium crb,[id number] 1 tab PO BID 10/23/22 10/09/24 History [Citracal Plus Bone Density] biotin 5,000 mcg chewable tablet 5,000 mcg PO DAILY 01/15/23 10/09/24 History ferrous sulfate 325 mg (65 mg 325 mg PO QPM 01/15/23 10/09/24 History iron) tablet (FeroSul) loratadine 10 mg tablet (Claritin) 10 mg PO DAILY PRN Allergic 01/15/23 10/09/24 History Symptoms dicyclomine 10 mg capsule 10 mg PO QID PRN abdominal pain 02/19/24 10/09/24 Rx #120 caps potassium chloride 20 mEq 20 meq PO DAILY #90 tabs 03/02/24 10/09/24 Rx tablet,extended release(part/cryst) (Klor-Con M) cholecalciferol (vitamin D3) 25 25 mcg PO DAILY 06/07/24 10/09/24 History mcg (1,000 unit) tablet diclofenac sodium 1 % topical gel 2 g topical QID PRN Pain 06/07/24 10/09/24 History fluoxetine 20 mg capsule (Prozac) 60 mg PO QAM 06/07/24 10/09/24 History warfarin 5 mg tablet 10 mg PO DAILY #180 tabs 06/09/24 10/09/24 Rx triamcinolone acetonide 0.1 % 1 applic topical BID PRN Skin 07/13/24 10/09/24 History topical cream Irritation warfarin 5 mg tablet 12.5 mg PO QPM 07/13/24 10/09/24 History ondansetron 8 mg disintegrating 8 mg PO DAILY PRN nausea and 08/18/24 10/09/24 Rx tablet vomiting #30 tabs Medical Marijuana 1 tab PO HS PRN Pain/sleep 08/31/24 10/09/24 History albuterol sulfate 90 mcg/actuation 2 puff inhalation DAILY PRN 09/20/24 10/09/24 History aerosol inhaler Shortness Of Breath Or Wheezing amoxicillin 500 mg tablet See Rx Instructions .Route .COMPLEX 09/20/24 10/09/24 History baclofen 10 mg tablet 10 mg PO TID PRN muscle spasm #90 09/21/24 10/09/24 Rx tabs hydrocodone 5 mg-acetaminophen 325 1 tab PO Q8H PRN pain #10 tabs 09/22/24 10/09/24 Rx mg tablet oxycodone 5 mg tablet 5 mg PO Q6H PRN pain #10 tabs 09/26/24 10/09/24 Rx montelukast 10 mg tablet 10 mg PO HS 10/04/24 10/09/24 History (Singulair) rosuvastatin 5 mg tablet (Crestor) 5 mg PO HS 10/04/24 10/09/24 History tamsulosin 0.4 mg capsule (Flomax) 0.4 mg PO QAM 10/04/24 10/09/24 History lorazepam 1 mg tablet 1 mg PO BID #60 tabs 10/05/24 10/09/24 Rx divalproex 250 mg tablet,extended 250 mg PO BID 10/07/24 10/09/24 History release 24 hr (Depakote ER) enoxaparin 100 mg/mL subcutaneous 100 mg subcut Q12H 10/07/24 10/09/24 History syringe (Lovenox) levofloxacin 500 mg tablet 500 mg PO DAILY 7 days #7 tabs 10/07/24 10/09/24 Rx oxycodone-acetaminophen 7.5 mg-325 1 tab PO Q8H PRN pain 3 days #7 10/07/24 10/09/24 Rx mg tablet (Percocet) tabs phenazopyridine 200 mg tablet 200 mg PO Q8H PRN pain #10 tabs 10/07/24 10/09/24 Rx (Pyridium) sumatriptan succinate 100 mg 100 mg PO DAILY PRN Migraine 10/07/24 10/09/24 Hist ory tablet (Imitrex) Headache tamsulosin 0.4 mg capsule 0.4 mg PO HS #30 caps 10/07/24 10/09/24 Rx topiramate 100 mg tablet (Topamax) 100 mg PO BID 10/07/24 10/09/24 History doxycycline hyclate 100 mg capsule 100 mg PO BID 7 days #14 caps 10/08/24 10/09/24 Rx fluticasone propionate 50 1 spray intranasal BID #16 grams 10/08/24 10/09/24 Rx mcg/actuation nasal spray,suspension (Flonase Allergy Relief) onabotulinumtoxinA 200 unit 155 unit IM UD 10/09/24 10/09/24 History solution for injection (Botox) Patient History Medical History Irritable bowel syndrome Gastritis Migraine Dehydration chronic - "I get easily dehydrated, especially when NPO" as per patient PONV (postoperative nausea and vomiting) History of congenital aortic insufficiency congenital aortic stenosis- s/p AVR Hx of hypercholesterolemia Hx of renal calculi Myofascial pain syndrome of thoracic spine Anxiety and depression Migraine botox injections - [facility] Chronic anticoagulation Warfarin Dyslipidemia Insomnia History of COVID-19 (2020) no hosp; resolved Fibromyalgia Hx-TIA (transient ischemic attack) ~2005- occasional double vision since; follows w/ [facility] Personal history of gastric bypass Surgical History Mechanical heart valve present AVR 2008 for bicuspid aortic valve History of esophagogastroduodenoscopy (EGD) Hx of colonoscopy (07/2024) Aortic valve replaced (2008) History of lithotripsy S/P total hysterectomy bso S/P cholecystectomy S/P eye surgery S/P D&C (status post dilation and curettage) S/P hernia surgery S/P gastric bypass (2002) fiona en y S/P tubal ligation x2 S/P right heart catheterization multiple, no stents last one prior to valve replacement 2008 Family History Sister Colorectal cancer Father Diabetes Heart disease Hypertension Stroke Mother Diabetes Heart disease Hypertension Aunt Ovarian cancer Denies family history of Prostate cancer Breast cancer Social History Smoking Status: Never smoker Second Hand Exposure: Yes (hx as child); Do You Dip or Chew Tobacco: No; Hx Alcohol Use: Yes Alcohol type: wine Alcohol Intake Frequency: Monthly or Less Hx Substance Use: Yes (medical card) Prescribed Medications: Marijuana Last Used Substance: Hours (ago) Last Used Substance Other:: uses 5mg every night (oral tablet) Substance Use Type Other:: medical Preferred Language: Slovak Communication Ability: Effective Visual Impairment: Limited Hearing Ability: Normal Hypoid Gear Tester Required: No Beliefs That Will Affect Care: None marital status: Single Current Living Situation: Alone current occupational status: disabled How many Children do You have: 3 Other Information That Helps Us Care for You: No Feels Safe at Home: Yes Safety Concerns: Feels Safe At This Time Childhood Exposure to Second-Hand Smoke: Yes Diet: other and regular Diet Comment: low sugar caffeine: Yes during the past year weight has: remained stable Dental Care, Regularly: Yes Physical Activity Frequency: Daily Seatbelt Use: always Sunscreen Use: Yes Assistive Devices: Glasses Review of Systems Review of Systems: All systems reviewed & are unremarkable except as noted in HPI & below Physical Exam Physical Exam: General: Alert and oriented x 3 in no acute distress. HEENT: Normocephalic Atraumatic. Inspection normal. Cranial Nerves 2-12 Grossly intact. Nares are clear. Neck is supple. Normal inspection of face. Normal inspection of neck. Neurologic: No deficits on inspection. Baseline for motor function and sensory. Psychologic: Normal affect. Respiratory: Nonlabored. No use of accessory muscles. No tachypnea or dyspnea. Cardiovascular: No tachycardia Skin: [place] and Dry. No rashes or visible lesions. Extremities: Moving without issues. No motor deficits on inspection Lymphatics: No edema Abdomen: Soft Non-distended.No rebound or guarding. Results & Data Vital Signs (Past 12 Hours) Vital Signs Temp Pulse Pulse Resp BP BP Pulse Ox 10/09/24 07:52 62 16 81/60 L 97 10/09/24 06:03 62 10/09/24 06:00 60 16 101/44 L 98 10/09/24 05:45 36.7 C 73 18 78/53 L 97 O2 Del Method 10/09/24 07:52 Room Air 10/09/24 06:03 10/09/24 06:00 Room Air 10/09/24 05:45 Room Air PG Care Time/CCT Total # of Minutes Spent Total Time Spent with Patient: Total time spent is greater than 50% in coordination of care (as documented) at patient's floor/unit and/or counseling patient: Coding Level of Care Code 34841 INT INP/OBS CARE 75MIN Diagnoses Complicated UTI (urinary tract infection) N39.0 Elevated liver transaminase level R74.01 Acute flank pain R10.9 Hydronephrosis N13.30 Hydronephrosis type: unspecified Renal colic N23 Mechanical heart valve present Z95.2 Fibromyalgia M79.7 (4) Hydronephrosis Hydronephrosis type: unspecified Qualified Code(s): N13.30 - Unspecified hydronephrosis
[2024-10-09] MEDS: PLASMA-LYTE A 1,000 ML IV SCH (09:05)
[2024-10-09] MEDS: DOCUSATE SODIUM/SENNA 50/8.6MG TAB PO SCH (10:03)
[2024-10-09] MEDS: MoRPHine SULFATE 4 MG/ML 1 ML CARP\\VIAL IV STA ×2 (10:03→11:27)
[2024-10-09] MEDS ORDERED: WARFARIN SOD 10 MG TAB PO SCH (11:14)
[2024-10-09] MEDS ORDERED: LORATADINE 10 MG TAB PO PRN (11:14)
[2024-10-09] MEDS: DIVALPROEX EXTENDED RELEASE 250 MG TABCR PO SCH (11:58)
[2024-10-09] MEDS: FLUTICASONE PROPIONATE NA SPR 16 GM BTL SCH (11:58)
[2024-10-09] MEDS: TOPIRAMATE 100 MG TAB PO SCH (11:58)
[2024-10-09] MEDS: PIPERACILLIN/TAZOBACTAM 4.5 GM/100 ML BAG IV SCH (12:00)
[2024-10-09] MEDS: ENOXAPARIN 100 MG/1ML SYR SQ SCH (13:15)
[2024-10-09] MEDS: HYDROmorphone INJ 0.5 MG/0.5 ML SYR IV STA (13:30)
[2024-10-09] MEDS: WARFARIN SOD 10 MG TAB PO SCH (16:11)
[2024-10-09] MEDS: PLASMA-LYTE A 1,000 ML IV ONE ×2 (16:11→19:00)
[2024-10-09] MEDS ORDERED: Nursing to Pharmacy Communication SCH (19:00)
[2024-10-09] MEDS ORDERED: WARFARIN SOD 2.5 MG TAB PO SCH (21:00)
[2024-10-09] MEDS: MoRPHine SULFATE 2 MG/ML CARP IV PRN (21:01)
[2024-10-09] MEDS: ROSUVASTATIN CALCIUM 5 MG TAB PO SCH (21:03)
[2024-10-09] MEDS: TAMSULOSIN HCL 0.4 MG CAP PO SCH (21:03)
[2024-10-09] MEDS: FERROUS SULFATE 325 MG TAB PO SCH (21:03)
[2024-10-09] MEDS: MONTELUKAST SODIUM 10 MG TABLET PO SCH (21:06)
[2024-10-09] MEDS: LORazepam 1 MG TAB PO SCH (22:12)
[2024-10-10 01:50] LABS: Hematocrit (blood only) 23.0 % (37.0-47.0); Hemoglobin 7.4 g/dl (12.0-16.0)
[2024-10-10 06:47] LABS: Hematocrit (blood only) 20.6 % (37.0-47.0); Hemoglobin 6.8 g/dl (12.0-16.0); Mean Corpuscular Hemoglobin 32.1 pg (25.0-34.0); Mean Corpuscular Volume 97.2 fL (80.0-100.0); Platelet Count 155 K/uL (130-400); RDW Standard Deviation 48.3 fL (36.4-46.3); Red Blood Count 2.12 M/uL (4.20-5.40); White Blood Count 6.22 K/ul (4.8-10.8)
[2024-10-10] MEDS ORDERED: SODIUM CHLORIDE 0.9% 100 ML IV PRN ×2 (06:50→07:01)
[2024-10-10 07:19] LABS: Immature Granulocytes # (auto) 0.02 K/uL (0.01-0.20); Immature Granulocytes % (auto) 0.3 %; RBC Morphology Unremarkable
[2024-10-10 07:33] LABS: Prothrombin Time 52.3 Seconds (9.0-12.0)
[2024-10-10 07:38] LABS: Anion Gap 5.0 (3-11); Blood Urea Nitrogen 20.0 mg/dl (6-23); Calcium 8.1 mg/dl (8.6-10.3); Carbon Dioxide 26.0 mmol/L (21-32); Chloride 109.0 mmol/L (98-107); Creatinine Clr Calc Pharmacy 50.4 ml/min; Glucose 95.0 mg/dl (70-99(Fasting)); INR 5.6 (0.9-1.1); Magnesium 2.0 mg/dl (1.7-2.4); Potassium 3.9 mmol/L (3.5-5.1); Sodium 140.0 mmol/L (136-145)
--- NOTE | 2024-10-10 11:06 | Urology Progress Note ---
Date of Service October 10, 2024 Assessment & Plan (1) Complicated UTI (urinary tract infection): (2) Elevated liver transaminase level: (3) Acute flank pain: (4) Hydronephrosis: (5) Renal colic: (6) Mechanical heart valve present: (7) Fibromyalgia: Plan Patient with likely UTI after procedure developed issues with retention overnight and significant hematuria which increased drastically and likely contributed to the obstruction. Patient would been started on a broad-spectrum antibiotic due to history of significant resistance. Was dealing with increased pain after stone treatment. Retention issues may be multifactorial. May also have developed clot retention though difficult to determine. Patient had been irrigated overnight but developed significant obstruction yet again this morning. The catheter was found to be completely blocked. On my assessment it was found to be no longer functional and patient consented to have the catheter exchanged. Procedure note: Catheter exchange and irrigation of clot. Patient was prepped and draped in normal sterile fashion. A 22 [place] three-way catheter was placed after the former catheter was removed. The balloon was elevated. Initially approximately 600 cc of bloody urine was appreciated. This then once again stopped. Irrigation was attempted. Multiple times it was attempted to clear the drain. There did appear to be some sort of debris caught at the end of the catheter. The catheter was removed and a small firm piece of clot material was noted to be in the lumen. This was able to be flushed out and the catheter was then replaced. With some manipulation and repositioning of the catheter good flow was achieved. Extensive irrigation was then completed. The urine was able to be cleared to a light pink color. CBI was then initiated. With continuous bladder irrigation the urine cleared to a pink-tinged urine/irrigant. The catheter irrigated easily at this point. Both channels were found to be patent without major issue. The catheter was then secured and the continuous bladder irrigation was set to drain. Patient tolerated this procedure without major issue. Significant relief however continued spasms and discomfort in the pelvis. Procedure completed by myself. Discussed extensively options moving forward. Will make the patient n.p.o. at midnight in case patient develops more significant bleed. Has been tolerating transfusion thus far. Has not had considerable fevers. Patient may also potentially need to have stent removed however did discuss risk of potential obstruction with blood clot if patient is having upper tract issues. Patient's INR had been found to be severely elevated above therapeutic levels. Additionally had been on Lovenox during the bridging period. May be contributing to the severity of the hematuria. Flomax and Ditropan were ordered for symptom control Additionally can consider other options if these are not effective. Will plan to continue to monitor patient closely. Will monitor vitals and blood work. If patient does develop severe worsening issues that would require more urgent or emergent intervention consider OR for clot evacuation and possible stent removal or exchange. Will plan to make patient n.p.o. at midnight in anticipation if issues become worse overnight into tomorrow. Otherwise we will plan for continuous bladder irrigation close monitoring and continued utilization of antibiotics. Current cultures of the blood showed no growth. Are waiting for cultures to determine options for antibiotic coverage. Admission and Anticipated Discharge Date Admission Date: October 09, 2024 Subjective Patient with significant gross hematuria that developed overnight with large amount of clot. Patient had presented postop from stone treatment and stent placement for obstruction issues. Had developed worsening urinary symptoms and flank pain found to have possible UTI. Previous cultures have been pansensitive however patient was placed on broad-spectrum antibiotics due to significant history of resistant infections. Patient also was given supportive care and observed. Overnight patient developed worsening issues with hematuria. Her INR was found to be severely elevated above therapeutic level. Found to have a significant drop in the hemoglobin. Patient had 2 units of packed red blood cells initiated and has been monitored. Had undergone irrigation overnight for the clot and blood. Had severe increase in pressure and issues this morning. On evaluation the catheter did not appear to be draining. Patient consented to moving forward with catheter exchange and initiating of continuous bladder irrigation. Please see the plan section for the procedure and the irrigation. After finally having good placement and flow and initiating continuous irrigation after clearing the urine patient did have some significant relief but was still dealing with some significant spasms in the bladder. No new nausea or vomiting. No fevers Review of Systems Review of Systems: All systems reviewed & are unremarkable except as noted in HPI & below Physical Exam Physical Exam: General: Anxious in significant discomfort. Significant improvement after catheter exchange and irrigation. HEENT: Normocephalic Atraumatic. Inspection normal. Cranial Nerves 2-12 Grossly intact. Nares are clear. Neck is supple. Normal inspection of face. Normal inspection of neck. Neurologic: No deficits on inspection. Baseline for motor function and sensory. Psychologic: Normal affect. Respiratory: Nonlabored. No use of accessory muscles. No tachypnea or dyspnea. Cardiovascular: No tachycardia Skin: [place] and Dry. No rashes or visible lesions. Extremities: Moving without issues. No motor deficits on inspection Lymphatics: No edema Abdomen: Soft Non-distended after irrigation. Tender and distended on initial exam. No rebound or guarding. : 3-way 22 Fr Hematuria catheter in place draining light pink tinge urine/irrigation Results & Data Vital Signs (Past 12 Hours) Vital Signs Temp Pulse Pulse Resp BP BP BP 10/10/24 10:44 36.6 C 71 18 122/72 10/10/24 10:36 60 10/10/24 10:14 36.6 C 68 16 108/64 10/10/24 09:59 36.8 C 61 18 93/50 L 10/10/24 09:34 36.8 C 61 18 91/56 L 10/10/24 08:08 36.8 C 57 L 16 91/60 L 10/10/24 06:10 89/59 L 10/10/24 03:39 37.3 C 62 18 94/54 L 10/10/24 00:54 100/62 119/68 10/09/24 23:29 59 L 10/09/24 23:10 94/56 L Pulse Ox O2 Del Method 10/10/24 10:44 99 10/10/24 10:36 10/10/24 10:14 99 10/10/24 09:59 10/10/24 09:34 10/10/24 08:08 97 Room Air 10/10/24 06:10 10/10/24 03:39 94 Room Air 10/10/24 00:54 10/09/24 23:29 10/09/24 23:10 PG Care Time/CCT Total # of Minutes Spent Total Time Spent with Patient: Total time spent is greater than 50% in coordination of care (as documented) at patient's floor/unit and/or counseling patient: Coding Level of Care Code 65922 SUB INP/OBS CARE 3/50MIN Diagnoses Complicated UTI (urinary tract infection) N39.0 Elevated liver transaminase level R74.01 Acute flank pain R10.9 Hydronephrosis N13.30 Hydronephrosis type: unspecified Renal colic N23 Mechanical heart valve present Z95.2 Fibromyalgia M79.7 (4) Hydronephrosis Hydronephrosis type: unspecified Qualified Code(s): N13.30 - Unspecified hydronephrosis
[2024-10-10] MEDS: TAMSULOSIN HCL 0.4 MG CAP PO ONE (11:27)
[2024-10-10] MEDS: MoRPHine SULFATE 2 MG/ML CARP IV PRN (17:32)
[2024-10-10 17:34] LABS: Hematocrit (blood only) 26.9 % (37.0-47.0); Hemoglobin 9.0 g/dl (12.0-16.0)
[2024-10-10] MEDS: ONDANSETRON 4 MG OD TAB PO PRN (17:42)
--- NOTE | 2024-10-10 17:58 | Hospitalist Progress Note ---
Date of Service October 10, 2024 Assessment & Plan (1) Nephrolithiasis: (2) Acute flank pain: (3) Complicated UTI (urinary tract infection): (4) Chronic anticoagulation: (5) Dyslipidemia: Plan #Complicated UTI #Hematuria - CT abd / pelvis reviewed - cover broadly with zosyn - IVF - UA showing pyuria, hematuria, + nitrite - BCx / UCx NGTD - urology on boards, recs appreciated - pain control with oxycodone, morphine - cont CBI #Mild hypotension - cont IVF and monitor closely #Anemia - hgb checked after fluids, suspecting a combination of loss and dilution - monitor closely #Mechanical AVR with hx of thrombus - pt reports INR goal: 3.5 - 4.5 - cont coumadin / lovenox bridging - monitor INR #Supratherapeutic INR - goal INR is 3.5-4.5 , currently 5.6 - d/c enoxaparin. hold warfarin - will allow INR to trend down on its own #Fibromyalgia #Anxiety/depression #Migraines - cont depakote, fluoxetine #Constipation - Senna S 1 tab BID - miralax prn #HLD - cont statin #DVT ppx: therapeutic INR #Code status: full code #Dispo- pending improvement of hematuria 10/10: pt's at bedside Admission and Anticipated Discharge Date Admission Date: October 09, 2024 Subjective Overnight: pt was found to have Hgb of 6.8. She also had urinary retention overnight requiring roe. She received 2 units PRBC This morning, she was evaluated by Urology and CBI was started. This caused her to have significant relief in her pain. Review of Systems Review of Systems: Comprehensive ROS completed and is otherwise negative. Physical Exam Physical Exam: Gen: no acute distress, lying in bed comfortable HEENT: NC/AT, MMM Lungs: nonlabored breathing, CTAB CVS: s1s2nl, RRR Abd: nl bowel sounds, soft, NT / ND : no roe, mild right lower back tenderness Ext: no edema Neuro: AAOx3 Psych: calm cooperative Results & Data Results & Data Vital Signs (Past 12 Hours) Vital Signs Temp Pulse Pulse Resp BP BP Pulse Ox 10/10/24 16:17 36.5 C 61 20 108/48 L 96 10/10/24 15:46 36.7 C 64 16 105/57 L 95 10/10/24 14:13 36.6 C 64 16 109/72 99 10/10/24 13:43 36.4 C L 64 16 104/49 L 99 10/10/24 13:28 36.8 C 59 L 18 99/63 L 97 10/10/24 13:13 36.6 C 61 16 96/61 L 96 10/10/24 13:09 36.6 C 61 16 96/61 L 96 10/10/24 13:02 63 10/10/24 12:05 36.8 C 74 18 94/64 L 100 10/10/24 11:44 36.3 C L 65 18 103/58 L 94 10/10/24 10:44 36.6 C 71 18 122/72 99 10/10/24 10:36 60 10/10/24 10:14 36.6 C 68 16 108/64 99 10/10/24 09:59 36.8 C 61 18 93/50 L 10/10/24 09:34 36.8 C 61 18 91/56 L 10/10/24 08:08 36.8 C 57 L 16 91/60 L 97 10/10/24 06:10 89/59 L O2 Del Method 10/10/24 16:17 Room Air 10/10/24 15:46 10/10/24 14:13 10/10/24 13:43 10/10/24 13:28 10/10/24 13:13 10/10/24 13:09 10/10/24 13:02 10/10/24 12:05 Room Air 10/10/24 11:44 10/10/24 10:44 10/10/24 10:36 10/10/24 10:14 10/10/24 09:59 10/10/24 09:34 10/10/24 08:08 Room Air 10/10/24 06:10 PG Care Time/CCT Total # of Minutes Spent Total Time Spent with Patient: Total time spent is greater than 50% in coordination of care (as documented) at patient's floor/unit and/or counseling patient: Coding Level of Care Code 95106 SUB INP/OBS CARE 3/50MIN Diagnoses Nephrolithiasis N20.0 Acute flank pain R10.9 Complicated UTI (urinary tract infection) N39.0 Chronic anticoagulation Z79.01 Dyslipidemia E78.5
[2024-10-10] MEDS: POLYETHYLENE (MIRALAX) 17 GM PACK PO PRN (18:39)
[2024-10-10] MEDS: TAMSULOSIN HCL 0.4 MG CAP PO SCH (21:42)
[2024-10-11] MEDS: ALBUTEROL HFA 8 GM INHALER INH PRN (00:10)
[2024-10-11 00:29] LABS: Hematocrit (blood only) 26.1 % (37.0-47.0); Hemoglobin 8.5 g/dl (12.0-16.0)
[2024-10-11 08:08] LABS: Hematocrit (blood only) 24.1 % (37.0-47.0); Hemoglobin 8.0 g/dl (12.0-16.0); Mean Corpuscular Hemoglobin 29.9 pg (25.0-34.0); Mean Corpuscular Volume 89.9 fL (80.0-100.0); Platelet Count 130 K/uL (130-400); RDW Standard Deviation 56.8 fL (36.4-46.3); Red Blood Count 2.68 M/uL (4.20-5.40); White Blood Count 7.66 K/ul (4.8-10.8)
[2024-10-11 08:29] LABS: Anion Gap 4.0 (3-11); Blood Urea Nitrogen 19.0 mg/dl (6-23); Calcium 7.9 mg/dl (8.6-10.3); Carbon Dioxide 27.0 mmol/L (21-32); Chloride 108.0 mmol/L (98-107); Creatinine Clr Calc Pharmacy 38.9 ml/min; Glucose 99.0 mg/dl (70-99(Fasting)); Magnesium 2.1 mg/dl (1.7-2.4); Potassium 3.7 mmol/L (3.5-5.1); Sodium 139.0 mmol/L (136-145)
[2024-10-11 08:42] LABS: INR 2.9 (0.9-1.1); Prothrombin Time 28.2 Seconds (9.0-12.0)
[2024-10-11 13:02] LABS: Hematocrit (blood only) 23.1 % (37.0-47.0); Hemoglobin 7.6 g/dl (12.0-16.0)
--- NOTE | 2024-10-11 13:39 | Urology Progress Note ---
Date of Service October 11, 2024 Assessment & Plan (1) Complicated UTI (urinary tract infection): (2) Elevated liver transaminase level: (3) Mechanical heart valve present: (4) Fibromyalgia: (5) Chronic anticoagulation: (6) Sepsis: (7) Gross hematuria: (8) Acute blood loss anemia: (9) Acute flank pain: (10) Complicated urinary tract infection: Plan Patient with significant gross hematuria which developed secondary to likely overdistention and retention because likely secondary to likely UTI. Prior to stone treatment patient had been having significant hematuria secondary to stone with severe pain. Initially right after the procedure patient's pain was manageable but developed significant issues with UTI. Is now dealing with significant gross hematuria with significant bouts of pain and discomfort on the right flank. Patient's imaging from 2 days prior had shown no active stones showed no sign of perinephric hematoma or other major intra-abdominal bleed. A three-way catheter was placed yesterday and irrigation initiated. Hand/manual irrigation by myself only had a very small amount of clot. And urine did clear to a light pink. Has been on and off between light pink and light red through most of the day today and yesterday. After I left seeing the patient per nursing the urine did get red again. Typically gets darker and more red with movement or activity. Patient's hemoglobin has continued to go down with the INR stabilizing. Most recent INR came back at 2.9. Creatinine is mildly elevated 1.53 and white count at 7.66. Hemoglobin from earlier today was 8.0 after 2 units. Recheck H&H was ordered to assess to see if the hemoglobin dropped further. Patient would been started on a broad-spectrum antibiotic due to history of significant resistance. Still awaiting cultures to de-escalate. If no growth may be able to de-escalate over time. Reviewed options moving forward. Patient will remain n.p.o. until CT scan is back and has been determined there is no sign of major retroperitoneal bleed perinephric hematoma bladder issue or hematoma or other major change that would necessitate surgical intervention. If no major issue was discovered can likely start diet. Would recommend continued hydration and monitoring. Will likely need to monitor and will potentially need transfusion with hemoglobin continuing to drop. INR is now back to 2.9. No longer hypertherapeutic. Will await results of lab work and imaging. Patient in guarded condition secondary to potential active bleed. Will await results and discuss plans moving forward once available. Admission and Anticipated Discharge Date Admission Date: October 09, 2024 Subjective Patient with significant gross hematuria while on chronic anticoagulation for mechanical valve. Patient had stone treatment which initially had some mild bleeding. Patient had significant bleeding prior to the stone treatment secondary to the stone itself. Patient had initially done well after the stone treatment except had significant pain with stent. Subsequently developed severe UTI issues was started on broad-spectrum antibiotics and covered. Patient subsequently developed issues with worsening bleeding and flank pain. Developed retention which caused overdistention of the bladder which caused a more significant gross hematuria development. Patient had presented postop from stone treatment and stent placement for obstruction issues. Patient had irrigation of clot yesterday with a small amount of clot received and red urine which was able to be irrigated down to light pink. Patient was initiated on CBI. Had been tolerating has had some minor increase in darkness and redness of urine with movement and activity. Otherwise has been tolerating catheter. Multiple medications for symptom control were prescribed yesterday. Patient's hemoglobin continues to go down even after 2 units. Patient's INR has improved significantly and is no longer hypertherapeutic. Patient was having borderline hypotension without major symptoms other than significant flank pain. Medications for pain control and management have significantly helped. Is currently n.p.o. due to hemoglobin decreasing again. Will await stat CT scan prior to finalizing plans for diet. No new nausea or vomiting. No fevers Review of Systems Review of Systems: All systems reviewed & are unremarkable except as noted in HPI & below Physical Exam Physical Exam: General: Anxious in significant discomfort. HEENT: Normocephalic Atraumatic. Inspection normal. Cranial Nerves 2-12 G rossly intact. Nares are clear. Neck is supple. Normal inspection of face. Normal inspection of neck. Neurologic: No deficits on inspection. Baseline for motor function and sensory. Psychologic: Normal affect. Respiratory: Nonlabored. No use of accessory muscles. No tachypnea or dyspnea. Cardiovascular: No tachycardia Skin: [place] and Dry. No rashes or visible lesions. Extremities: Moving without issues. No motor deficits on inspection Lymphatics: No edema Abdomen: Mildly tender and distended on exam. No rebound or guarding. : 3-way 22 Fr Hematuria catheter in place draining clear urine/irrigation Nursing did alert that after I left the urine went back to a red color Results & Data Vital Signs (Past 12 Hours) Vital Signs Temp Pulse Pulse Resp BP BP Pulse Ox 10/11/24 11:31 36.6 C 64 17 91/55 L 97 10/11/24 07:19 61 10/11/24 07:05 37 C 60 16 96/60 L 96 10/11/24 04:01 96/59 L 10/11/24 03:40 36.9 C 66 18 111/58 L 96 O2 Del Method 10/11/24 11:31 Room Air 10/11/24 07:19 10/11/24 07:05 Room Air 10/11/24 04:01 10/11/24 03:40 Room Air PG Care Time/CCT Total # of Minutes Spent Total Time Spent with Patient: Total time spent is greater than 50% in coordination of care (as documented) at patient's floor/unit and/or counseling patient: Coding Level of Care Code 39153 SUB INP/OBS CARE 3/50MIN Diagnoses Complicated UTI (urinary tract infection) N39.0 Elevated liver transaminase level R74.01 Mechanical heart valve present Z95.2 Fibromyalgia M79.7 Chronic anticoagulation Z79.01 Sepsis A41.9 Gross hematuria R31.0 Acute blood loss anemia D62 Acute flank pain R10.9
--- NOTE | 2024-10-11 14:22 | CT Scan Report ---
EXAM: CT Abdomen and Pelvis Without Intravenous Contrast INDICATION: Stones TECHNIQUE: Axial computed tomography images of the abdomen and pelvis without intravenous contrast. Sagittal and coronal reformatted images were created and reviewed. This CT exam was performed using one or more of the following dose reduction techniques: automated exposure control, adjustment of the mA and/or kV according to patient size, and/or use of iterative reconstruction technique. COMPARISON: 10/09/2024 FINDINGS: Limitations: None. Lung bases: Stable scarring in the lung bases. Pleural space: No visualized pleural effusion or pneumothorax. Heart: No abnormality noted. Mediastinum: No abnormality noted. ABDOMEN: Liver: Lack of intravenous contrast limits detection of some masses. No abnormality noted. Gallbladder and bile ducts: Cholecystectomy. No ductal dilation or stone noted. Pancreas: No pancreatic mass, calcification, inflammation or ductal dilation noted. Spleen: Splenic granulomata noted. Adrenals: No significant abnormality noted. Kidneys and ureters: Right ureteral stent in good position with increased mild hydronephrosis and hyperdensity of right collecting system contents typical of hematuria. No stones. Heterogeneous appearance of the kidney is less well-defined on unenhanced study. No urinary gas. Stomach and bowel: Gastric bypass changes noted with well-defined gastric and small bowel anastomotic staple lines. There is prominent fluid and formed stool throughout the colon. Prominent fluid throughout small bowel loops. No obstructing point noted. PELVIS: Appendix: Appendix not defined. No pericecal inflammation. Bladder: Catheter balloon inflated in the bladder which is collapsed and cannot be optimally assessed. No stones. Reproductive: No abnormalities noted. ABDOMEN and PELVIS: Intraperitoneal space: No free air. No significant fluid collection. Bones/joints: No acute changes. Soft tissues: Generalized body wall edema noted. Vasculature: No abdominal aortic aneurysm. Lymph nodes: No pathologically enlarged lymph nodes. IMPRESSION: 1. Increased right hydronephrosis with stable right ureteral stent. Prominent density of the right collecting system contents typical of hematuria. No visible stones. 2. Ileus. ACT 112: N/A Electronically signed by Ruthy Telles 10-11-2024 2:21 PM
[2024-10-11] MEDS ORDERED: SODIUM CHLORIDE 0.9% 100 ML IV PRN (14:31)
[2024-10-11] MEDS: WARFARIN SOD 2.5 MG TAB PO SCH (17:09)
--- NOTE | 2024-10-11 17:31 | Hospitalist Progress Note ---
Date of Service October 11, 2024 Assessment & Plan (1) Nephrolithiasis: (2) Acute flank pain: (3) Complicated UTI (urinary tract infection): (4) Chronic anticoagulation: (5) Dyslipidemia: Plan #Complicated UTI #Hematuria - CT abd / pelvis reviewed - cover broadly with zosyn - IVF - UA showing pyuria, hematuria, + nitrite - BCx / UCx NGTD - urology on boards, recs appreciated - pain control with oxycodone, morphine - cont CBI #Ileus - no obstruction noted on imaging - cont IVF, NPO - ambulate as tolerated - if vomiting, then NGT - if worsening, then will request gen surge eval - ok to continue bisacodyl suppository to help evacuvate the colon #Mild hypotension - cont IVF and monitor closely - pt is also on tamsulosin #Anemia - hgb checked after fluids, suspecting a combination of loss and dilution - monitor closely - s/p 2 units of blood with improvement of Hgb, but trending down given ongoing hematuria. will give additional 1 unit PRBC #Mechanical AVR with hx of thrombus - pt reports INR goal: 3.5 - 4.5 - wafarin to be adjusted to INR - monitor INR #Supratherapeutic INR- resolved - goal INR is 3.5-4.5, peaked to 5.6 - enoxaparin d/c-ed - cont warfarin 2.5mg #Fibromyalgia #Anxiety/depression #Migraines - cont depakote, fluoxetine #Constipation - Senna S 1 tab BID - miralax prn #HLD - cont statin #DVT ppx: therapeutic INR #Code status: full code #Dispo- pending improvement of hematuria 10/10: pt's at bedside Admission and Anticipated Discharge Date Admission Date: October 09, 2024 Subjective Pt is currently on CBI Continuing to have pain in her abdomen She is also noted to have ileus on the CT scan Review of Systems Review of Systems: Comprehensive ROS completed and is otherwise negative. Physical Exam Physical Exam: Gen: no acute distress, sitting in chair comfortable HEENT: NC/AT, MMM Lungs: nonlabored breathing, CTAB CVS: s1s2nl, RRR Abd: bowel sounds (present but not active), soft, NT / ND : no roe, mild right lower back tenderness Ext: no edema Neuro: AAOx3 Psych: calm cooperative Results & Data Results & Data Vital Signs (Past 12 Hours) Vital Signs Temp Pulse Pulse Resp BP BP BP 10/11/24 16:56 36.7 C 57 L 14 93/58 L 10/11/24 15:56 36.7 C 61 18 91/56 L 10/11/24 15:26 36.6 C 60 17 94/59 L 10/11/24 15:11 36.5 C 56 L 16 90/57 L 10/11/24 14:54 36.5 C 60 19 102/56 L 10/11/24 11:31 36.6 C 64 17 91/55 L 10/11/24 07:19 61 10/11/24 07:05 37 C 60 16 96/60 L Pulse Ox O2 Del Method 10/11/24 16:56 96 10/11/24 15:56 96 10/11/24 15:26 100 10/11/24 15:11 99 10/11/24 14:54 99 10/11/24 11:31 97 Room Air 10/11/24 07:19 10/11/24 07:05 96 Room Air PG Care Time/CCT Total # of Minutes Spent Total Time Spent with Patient: Total time spent is greater than 50% in coordination of care (as documented) at patient's floor/unit and/or counseling patient: Coding Level of Care Code 28308 SUB INP/OBS CARE 3/50MIN Diagnoses Nephrolithiasis N20.0 Acute flank pain R10.9 Complicated UTI (urinary tract infection) N39.0 Chronic anticoagulation Z79.01 Dyslipidemia E78.5
[2024-10-11] MEDS: MAGNESIUM CITRATE 296 ML/BTL PO STA (17:47)
[2024-10-11] MEDS: WARFARIN SOD 2.5 MG TAB PO ONE (18:06)
[2024-10-11 18:45] LABS: Hematocrit (blood only) 30.5 % (37.0-47.0); Hemoglobin 10.2 g/dl (12.0-16.0)
[2024-10-11] MEDS: VALPROATE SOD 250 MG in DEXTROSE 5% 50 ML IV SCH (21:56)
[2024-10-12 04:19] LABS: Anion Gap 5.0 (3-11); Blood Urea Nitrogen 17.0 mg/dl (6-23); Calcium 7.9 mg/dl (8.6-10.3); Carbon Dioxide 25.0 mmol/L (21-32); Chloride 112.0 mmol/L (98-107); Creatinine Clr Calc Pharmacy 46.9 ml/min; Glucose 86.0 mg/dl (70-99(Fasting)); Magnesium 2.1 mg/dl (1.7-2.4); Potassium 3.8 mmol/L (3.5-5.1); Sodium 142.0 mmol/L (136-145)
[2024-10-12 04:34] LABS: INR 1.9 (0.9-1.1); Prothrombin Time 19.2 Seconds (9.0-12.0)
[2024-10-12 06:22] LABS: Hematocrit (blood only) 24.7 % (37.0-47.0); Hemoglobin 8.2 g/dl (12.0-16.0); Mean Corpuscular Hemoglobin 30.0 pg (25.0-34.0); Mean Corpuscular Volume 90.5 fL (80.0-100.0); Platelet Count 131 K/uL (130-400); RDW Standard Deviation 54.6 fL (36.4-46.3); Red Blood Count 2.73 M/uL (4.20-5.40); White Blood Count 6.88 K/ul (4.8-10.8)
[2024-10-12] MEDS ORDERED: ENOXAPARIN 1 MG/KG SC SCH (07:45)
[2024-10-12] MEDS: ENOXAPARIN 100 MG/1ML SYR SQ SCH (09:09)
--- NOTE | 2024-10-12 12:39 | Urology Progress Note ---
Date of Service October 12, 2024 Assessment & Plan (1) Gross hematuria: (2) Complicated UTI (urinary tract infection): Plan Pt afebrile, BP 92/43, HR 60. Labs today -WBCs 6.88, Hemoglobin 8.2, Creatinine 1.27. Urine culture 10/09 negative. Blood cultures 10/09 prelim no growth x [address] abd pelvis 10/11 showed the right ureteral stent in good position with increased mild hydronephrosis and hyperdensity of the right collecting system likely hematuria/clot, no stones, no urinary gas, and findings of ileus. Ayala intact and draining pink tinged urine with CBI on moderate rate. Maintain Ayala catheter and continue CBI. Can titrate as needed. Ideally will try to wean off CBI as able. Okay to hand irrigate as needed for clots, retention, suprapubic pain. Continue supportive care and antibiotic therapy. Continue to trend labs. Urology will follow along, please contact us with any questions or concerns. Admission and Anticipated Discharge Date Admission Date: October 09, 2024 Subjective Pt seen at bedside today. No acute distress. Family at bedside. Ayala draining pink tinged urine with CBI on moderate rate. Review of Systems Constitutional: as per Subjective / HPI Genitourinary: as per Subjective / HPI Physical Exam Constitutional: no acute distress Respiratory: no respiratory distress and no labored breathing Neurologic: moves all extremities and awake Psychiatric: A+Ox3, euthymic affect Genitourinary: Ayala intact w/CBI Results & Data Vital Signs (Past 12 Hours) Vital Signs Temp Pulse Resp BP BP Pulse Ox O2 Del Method 10/12/24 12:00 36.6 C 60 16 92/43 L 95 Room Air 10/12/24 08:00 36.7 C 53 L 18 99/52 L 96 Room Air 10/12/24 03:58 36.9 C 53 L 18 94/49 L 96 Room Air PG Care Time/CCT Total # of Minutes Spent Total Time Spent with Patient: Total time spent is greater than 50% in coordination of care (as documented) at patient's floor/unit and/or counseling patient: Coding Level of Care Code 64555 SUB INP/OBS CARE 2/35MIN Diagnoses Gross hematuria R31.0 Complicated UTI (urinary tract infection) N39.0
--- NOTE | 2024-10-12 14:34 | Hospitalist Progress Note ---
Date of Service October 12, 2024 Assessment & Plan (1) Nephrolithiasis: (2) Acute flank pain: (3) Complicated UTI (urinary tract infection): (4) Chronic anticoagulation: (5) Dyslipidemia: Plan #Complicated UTI #Hematuria - CT abd / pelvis reviewed - cover broadly with zosyn - IVF - UA showing pyuria, hematuria, + nitrite - BCx / UCx NGTD - urology on boards, recs appreciated - pain control with oxycodone, morphine - cont CBI #Ileus - no obstruction noted on imaging - cont IVF, NPO - ambulate as tolerated - if vomiting, then NGT - if worsening, then will request gen surge eval - ok to continue bisacodyl suppository to help evacuate the colon - prn enema #Mild hypotension - cont IVF and monitor closely - pt is also on tamsulosin #Anemia - hgb checked after fluids, suspecting a combination of loss and dilution - monitor closely - s/p 2 units of blood with improvement of Hgb, but trending down given ongoing hematuria. will give additional 1 unit PRBC #Mechanical AVR with hx of thrombus - pt reports INR goal: 3.5 - 4.5 - wafarin to be adjusted to INR - monitor INR #Subtherapeutic INR- - goal INR is 3.5-4.5, peaked to 5.6 - enoxaparin reordered - cont warfarin 10-12.5mg as ordered #Fibromyalgia #Anxiety/depression #Migraines - cont depakote, fluoxetine #Constipation - Senna S 1 tab BID - miralax prn #HLD - cont statin #DVT ppx: therapeutic INR #Code status: full code #Dispo- pending improvement of hematuria as well as ileus 10/10: pt's at bedside 10/12: at bedside Admission and Anticipated Discharge Date Admission Date: October 09, 2024 Subjective She is passing gas and had some small stool, but nothing significant Review of Systems Review of Systems: Comprehensive ROS completed and is otherwise negative. Physical Exam Physical Exam: Gen: no acute distress, lying in bed comfortable HEENT: NC/AT, MMM Lungs: nonlabored breathing, CTAB CVS: s1s2nl, RRR Abd: normal bowel sounds today, soft, NT / ND : no roe, mild right lower back tenderness Ext: no edema Neuro: AAOx3 Psych: calm cooperative Results & Data Results & Data Vital Signs (Past 12 Hours) Vital Signs Temp Pulse Pulse Resp BP BP Pulse Ox 10/12/24 12:00 36.6 C 60 16 92/43 L 95 10/12/24 08:00 36.7 C 53 L 18 99/52 L 96 10/12/24 07:00 62 10/12/24 03:58 36.9 C 53 L 18 94/49 L 96 O2 Del Method 10/12/24 12:00 Room Air 10/12/24 08:00 Room Air 10/12/24 07:00 10/12/24 03:58 Room Air PG Care Time/CCT Total # of Minutes Spent Total Time Spent with Patient: Total time spent is greater than 50% in coordination of care (as documented) at patient's floor/unit and/or counseling patient: Coding Level of Care Code 31136 SUB INP/OBS CARE 2/35MIN Diagnoses Nephrolithiasis N20.0 Acute flank pain R10.9 Complicated UTI (urinary tract infection) N39.0 Chronic anticoagulation Z79.01 Dyslipidemia E78.5
[2024-10-12 19:36] LABS: Hematocrit (blood only) 28.2 % (37.0-47.0); Hemoglobin 9.3 g/dl (12.0-16.0)
[2024-10-13 07:50] LABS: Hematocrit (blood only) 25.4 % (37.0-47.0); Hemoglobin 8.2 g/dl (12.0-16.0)
[2024-10-13] MEDS: DOCUSATE SODIUM/SENNA 50/8.6MG TAB PO SCH (08:01)
[2024-10-13 08:05] LABS: Anion Gap 8.0 (3-11); Blood Urea Nitrogen 19.0 mg/dl (6-23); Calcium 8.0 mg/dl (8.6-10.3); Carbon Dioxide 23.0 mmol/L (21-32); Chloride 110.0 mmol/L (98-107); Creatinine Clr Calc Pharmacy 56.1 ml/min; Glucose 69.0 mg/dl (70-99(Fasting)); Potassium 3.8 mmol/L (3.5-5.1); Sodium 141.0 mmol/L (136-145)
[2024-10-13 08:10] LABS: INR 2.3 (0.9-1.1); Prothrombin Time 22.9 Seconds (9.0-12.0)
--- NOTE | 2024-10-13 14:35 | Urology Progress Note ---
Date of Service October 13, 2024 Assessment & Plan (1) Gross hematuria: (2) Complicated UTI (urinary tract infection): Plan Pt afebrile, BP 90/46, HR 58. Labs today -Hemoglobin 8.2, Creatinine 1.06. Urine culture 10/09 negative. Blood cultures 10/09 prelim no growth x [address] abd pelvis 10/11 showed the right ureteral stent in good position with increased mild hydronephrosis and hyperdensity of the right collecting system likely hematuria/clot, no stones, no urinary gas, and findings of ileus. Ayala intact and draining pink tinged urine with CBI on moderate rate. Maintain Ayala catheter and continue CBI. Can titrate as needed. Ideally will try to wean off CBI as able. Okay to hand irrigate as needed for clots, retention, suprapubic pain. Continue supportive care and antibiotic therapy. Continue to trend labs. Urology will follow along, please contact us with any questions or concerns. Admission and Anticipated Discharge Date Admission Date: October 09, 2024 Subjective Pt seen at bedside today. No acute distress. Ayala draining pink tinged urine with CBI on moderate rate. Denies any pain. No f/c/n/v. Review of Systems Constitutional: as per Subjective / HPI Genitourinary: as per Subjective / HPI Physical Exam Constitutional: no acute distress Respiratory: no respiratory distress and no labored breathing Neurologic: moves all extremities and awake Psychiatric: A+Ox3, euthymic affect Genitourinary: Ayala intact w/CBI Results & Data Vital Signs (Past 12 Hours) Vital Signs Temp Pulse Pulse Resp BP Pulse Ox O2 Del Method 10/13/24 14:09 58 L 10/13/24 12:23 36.8 C 68 18 90/46 L 97 Room Air 10/13/24 07:08 57 L 10/13/24 07:06 36.7 C 60 17 98/52 L 96 Room Air 10/13/24 03:52 36.7 C 62 16 112/61 97 Room Air PG Care Time/CCT Total # of Minutes Spent Total Time Spent with Patient: Total time spent is greater than 50% in coordination of care (as documented) at patient's floor/unit and/or counseling patient: Coding Level of Care Code 50178 SUB INP/OBS CARE 2/35MIN Diagnoses Gross hematuria R31.0 Complicated UTI (urinary tract infection) N39.0
--- NOTE | 2024-10-13 14:45 | Hospitalist Progress Note ---
Date of Service October 13, 2024 Assessment & Plan (1) Nephrolithiasis: (2) Acute flank pain: (3) Complicated UTI (urinary tract infection): (4) Chronic anticoagulation: (5) Dyslipidemia: Plan #Complicated UTI #Hematuria - CT abd / pelvis reviewed - cover broadly with zosyn, complete 10 days course (last day 10/19) - IVF - UA showing pyuria, hematuria, + nitrite - BCx / UCx NGTD - urology on boards, recs appreciated - pain control with oxycodone, morphine - cont CBI #Ileus - resolved - no obstruction noted on imaging - diet resumed - ambulate as tolerated - ok to continue bisacodyl suppository to help evacuate the colon - prn enema #Mild hypotension - cont IVF and monitor closely - pt is also on tamsulosin #Anemia - hgb checked after fluids, suspecting a combination of loss and dilution - monitor closely - s/p 2 units of blood with improvement of Hgb, but trending down given ongoing hematuria. will give additional 1 unit PRBC - Hgb remains stable #Mechanical AVR with hx of thrombus - pt reports INR goal: 3.5 - 4.5 - wafarin to be adjusted to INR - monitor INR #Subtherapeutic INR- - goal INR is 3.5-4.5, peaked to 5.6 - enoxaparin reordered - cont warfarin 10-12.5mg as ordered #Fibromyalgia #Anxiety/depression #Migraines - cont depakote, fluoxetine #Constipation - Senna S 1 tab BID - miralax prn #HLD - cont statin #DVT ppx: therapeutic INR #Code status: full code #Dispo- pending improvement of hematuria as well as ileus 10/10: pt's at bedside 10/12: at bedside 10/13: at bedside Admission and Anticipated Discharge Date Admission Date: October 09, 2024 Subjective Significant BM overnight Pt is feeling much better and is now tolerating diet Review of Systems Review of Systems: Comprehensive ROS completed and is otherwise negative. Physical Exam Physical Exam: Gen: no acute distress, lying in bed comfortable HEENT: NC/AT, MMM Lungs: nonlabored breathing, CTAB CVS: s1s2nl, murmur noted (remains stable), RRR Abd: normal bowel sounds today, soft, NT / ND : CBI, mild right lower back tenderness Ext: no edema Neuro: AAOx3 Psych: calm cooperative Results & Data Results & Data Vital Signs (Past 12 Hours) Vital Signs Temp Pulse Pulse Resp BP Pulse Ox O2 Del Method 10/13/24 14:09 58 L 10/13/24 12:23 36.8 C 68 18 90/46 L 97 Room Air 10/13/24 07:08 57 L 10/13/24 07:06 36.7 C 60 17 98/52 L 96 Room Air 10/13/24 03:52 36.7 C 62 16 112/61 97 Room Air PG Care Time/CCT Total # of Minutes Spent Total Time Spent with Patient: Total time spent is greater than 50% in coordination of care (as documented) at patient's floor/unit and/or counseling patient: Coding Level of Care Code 88337 SUB INP/OBS CARE 2/35MIN Diagnoses Nephrolithiasis N20.0 Acute flank pain R10.9 Complicated UTI (urinary tract infection) N39.0 Chronic anticoagulation Z79.01 Dyslipidemia E78.5
[2024-10-13] MEDS: WARFARIN SOD 2.5 MG TAB PO SCH (15:59)
[2024-10-13] MEDS: WARFARIN SOD 10 MG TAB PO SCH (16:00)
[2024-10-13] MEDS: BACLOFEN 10 MG TAB PO PRN (20:13)
[2024-10-13] MEDS: TAMSULOSIN HCL 0.4 MG CAP PO SCH (20:13)
[2024-10-14 05:49] LABS: Hematocrit (blood only) 26.5 % (37.0-47.0); Hemoglobin 8.5 g/dl (12.0-16.0); Mean Corpuscular Hemoglobin 29.5 pg (25.0-34.0); Mean Corpuscular Volume 92.0 fL (80.0-100.0); Platelet Count 204 K/uL (130-400); RDW Standard Deviation 53.1 fL (36.4-46.3); Red Blood Count 2.88 M/uL (4.20-5.40); White Blood Count 7.48 K/ul (4.8-10.8)
[2024-10-14 06:07] LABS: Anion Gap 6.0 (3-11); Bilirubin,Total 0.2 mg/dl (0.2-1.0); Calcium 7.9 mg/dl (8.6-10.3); Carbon Dioxide 22.0 mmol/L (21-32); Chloride 114.0 mmol/L (98-107); Potassium 2.8 mmol/L (3.5-5.1); Sodium 142.0 mmol/L (136-145)
[2024-10-14 06:14] LABS: Alanine Aminotransferase 23.0 U/L (7-52); Albumin Globulin Ratio 1.3 (0.9-2); Alkaline Phosphatase 40.0 U/L (34-104); Blood Urea Nitrogen 16.0 mg/dl (6-23); Creatinine Clr Calc Pharmacy 46.9 ml/min; Globulin 2.0 gm/dl (2.5-4.0); Glucose 162.0 mg/dl (70-99(Fasting)); Total Protein 4.6 gm/dl (6.0-8.3)
[2024-10-14 06:18] LABS: INR 3.6 (0.9-1.1); Prothrombin Time 34.6 Seconds (9.0-12.0)
[2024-10-14] MEDS: POTASSIUM CHLORIDE / WTR 10 MEQ/100 ML PLCT IV SCH (07:57)
[2024-10-14] MEDS: POLYETHYLENE (MIRALAX) 17 GM PACK PO SCH (08:10)
--- NOTE | 2024-10-14 11:08 | Hospitalist Progress Note ---
Date of Service October 14, 2024 Assessment & Plan (1) Nephrolithiasis: (2) Acute flank pain: (3) Complicated UTI (urinary tract infection): (4) Chronic anticoagulation: (5) Dyslipidemia: Plan #Complicated UTI #Hematuria - CT abd / pelvis reviewed - cover broadly with zosyn, complete 10 days course (last day 10/19) - IVF - UA showing pyuria, hematuria, + nitrite - BCx / UCx NGTD - urology on boards, recs appreciated , plan for OR on 10/15/24 (with plan for stent removal) - pain control with oxycodone, morphine - cont CBI #Ileus - resolved - no obstruction noted on imaging - diet resumed - ambulate as tolerated - ok to continue bisacodyl suppository to help evacuate the colon - prn enema #Mild hypotension - cont IVF and monitor closely - pt is also on tamsulosin #Anemia - hgb checked after fluids, suspecting a combination of loss and dilution - monitor closely - s/p 3 units of blood with improvement of Hgb. cont to monitor - Hgb remains stable #Mechanical AVR with hx of thrombus - pt reports INR goal: 3.5 - 4.5 - wafarin to be adjusted to INR - monitor INR - if ongoing bleeding despite urological intervention, consider cards consult to discuss INR goal range #Subtherapeutic INR- - goal INR is 3.5-4.5, peaked to 5.6 - enoxaparin reordered - cont warfarin 10-12.5mg as ordered #Fibromyalgia #Anxiety/depression #Migraines - cont depakote, fluoxetine #Constipation - Senna S 1 tab BID - miralax prn #HLD - cont statin #DVT ppx: therapeutic INR #Code status: full code #Dispo- pending improvement of hematuria as well as ileus 10/10: pt's at bedside 10/12: at bedside 10/13: at bedside Admission and Anticipated Discharge Date Admission Date: October 09, 2024 Subjective with improvement in INR, she is having increasing bleeding She is also having increased pain with reduced CBI Review of Systems Review of Systems: Comprehensive ROS completed and is otherwise negative. Physical Exam Physical Exam: Gen: no acute distress, lying in bed comfortable HEENT: NC/AT, MMM Lungs: nonlabored breathing, CTAB CVS: [id number], murmur noted (remains stable), RRR Abd: normal bowel sounds today, soft, NT / ND : CBI, mild right lower back tenderness Ext: no edema Neuro: AAOx3 Psych: calm cooperative Results & Data Results & Data Vital Signs (Past 12 Hours) Vital Signs Temp Pulse Resp BP Pulse Ox O2 Del Method 10/14/24 10:08 36.4 C L 62 18 98/49 L 95 Room Air 10/14/24 09:15 64 106/52 L 10/14/24 08:22 36.7 C 74 18 93/62 L 95 Room Air 10/14/24 03:36 36.7 C 56 L 18 121/65 97 Room Air 10/13/24 23:46 36.9 C 62 20 113/60 95 Room Air PG Care Time/CCT Total # of Minutes Spent Total Time Spent with Patient: Total time spent is greater than 50% in coordination of care (as documented) at patient's floor/unit and/or counseling patient: Coding Level of Care Code 41096 SUB INP/OBS CARE 2/35MIN Diagnoses Nephrolithiasis N20.0 Acute flank pain R10.9 Complicated UTI (urinary tract infection) N39.0 Chronic anticoagulation Z79.01 Dyslipidemia E78.5
[2024-10-14 13:30] LABS: Anion Gap 5.0 (3-11); Blood Urea Nitrogen 12.0 mg/dl (6-23); Calcium 7.9 mg/dl (8.6-10.3); Carbon Dioxide 24.0 mmol/L (21-32); Chloride 112.0 mmol/L (98-107); Creatinine Clr Calc Pharmacy 43.8 ml/min; Glucose 139.0 mg/dl (70-99(Fasting)); Potassium 4.1 mmol/L (3.5-5.1); Sodium 141.0 mmol/L (136-145)
--- NOTE | 2024-10-14 14:25 | Urology Progress Note ---
Date of Service October 14, 2024 Assessment & Plan (1) Gross hematuria: (2) Ureteral stent present: Plan Pt afebrile, BP 98/49, HR 63. Labs today -no leukocytosis, hemoglobin 8.5, Creatinine 1.36. Urine and blood cultures negative. Continues on Zosyn. CT abd pelvis 10/11 showed the right ureteral stent in good position with increased mild hydronephrosis and hyperdensity of the right collecting system likely hematuria/clot, no stones, no urinary gas, and findings of ileus. Ayala intact and draining pink tinged urine with CBI on slow rate. Patient with ongoing hematuria in the setting of a ureteral stent and anticoagulation. Given her ongoing hematuria despite CBI, we discussed possible stent removal at bedside versus in the operating room. Risks/benefits of each were reviewed. Will plan to make NPO at midnight and reassess in the morning for stent removal. Maintain Ayala catheter and continue CBI. Can titrate as needed. Ideally will try to wean off CBI as able. Okay to hand irrigate as needed for clots, retention, suprapubic pain. Continue supportive care and antibiotic therapy. Urology will follow along, please contact us with any questions or concerns. Plan reviewed Dr. Escobedo, on-call urologist. Admission and Anticipated Discharge Date Admission Date: October 09, 2024 Subjective Patient was seen at bedside today. She is awake and resting in bed on arrival. No acute distress. Remains on CBI. Continues to have hematuria. Nursing has attempted to wean down CBI without success. Ayala currently intact and draining pink-tinged urine with CBI on slow. No reported pain at present. Patient is being moved to ICU due to to increased nursing care, she is not ICU level of care. Review of Systems Constitutional: as per Subjective / HPI Genitourinary: as per Subjective / HPI Physical Exam Constitutional: no acute distress Respiratory: no respiratory distress and no labored breathing Skin: No visible rashes or lesions to exposed skin areas Neurologic: moves all extremities and awake Psychiatric: A+Ox3, euthymic affect Genitourinary: Ayala intact w/CBI Results & Data Vital Signs (Past 12 Hours) Vital Signs Temp Pulse Pulse Resp BP Pulse Ox O2 Del Method 10/14/24 10:46 63 10/14/24 10:08 36.4 C L 62 18 98/49 L 95 Room Air 09/04/25 09:15 64 106/52 L 10/14/24 08:22 36.7 C 74 18 93/62 L 95 Room Air 10/14/24 03:36 36.7 C 56 L 18 121/65 97 Room Air PG Care Time/CCT Total # of Minutes Spent Total Time Spent with Patient: Total time spent is greater than 50% in coordination of care (as documented) at patient's floor/unit and/or counseling patient: Coding Level of Care Code 79870 SUB INP/OBS CARE 2/35MIN Diagnoses Gross hematuria R31.0 Ureteral stent present Z96.0
[2024-10-14] MEDS: PHENAZOPYRIDINE HCL 200 MG TAB PO PRN (15:19)
[2024-10-15 05:20] LABS: Hematocrit (blood only) 24.6 % (37.0-47.0); Hemoglobin 8.1 g/dl (12.0-16.0); Mean Corpuscular Hemoglobin 30.7 pg (25.0-34.0); Mean Corpuscular Volume 93.2 fL (80.0-100.0); Platelet Count 225 K/uL (130-400); RDW Standard Deviation 56.7 fL (36.4-46.3); Red Blood Count 2.64 M/uL (4.20-5.40); White Blood Count 7.06 K/ul (4.8-10.8)
[2024-10-15 05:33] LABS: Anion Gap 5.0 (3-11); Calcium 7.9 mg/dl (8.6-10.3); Carbon Dioxide 22.0 mmol/L (21-32); Chloride 114.0 mmol/L (98-107); Magnesium 1.9 mg/dl (1.7-2.4); Potassium 4.1 mmol/L (3.5-5.1); Sodium 141.0 mmol/L (136-145)
[2024-10-15 05:39] LABS: Blood Urea Nitrogen 15.0 mg/dl (6-23); Creatinine Clr Calc Pharmacy 48.4 ml/min; Glucose 88.0 mg/dl (70-99(Fasting))
[2024-10-15 05:49] LABS: INR 4.1 (0.9-1.1); Prothrombin Time 39.6 Seconds (9.0-12.0)
[2024-10-15] MEDS ORDERED: PROPOFOL IV EMULSION 10 MG/ML 20 ML VIAL IV ONE ×3 (07:43→08:51)
[2024-10-15] MEDS ORDERED: KETOROLAC 30 MG/ML VIAL ONE (07:43)
[2024-10-15] MEDS ORDERED: ONDANSETRON INJ 2 MG/ML 2 ML VIAL ONE (07:43)
[2024-10-15] MEDS ORDERED: LIDOCAINE 2% 2 ML VIAL/AMP(20MG/ML) INFIL ONE (07:43)
--- NOTE | 2024-10-15 07:51 | Anesthesiology Consultation ---
Date of Service October 15, 2024 Assessment & Plan ASA ASA3 Proposed Anesthesia Anesthesia Type: General Risk / Benefits Reviewed With: PT / POA / Parent / Guardian, Accepts Plan and Informed Consent Obtained History Surgery Operation Date: 10/15/24 07:00 Proposed Procedures p Cystoscopy Clot Evacuation Possible Right Stent Removal - Stephan Escobedo, DO Height/Weight Height: 5 ft 6 in Weight: 63.2 kg Allergies Allergy/AdvReac Type Severity Reaction Status Date / Time cinnamon Allergy Severe lips and Verified 10/07/24 09:07 throat swelling Relampago And Derivatives Allergy Severe ulcers in Verified 10/07/24 09:07 mouth Horse/Equine Containing Allergy Severe breathing Verified 10/07/24 09:07 Products issues, nasal congestion, coughing, sneezing adhesive Allergy Intermediate Redness of Verified 10/07/24 09:07 Skin Cephalosporins Allergy Intermediate Rash with Verified 10/07/24 09:07 Keflex amitriptyline AdvReac Severe Night Verified 10/07/24 09:07 Terros duloxetine AdvReac Intermediate Gastrointestinal Verified 10/07/24 09:07 Upset gabapentin AdvReac Intermediate Gastrointestinal Verified 10/07/24 09:07 Upset Medications Home Medications Medication Instructions Recorded Confirmed Last Taken calcium crb,vis-[id number] 1 tab PO BID 10/23/22 10/09/24 10/05/24 10:00 [Citracal Plus Bone Density] biotin 5,000 mcg chewable tablet 5,000 mcg PO DAILY 01/15/23 10/09/24 10/06/24 10:00 ferrous sulfate 325 mg (65 mg 325 mg PO QPM 01/15/23 10/09/24 10/05/24 21:00 iron) tablet (FeroSul) loratadine 10 mg tablet (Claritin) 10 mg PO DAILY PRN Allergic 01/15/23 10/09/24 09/19/24 Symptoms dicyclomine 10 mg capsule 10 mg PO QID PRN abdominal pain 02/19/24 10/09/24 09/20/24 08:00 #120 caps potassium chloride 20 mEq 20 meq PO DAILY #90 tabs 03/02/24 10/09/24 10/06/24 10:00 tablet,extended release(part/cryst) (Klor-Con M) cholecalciferol (vitamin D3) 25 25 mcg PO DAILY 06/07/24 10/09/24 10/05/24 10:00 mcg (1,000 unit) tablet diclofenac sodium 1 % topical gel 2 g topical QID PRN Pain 06/07/24 10/09/24 Unknown fluoxetine 20 mg capsule (Prozac) 60 mg PO QAM 06/07/24 10/09/24 10/06/24 10:00 warfarin 5 mg tablet 10 mg PO DAILY #180 tabs 06/09/24 10/09/24 10/03/24 16:00 triamcinolone acetonide 0.1 % 1 applic topical BID PRN Skin 07/13/24 10/09/24 Unknown topical cream Irritation warfarin 5 mg tablet 12.5 mg PO QPM 07/13/24 10/09/24 10/04/24 16:00 ondansetron 8 mg disintegrating 8 mg PO DAILY PRN nausea and 08/18/24 10/09/24 Unknown tablet vomiting #30 tabs Medical Marijuana 1 tab PO HS PRN Pain/sleep 08/31/24 10/09/24 10/06/24 21:00 albuterol sulfate 90 mcg/actuation 2 puff inhalation DAILY PRN 09/20/24 10/09/24 Unknown aerosol inhaler Shortness Of Breath Or Wheezing amoxicillin 500 mg tablet See Rx Instructions .Route .COMPLEX 09/20/24 10/09/24 Unknown baclofen 10 mg tablet 10 mg PO TID PRN muscle spasm #90 09/21/24 10/09/24 10/06/24 21:00 tabs oxycodone 5 mg tablet 5 mg PO Q6H PRN pain #10 tabs 09/26/24 10/09/24 10/07/24 04:00 montelukast 10 mg tablet 10 mg PO HS 10/04/24 10/09/24 10/06/24 21:00 (Singulair) tamsulosin 0.4 mg capsule (Flomax) 0.4 mg PO QAM 10/04/24 10/09/24 10/06/24 10:00 lorazepam 1 mg tablet 1 mg PO BID #60 tabs 10/05/24 10/09/24 10/06/24 21:00 divalproex 250 mg tablet,extended 250 mg PO BID 10/07/24 10/09/24 10/06/24 21:00 release 24 hr (Depakote ER) enoxaparin 100 mg/mL subcutaneous 100 mg subcut Q12H 10/07/24 10/09/24 10/06/24 21:00 syringe (Lovenox) levofloxacin 500 mg tablet 500 mg PO DAILY 7 days #7 tabs 10/07/24 10/09/24 Unknown oxycodone-acetaminophen 7.5 mg-325 1 tab PO Q8H PRN pain 3 days #7 10/07/24 10/09/24 Unknown mg tablet (Percocet) tabs phenazopyridine 200 mg tablet 200 mg PO Q8H PRN pain #10 tabs 10/07/24 10/09/24 Unknown (Pyridium) sumatriptan succinate 100 mg 100 mg PO DAILY PRN Migraine 10/07/24 10/09/24 09/30/24 21:00 tablet (Imitrex) Headache tamsulosin 0.4 mg capsule 0.4 mg PO HS #30 caps 10/07/24 10/09/24 Unknown topiramate 100 mg tablet (Topamax) 100 mg PO BID 10/07/24 10/09/24 10/06/24 21:00 doxycycline hyclate 100 mg capsule 100 mg PO BID 7 days #14 caps 10/08/24 10/09/24 Unknown fluticasone propionate 50 1 spray intranasal BID #16 grams 10/08/24 10/09/24 Unknown mcg/actuation nasal spray,suspension (Flonase Allergy Relief) onabotulinumtoxinA 200 unit 155 unit IM UD 10/09/24 10/09/24 Unknown solution for injection (Botox) hydrocodone 5 mg-acetaminophen 325 1 tab PO Q8H PRN pain #10 tabs 10/12/24 Unknown mg tablet rosuvastatin 5 mg tablet (Crestor) 5 mg PO HS #90 tabs 10/12/24 Unknown Active Medications Generic Name Dose Route Start Last Admin Trade Name Freq PRN Reason Stop Dose Admin Albuterol 2 puffs 10/09/24 11:14 10/11/24 00:10 Albuterol Hfa 8 Gm Inhaler INH 11/08/24 11:13 2 puffs DAILY PRN Administration Shortness Of Breath Or Wheezing Baclofen 10 mg 10/09/24 11:14 10/13/24 20:13 Baclofen 10 Mg Tab PO 11/08/24 11:13 10 mg TID PRN Administration muscle spasm Bisacodyl 10 mg 10/11/24 09:50 10/12/24 12:09 Bisacodyl 10 Mg Supp LA 11/10/24 09:49 10 mg QAM PRN Administration Constipation Divalproex Sodium 250 mg 10/09/24 11:30 10/14/24 20:19 Divalproex Extended Release 250 Mg Tabcr PO 11/08/24 11:29 250 mg BID GUANAKO Administration Fluoxetine HCl 60 mg 10/09/24 11:30 10/14/24 08:05 Fluoxetine Hcl 20 Mg Cap PO 11/08/24 11:29 60 mg QAM GUANAKO Administration Fluticasone Propionate 1 sprays 10/09/24 11:30 10/14/24 20:19 Fluticasone Propionate Na Spr 16 Gm Btl NA 11/08/24 11:29 1 sprays BID GUANAKO Administration Piperacillin Sod/Tazobactam Sod 4.5 gm in 100 mls @ 25 mls/hr 10/09/24 11:30 10/15/24 05:04 Zosyn IV 10/19/24 11:29 25 mls/hr Q8H GUANAKO Administration Protocol Lorazepam 1 mg 10/09/24 21:00 10/14/24 20:19 Lorazepam 1 Mg Tab PO 11/08/24 20:59 1 mg HS GUANAKO Administration Lorazepam 0.5 mg 10/11/24 17:22 10/12/24 23:37 Lorazepam 2 Mg/1 Ml Vial IV 11/10/24 17:21 0.5 mg Q8H PRN Administration Anxiety/Agitation Montelukast Sodium 10 mg 10/09/24 21:00 10/14/24 20:19 Montelukast Sodium 10 Mg Tablet PO 11/08/24 20:59 10 mg HS GUANAKO Administration Morphine Sulfate 4 mg 10/10/24 17:19 10/11/24 03:35 Morphine Sulfate 2 Mg/Ml Carp IV 10/23/24 11:13 4 mg Q6H PRN Administration breakthrough pain Ondansetron HCl 8 mg 10/09/24 11:14 10/14/24 23:06 Ondansetron 4 Mg Od Tab PO 11/08/24 11:13 8 mg DAILY PRN Administration nausea and vomiting Oxybutynin Chloride 5 mg 10/10/24 14:00 10/15/24 05:38 Oxybutynin Chloride 5 Mg Tab PO 11/09/24 13:59 Not Given Q8 GUANAKO Phenazopyridine HCl 200 mg 10/14/24 14:23 10/14/24 15:19 Phenazopyridine Hcl 200 Mg Tab PO 10/16/24 14:22 200 mg BID PRN Administration Bladder pain Polyethylene Glycol 17 gm 10/14/24 09:00 10/14/24 08:10 Polyethylene (Miralax) 17 Gm Pack PO 11/13/24 08:59 17 gm DAILY GUANAKO Administration Rosuvastatin Calcium 5 mg 10/09/24 21:00 10/14/24 20:19 Rosuvastatin Calcium 5 Mg Tab PO 11/08/24 20:59 5 mg HS GUANAKO Administration Senna/Docusate Sodium 2 tab 10/11/24 21:00 10/14/24 20:51 Docusate Sodium/Senna 50/8.6mg Tab PO 11/10/24 20:59 Not Given BID GUANAKO Tamsulosin HCl 0.8 mg 10/11/24 21:00 10/14/24 20:19 Tamsulosin Hcl 0.4 Mg Cap PO 11/10/24 20:59 0.8 mg HS GUANAKO Administration Topiramate 100 mg 10/09/24 11:30 10/14/24 20:19 Topiramate 100 Mg Tab PO 11/08/24 11:29 100 mg BID GUANAKO Administration Tramadol HCl 50 mg 10/13/24 23:30 10/15/24 05:39 Tramadol Hcl 50 Mg Tablet PO 11/12/24 23:29 Not Given Q6 GUANAKO Warfarin Sodium 10 mg 10/09/24 16:00 10/14/24 16:37 Warfarin Sod 10 Mg Tab PO 11/08/24 15:59 10 mg [email or web address] GUANAKO Administration Warfarin Sodium 10 mg 10/11/24 16:00 10/13/24 16:00 Warfarin Sod 10 Mg Tab PO 11/10/24 15:59 10 mg [email or web address] GUANAKO Administration Warfarin Sodium 2.5 mg 10/11/24 16:00 10/13/24 15:59 Warfarin Sod 2.5 Mg Tab PO 11/10/24 15:59 2.5 mg [email or web address] GUANAKO Administration Past Medical History Medical History Irritable bowel syndrome Gastritis Migraine Dehydration chronic - "I get easily dehydrated, especially when NPO" as per patient PONV (postoperative nausea and vomiting) History of congenital aortic insufficiency congenital aortic stenosis- s/p AVR Hx of hypercholesterolemia Hx of renal calculi Myofascial pain syndrome of thoracic spine Anxiety and depression Migraine botox injections - [facility] [place] [facility] Chronic anticoagulation Warfarin Dyslipidemia Insomnia History of COVID-19 (2020) no hosp; resolved Fibromyalgia Hx-TIA (transient ischemic attack) ~2005- occasional double vision since; follows w/ [facility] Personal history of gastric bypass Exercise / Class Metabolic Activity II 4-5 Yardwork/Stairs/Walk up hill Past Family History Family History Sister Colorectal cancer Father Diabetes Heart disease Hypertension Stroke Mother Diabetes Heart disease Hypertension Aunt Ovarian cancer Denies family history of Prostate cancer Breast cancer Past Surgical History Surgical History Mechanical heart valve present AVR 2008 for bicuspid aortic valve History of esophagogastroduodenoscopy (EGD) Hx of colonoscopy (07/2024) Aortic valve replaced (2008) History of lithotripsy S/P total hysterectomy bso S/P cholecystectomy S/P eye surgery S/P D&C (status post dilation and curettage) S/P hernia surgery S/P gastric bypass (2002) fiona en y S/P tubal ligation x2 S/P right heart catheterization multiple, no stents last one prior to valve replacement 2008 Past Anesthesia History No Hx of Anesthesia Complications and No Family Hx of Anesthesia Complications History of PONV No Hx of PONV and No Hx of Motion Sickness Social History Smoking Status: Never smoker Do You Dip or Chew Tobacco: No Hx Alcohol Use: Yes Alcohol type: wine alcohol intake frequency: holidays/special occasions only Hx Substance Use: Yes (medical card) substance use type: marijuana Substance Use Type Other:: medical Last Used Substance: Hours (ago) Last Used Substance Other:: uses 5mg every night (oral tablet) Review of Systems denies fever/cough/ colds/ chest pain/ SOB/ DMITRY denies DMITRY Physical Exam Vital Signs Last Vital Signs Temp 37 C 10/15/24 07:40 Pulse 58 L 10/15/24 07:30 Resp 18 10/15/24 07:30 BP 101/55 L 10/15/24 07:40 Pulse Ox 99 10/15/24 07:40 O2 Del Method Room Air 10/15/24 07:40 ENMT Mouth: no TMJ abnormality and no dentition abnormality Thyromental Distance: > or= 3.5 Finger Breadths Mallampati Class: II Neck neck extension not limited Respiratory normal respiratory effort; no respiratory distress Auscultation: lungs clear to auscultation bilaterally Cardiovascular Rate/Rhythm: regular rate and regular rhythm Heart Sounds: + murmur Neurologic moves all extremities Psychiatric Orientation: alert and oriented x 3 Testing Laboratory Results 10/15/24 04:55 10/15/24 04:55 PT 39.6 Seconds (9.0-12.0) H 10/15/24 04:55 INR 4.1 (0.9-1.1) H 10/15/24 04:55 APTT 44 Seconds (21-31) H 10/09/24 06:54 Urine Color Red 10/09/24 06:10 Urine Appearance Cloudy (Clear) A 10/09/24 06:10 Urine pH 7.0 (4.5-7.5) 10/09/24 06:10 Ur Specific [place] 1.025 (1.000-1.030) 10/09/24 06:10 Urine Protein 3+ (Negative) H 10/09/24 06:10 Urine Glucose (UA) Negative (Negative) 10/09/24 06:10 Urine Ketones Negative (Negative) 10/09/24 06:10 Urine Nitrite Positive (Negative) A 10/09/24 06:10 Ur Leukocyte Esterase Trace (Negative) H 10/09/24 06:10 Urine RBC >20 /hpf (0-2) H 10/09/24 06:10 Urine WBC >50 /hpf (0-5) H 10/09/24 06:10 Ur Epithelial Cells 0-2 /hpf (0-2) 10/09/24 06:10 Blood Type A Positive 10/10/24 06:31 Antibody Screen NEGATIVE 10/10/24 06:31 10/12/24 10:38 Gram Stain - Final Sputum, Expectorated Sputum Culture - Final Pippa albicans Pippa dubliniensis 10/09/24 06:10 Aerobic Blood Culture - Final Blood No growth in Aerobic bottle after 5 days. Anaerobic Blood Culture - Final 10/09/24 06:10 Aerobic Blood Culture - Final Blood No growth in Aerobic bottle after 5 days. Anaerobic Blood Culture - Final No growth in Anaerobic bottle after 5 days. 10/09/24 06:10 Urine Culture - Final Urine,Clean Catch No growth - less than 1,000 colonies/mL.
--- NOTE | 2024-10-15 08:09 | History & Physical Bridge Note ---
Date of Service October 15, 2024 History & Physical Bridge Note I have examined the patient, reviewed the History & Physical and in the interval since the performance of the History & Physical I have noted the following changes of clinical significance: no changes noted Plan for cystoscopy with clot evacuation and possible fulguration. Possible stent extraction and possible bilateral retrograde pyelogram.
[2024-10-15] MEDS ORDERED: MIDAZOLAM HCL 1 MG/ML 2ML VIAL ONE (08:11)
[2024-10-15] MEDS ORDERED: ePHEDrine sulfate 50 MG/5 ML SYR ONE (09:00)
[2024-10-15] MEDS ORDERED: PHENYLEPHRINE 100MCG/ML 5ML SYR ONE (09:00)
[2024-10-15] MEDS: DIATRIZOATE MEGLUMINE 30% 100ML VIAL INSTIL PRN (09:10)
--- NOTE | 2024-10-15 09:23 | Operative Report ---
[facility] Post Operative Report Pre & Post Diagnosis Operation Date: 10/15/24 07:00 Pre-Op Diagnosis: Gross hematuria Post-Op Diagnosis: Gross hematuria I identified the patient and participated in the time-out.: Yes Procedure Operation Date: 10/15/24 07:00 Actual Procedures Cystoscopy with Bilateral Retrograde Pyelograms, Right stent removal, Fulguration of bladder and bladder neck(Not Applicable) - Stephan Escobedo DO Surgeon Stephan Escobedo, II, DO Bilingual Student Tutor None Estimated Blood Loss 1 Findings Consistent with Post-Op Diagnosis Irritation along the posterior wall consistent with irritation from catheter. No sign of major fissure or ulcer or severe area. There was some minor minimal oozing from the irritation on the posterior wall. A minor venous appearing bleed was also noted at the bladder neck and trigone region of the bladder that were associated what appeared to be varicosities at the bladder neck. Bleeding was able to be controlled. A nearly clear dark red/purple-tinged urine was appreciated draining from the right renal pelvis. This had a very minor amount of debris. No sign of severe or arterial bleeding. Retrograde pyelogram showed no severe filling defect. Drainage films on the right and left side showed prompt excretion from the retrograde pyelogram without sign of obstruction. Specimens None Drains None Anesthesia Type MAC Complications none Disposition Disposition: Recovery Room Indications Patient with gross hematuria and obstruction. Risks and benefits discussed at length. Description of Procedure Patient was consented and brought back to the operating room. Patient was placed under anesthesia in the supine position and moved to the dorsal lithotomy po sition. Patient was prepped and draped in the regular sterile fashion. A time out was completed. A 30degree Cystoscope was placed into the bladder and the entire bladder was examined. The UO's were identified. The bladder was thoroughly investigated. There was some areas of irritation on the posterior wall consistent with irritation from the catheter. There was what appeared to be a very minor venous/capillary bleed in this which was not significant and did not appear to be causing significant gross hematuria. There was a mildly more intense area of what appeared to be venous bleeding from varicosities around the bladder neck. Neither of the 2 areas the posterior wall and the bladder neck/trigone appeared to have a significant bleed or be the source of significant gross hematuria. The remainder of the bladder had been inspected. There was no sign of fissure or ulcer or other areas of bleeding throughout the bladder. The right stent was found to be in good position. There did appear to be a dark red/purple-tinged urine draining without considerable sign of true hematuria. No major clots or other issues no clots were appreciated on the stent. The stent on the right side was able to grasp and slowly removed. After removal the UO was inspected immediately. There was no sign of major bleed arterial bleed large amount of clot or debris or other major changes. A small amount of sediment was seen after the removal of the stent. The UO was cannulized with a catheter and a retrograde pyelogram was completed. On retrograde pyelogram there was no sign of major filling defect or other abnormality. The left side was then assessed and a retrograde pyelogram completed. Additionally there was no sign of major issue on the left side. Comparatively the right side did look slightly more dilated likely from recent obstruction recent stone treatment and recent hematuria. Drainage films were assessed and there appeared to be prompt excretion of contrast on each side with no pooling of contrast or signs of major obstruction. Images were captured for each of these. The information the bladder were once again inspected. At this point we decided to fulgurate these lesions to control any further bleeding as well as to manage the lesion. The posterior wall lesions were fulgurated using the loop for cautery. The small areas of varicosities at the bladder neck were fulgurated care was taken to try to fulgurate these on the bladder/bladder neck side. No major bleeding was noted from the urethra. There was some minor inflammation after fulguration. No active bleeding was noted. All bleeding had been controlled well. The urethra was inspected and found to be also inflamed. The inflammation within the urethra did appear to be moderate similar to the issues at the bladder neck. No active bleeding was discovered. At this point the bladder was inspected a final time. No age or areas of bleeding no major issues or concerns. No considerable bleeding or other issues coming from either ureter. A very mildly dark red/purple urine was appreciated coming from the left side with a small amount of cloudy appearing debris. With good drainage and no signs of active bleeding it was decided to forego stents or catheters further. Otherwise no major issues or concerns. The bladder was emptied. The scope was removed. The patient was cleaned, aroused from anesthesia, and transferred to the pacu in stable condition having tolerated the procedure well with no complications. I was present and participated in all aspects of the procedure. The patient will be monitored in the PACU until transferred. Will plan to have patient monitor in the hospital for issues. Will continue to transition back to her normal anticoagulation. Will likely plan to have patient follow-up in approximately 2 to 4 weeks for reevaluation in the office once discharged. I attest to the content of the Intraoperative Record and any orders documented therein. Any exceptions are noted below.
--- NOTE | 2024-10-15 10:16 | Anesthesiology Progress Note ---
Date of Service October 15, 2024 Anesthesia Post Procedure Vital Signs Vital Signs: Temp Pulse Pulse Resp BP BP Pulse Ox 10/15/24 09:35 70 17 95/40 L 100 10/15/24 09:30 66 16 101/46 L 100 10/15/24 09:24 66 20 101/43 L 100 10/15/24 07:40 101/55 L 10/15/24 07:40 101/55 L 99 10/15/24 07:40 37 C 10/15/24 07:30 58 L 18 10/15/24 07:00 58 L 19 10/15/24 04:00 37.1 C 68 30 H 95/46 L 96 10/15/24 00:00 65 10/14/24 23:40 36.8 C 68 20 109/45 L 97 10/14/24 20:12 36.7 C 59 L 16 121/40 L 96 10/14/24 15:28 36.5 C 60 18 82/65 L 100 10/14/24 10:46 63 O2 Del Method O2 Flow Rate 10/15/24 09:35 Oxymask 2 10/15/24 09:30 Oxymask 7 10/15/24 09:24 Oxymask 7 10/15/24 07:40 10/15/24 07:40 Room Air 10/15/24 07:40 10/15/24 07:30 10/15/24 07:00 10/15/24 04:00 Room Air 10/15/24 00:00 10/14/24 23:40 Room Air 10/14/24 20:12 Room Air 10/14/24 15:28 Room Air 10/14/24 10:46 Pain Intensity Right Abdomen: Pain Intensity: 5 Transfer of Care Handoff Completed per policy Notes Mental Status: alert / awake / arousable and participated in evaluation Patient Amnestic to Procedure: Yes Nausea / Vomiting: adequately controlled Pain: adequately controlled Airway Patency, RR, SpO2: stable & adequate BP & HR: stable & adequate Hydration State: stable & adequate Anesthetic Complications: no major complications apparent and Pt Satisfied with anesthetic care
--- NOTE | 2024-10-15 11:52 | Hospitalist Progress Note ---
Date of Service October 15, 2024 Assessment & Plan (1) Nephrolithiasis: (2) Acute flank pain: (3) Complicated UTI (urinary tract infection): (4) Chronic anticoagulation: (5) Dyslipidemia: Plan #Gross Hematuria - UA showing pyuria, hematuria, + nitrite - initially concerning for infection but urine culture negative. Will keep Zosyn going for today perioperatively but I don't see a reason to keep this going past today - discussed with urology and agree. - BCx / UCx NGTD both on admission and urine culture negative from - Suspect stent and catheter causing bleeding, now resolved following stent removal today, 10/15. As long #Ileus - resolved - no obstruction noted on imaging - diet resumed - ambulate as tolerated - ok to continue bisacodyl suppository to help evacuate the colon - prn enema #Mild hypotension - pt is also on tamsulosin #Anemia - hgb checked after fluids, suspecting a combination of loss and dilution - monitor closely - s/p 3 units of blood with improvement of Hgb. cont to monitor - Hgb remains stable #Mechanical AVR with hx of thrombus - pt reports INR goal: 3.5 - 4.5 - increasing INR on her usual dosing and she reports non-stable INR usually therefore will reduce today's dose to 10mg (usually 12.5mg) - repeat INR tomorrow #Fibromyalgia #Anxiety/depression #Migraines - cont depakote, fluoxetine #HLD - cont statin #DVT ppx: therapeutic INR #Disposition - possible discharge tomorrow as long as not passing clots, hemoglobin stable Admission and Anticipated Discharge Date Admission Date: October 09, 2024 Anticipated date of discharge: 10/16/24 Subjective Doing well post stent removal except for labial pain and irritation. Passed clear urine since procedure. No sign of severe or arterial bleeding on cystoscopy. Physical Exam Constitutional: WD/WN, vitals as above Gastrointestinal (Abdomen): normal bowel sounds, soft, nontender, no hepatosplenomegaly Genitourinary: no CVA tenderness seen with cable tender Darwin Melendez RN. Mildly swollen labia, very mild papular rash on perineal skin next to labia. No discharge. Results & Data Results & Data Vital Signs (Past 12 Hours) Vital Signs Temp Pulse Pulse Resp BP BP Pulse Ox 10/15/24 09:35 70 17 95/40 L 100 09/05/25 09:30 66 16 101/46 L 100 10/15/24 09:24 66 20 101/43 L 100 10/15/24 07:40 101/55 L 10/15/24 07:40 101/55 L 99 10/15/24 07:40 37 C 10/15/24 07:30 58 L 18 10/15/24 07:00 58 L 19 10/15/24 04:00 37.1 C 68 30 H 95/46 L 96 10/15/24 00:00 65 O2 Del Method O2 Flow Rate 10/15/24 09:35 Oxymask 2 10/15/24 09:30 Oxymask 7 10/15/24 09:24 Oxymask 7 10/15/24 07:40 10/15/24 07:40 Room Air 10/15/24 07:40 10/15/24 07:30 10/15/24 07:00 10/15/24 04:00 Room Air 10/15/24 00:00 PG Care Time/CCT Total # of Minutes Spent Total Time Spent with Patient: Total time spent is greater than 50% in coordination of care (as documented) at patient's floor/unit and/or counseling patient: Coding Level of Care Code 45226 SUB INP/OBS CARE MIN Diagnoses Nephrolithiasis N20.0 Acute flank pain R10.9 Complicated UTI (urinary tract infection) N39.0 Chronic anticoagulation Z79.01 Dyslipidemia E78.5
[2024-10-15] MEDS: LIDOCAINE 2% JELLY 5 ML TUBE EXT SCH (12:16)
--- NOTE | 2024-10-15 15:15 | Fluoroscopy Report ---
INTRAOPERATIVE RADIOGRAPHS CLINICAL HISTORY: Right ureteral stent removal. Fluoro time: 19 seconds Ka,r: 2.62 mGy FINDINGS: 2 spot fluoroscopic views of the upper abdomen are correlated with abdominal CT dated 025. The right ureteral stent seen previously is no longer visualized. Contrast within the right and left renal collecting systems shows no hydronephrosis. Cholecystectomy clips are seen in the right up per quadrant. IMPRESSION: Ureteral stent removal images as above. Electronically signed by: Raul Darby M.D. 10/15/2024 3:13 PM
[2024-10-15 23:56] VITALS: TEMP 98.6
[2024-10-16 04:56] LABS: Hematocrit (blood only) 23.6 % (37.0-47.0); Hemoglobin 7.7 g/dl (12.0-16.0)
[2024-10-16 05:37] LABS: INR 4.7 (0.9-1.1); Prothrombin Time 44.2 Seconds (9.0-12.0)
[2024-10-16 08:21] LABS: Iron 39.0 mcg/dl (35-150); Total Iron Binding Cap Calc 242.0 mcg/dl (250-450); Transferrin 173.0 mg/dl (200-360); Transferrin (FE) Percent Satur 16.0 % (15-50)
[2024-10-16 08:25] VITALS: PULSE 69; RESP 19; O2SAT 99
[2024-10-16 08:41] LABS: Ferritin 50.3 ng/ml (8-388)
--- NOTE | 2024-10-16 09:14 | Discharge Summary ---
Discharge Summary Date of Service October 16, 2024 Principal Dx & Hospital Course #1 = Principal Diagnosis (1) Nephrolithiasis: (2) Acute flank pain: (3) Complicated UTI (urinary tract infection): (4) Chronic anticoagulation: (5) Dyslipidemia: (6) Acute blood loss anemia: óGmez Wray is a 54 year old female admitted to [facility] from October 09 to October 16, 2024 due to hematuria secondary to stent insertion. Initially suspected to have a urine tract infection in addition due to fever at home however she had no additional fever here and urine cultures were subsequently negative therefore antibiotics have been discontinued. Hematuria was treated with continuous bladder irrigation and eventual stent removal on October 15. She was also diagnosed with acute blood loss anemia due to the hematuria requiring 3 units of packed RBCs during admission. Iron studies on discharge were normal therefore no iron transfusions are recommended but she will continue on iron oral supplementation that she was on previously. Due to elevated INR 4.7 on day of discharge recommend going down to 5 mg warfarin daily for the next 2 days (including today) and repeating INR on Friday. She will call her certified substance abuse counselor for recommendations following this. To help with INR management: October 16 - INR 4.7, recommend 5 mg (to be taken when you go home) October 15 - INR 4.1, warfarin 10 mg October 14 - INR 3.6, warfarin 10 mg October 13 - INR 2.3, warfarin 12.5 mg October 12 - INR 1.9, warfarin on hold October 11 - INR 2.9, warfarin 2.5 mg October 10 - INR 5.6, warfarin held October 09 - INR 2.8, warfarin 10 mg On day of discharge ferritin level 50 and transferrin saturation 16% therefore recommend continuing on your iron supplementation at this time but I do not think you need iron transfusions. She was also diagnosed with post operative ileus which has now resolved Notes For Next Care Provider INR management as above Medication Changes From Visit Warfarin changed as above No longer needing Lovenox bridging as INR therapeutic therefore this was discontinued Previous pain medication for stent insertion discontinued Admission HPI Per Admitting Provider 54 yr old F with PMHx of HLD, obesity s/p gastric bypass, aortic valve replacement on coumadin, migraine, fibromyalgia, insomnia, anxiety / depression. Pt was recently in the hospital on 10/07/24 for right ureteral stone s/p lithotripsy and right ureteral stent placement. Over the last 24 hours, she has developed increasing right flank pain that is radiating to the right groin. Pain is sharp / dull / achy / crampy that comes and goes but does not fully resolve. She also noticed hematuria and is passing quarter size clots. This morning around 2am, she had a fever of 100.4F. Discharge Exam Constitutional WD/WN, vitals as above Gastrointestinal (Abdomen) normal bowel sounds, soft, nontender, no hepatosplenomegaly Genitourinary no CVA tenderness Discharge Plan Discharge Items Patient Disposition: Home - Self-Care Reason For Visit: FEVER Discharge Diagnosis: Hematuria due to ureteral stent on warfarin Condition on Discharge: Good Activity: Resume your previous activity Non-emergency contact: Primary Care Provider and Urologist Call non-emergency contact if: you have any medication questions and your symptoms worsen Follow-up/Referrals: tSephan Escobedo DO [Physician] - (Please call the office on Friday to schedule a follow up appointment. Follow up hematuria, ureteral stone) Stephan Alva MD [Primary Care Provider] - (Please call the office on Friday to schedule a follow up appointment.) Diet: Heart Healthy Addtl Attending Provider Instructions: You were admitted to [facility] from October 09 to October 16, 2024 due to hematuria secondary to stent insertion. Initially suspected to have a urine tract infection in addition due to fever at home however he had no additional fever here and urine cultures were subsequently negative therefore antibiotics have been discontinued. The hematuria was treated with continuous bladder irrigation and eventual stent removal on October 15. Due to elevated INR on day of discharge recommend going down to 5 mg warfarin daily for the next 2 days (including today) and repeating INR on Friday with further recommendations coming from your certified substance abuse counselor. To help your certified substance abuse counselor make a recommendation below all your recent INRs with warfarin dosing for the last 5 days October 16 - INR 4.7, recommend 5 mg (to be taken when you go home) October 15 - INR 4.1, warfarin 10 mg October 14 - INR 3.6, warfarin 10 mg October 13 - INR 2.3, warfarin 12.5 mg October 12 - INR 1.9, warfarin on hold October 11 - INR 2.9, warfarin 2.5 mg October 10 - INR 5.6, warfarin held October 09 - INR 2.8, warfarin 10 mg On day of discharge ferritin level 50 and transferrin saturation 16% therefore recommend continuing on your iron supplementation at this time but I do not think you need iron transfusions. Pending Studies at Discharge: No Stand-Alone Forms: My [facility], Smoking Cessation Medications and DC Order Prescriptions: New warfarin 5 mg tablet 5 mg PO DAILY Qty: 30 0RF Continued cholecalciferol (vitamin D3) 25 mcg (1,000 unit) tablet 25 mcg PO DAILY diclofenac sodium 1 % gel 2 g topical QID PRN (Reason: Pain) fluoxetine [Prozac] 20 mg capsule 60 mg PO QAM dicyclomine 10 mg capsule 10 mg PO QID PRN (Reason: abdominal pain) Qty: 120 0RF potassium chloride [Klor-Con M20] 20 mEq tablet,ER particles/crystals 20 meq PO DAILY Qty: 90 3RF ondansetron 8 mg tablet,disintegrating 8 mg PO DAILY PRN (Reason: nausea and vomiting) Qty: 30 0RF baclofen 10 mg tablet 10 mg PO TID PRN (Reason: muscle spasm) Qty: 90 11RF fluticasone propionate [Flonase Allergy Relief] 50 mcg/actuation spray,suspension 1 spray intranasal BID Qty: 16 0RF rosuvastatin [Crestor] 5 mg tablet 5 mg PO HS Qty: 90 3RF biotin 5,000 mcg tablet,chewable 5,000 mcg PO DAILY ferrous sulfate [FeroSul] 325 mg (65 mg iron) tablet 325 mg PO QPM calcium crb,[id number] 1 tab PO BID loratadine [Claritin] 10 mg tablet 10 mg PO DAILY PRN (Reason: Allergic Symptoms) Medical Marijuana 1 tab PO HS PRN (Reason: Pain/sleep ) Rx Instructions: 5 MG lorazepam 1 mg tablet 1 mg PO BID Qty: 60 5RF Rx Instructions: Only taking at bed time at this time tamsulosin [Flomax] 0.4 mg capsule 0.4 mg PO QAM montelukast [Singulair] 10 mg tablet 10 mg PO HS sumatriptan succinate [Imitrex] 100 mg tablet 100 mg PO DAILY PRN (Reason: Migraine Headache) Rx Instructions: TAKE 1 TABLET BY MOUTH DAILY NEEDED FOR MIGRAINE HEADACHE topiramate [Topamax] 100 mg tablet 100 mg PO BID divalproex [Depakote ER] 250 mg tablet extended release 24 hr 250 mg PO BID phenazopyridine [Pyridium] 200 mg tablet 200 mg PO Q8H PRN (Reason: pain) Qty: 10 0RF tamsulosin 0.4 mg capsule 0.4 mg PO HS Qty: 30 0RF Botox 200 unit recon soln 155 unit IM UD Patient Comments: once every 12 weeks Rx Instructions: 155 UNITS IM IN THE FACE AND NECK MUSCLES EVERY 12 WEEKS PER MIGRAINE PROTOCOL triamcinolone acetonide 0.1 % cream 1 applic TOP BID PRN (Reason: Skin Irritation) Rx Instructions: Apply to left leg twice daily x 2 weeks. Then stop x 2 weeks. Repeat course as directed. amoxicillin 500 mg tablet See Rx Instructions .ROUTE .COMPLEX Rx Instructions: 2,000 mg orally 1 hour prior to dental appointment; albuterol sulfate 90 mcg/actuation Hfa Aerosol Inhaler 2 puff INHALATION DAILY PRN (Reason: Shortness Of Breath Or Wheezing) Discontinued warfarin 5 mg tablet 10 mg PO DAILY Qty: 180 2RF Protocol: Dose Management Condition: Friday Dose/Route: 10 mg Instruction: 2 x 5 mg tablets Condition: Friday Dose/Route: 0 mg Instruction: 0 tablets Condition: Friday Dose/Route: 0 mg Instruction: 0 tablets Condition: Friday Dose/Route: 0 mg Instruction: 0 tablets Condition: Dose/Route: 10 mg Instruction: 2 x 5 mg tablets Condition: Friday Dose/Route: 12.5 mg Instruction: 2.5 x 5 mg tablets Condition: Friday Dose/Route: 10 mg Instruction: 2 x 5 mg tablets Protocol Text: Adjustment Start Date: Friday10/04/24 INR Value: 3.8 INR Date: 10/04/24 Rx Instructions: S-T-TH-Sat hydrocodone-acetaminophen 5-325 mg tablet 1 tab PO Q8H PRN (Reason: pain) Qty: 10 0RF oxycodone 5 mg tablet 5 mg PO Q6H PRN (Reason: pain) Qty: 10 0RF enoxaparin [Lovenox] 100 mg/mL syringe 100 mg subcut Q12H Patient Comments: filled 10/05 5 day supply oxycodone-acetaminophen [Percocet] 7.5-325 mg tablet 1 tab PO Q8H PRN (Reason: pain) 3 Days Qty: 7 0RF warfarin 5 mg Tablet 12.5 mg PO QPM Protocol: Dose Management Condition: Friday Dose/Route: 10 mg Instruction: 2 x 5 mg tablets Condition: Friday Dose/Route: 0 mg Instruction: 0 tablets Condition: Friday Dose/Route: 0 mg Instruction: 0 tablets Condition: Friday Dose/Route: 0 mg Instruction: 0 tablets Condition: Dose/Route: 10 mg Instruction: 2 x 5 mg tablets Condition: Friday Dose/Route: 12.5 mg Instruction: 2.5 x 5 mg tablets Condition: Friday Dose/Route: 10 mg Instruction: 2 x 5 mg tablets Protocol Text: Adjustment Start Date: Friday10/04/24 INR Value: 3.8 INR Date: 10/04/24 Rx Instructions: M-W-F Discharge Orders: Discharge Order (Routine); Ordered 10/16/24 Ordered By: William Brasher Admission Data Admit Date/Time: 10/09/24 08:47 Attending Provider: William Brasher Admit Provider: Princess Montejo Primary Care Provider: Stephan Alva Other Providers: Stephan Escobedo Other Interventions: Discharge Summary Assessment (RN) Last Done: 10/16/24 11:25 Hospital Stay Data Consultations 10/09/24 07:36 Consult Urology Stat ED Decision to Admit Stat Procedures Performed Operation Date: 10/15/24 07:00 Actual Procedures p Cysto, bilateral retrogrades, Right stent removal, Fulgeration of bladder and bladder neck(Not Applicable) - Stephan Escobedo DO Diagnostic Imagining Performed 10/09/24 06:12 CT abd pelvis IV con only Stat 10/11/24 12:51 CT abd pelvis wo con Stat 10/15/24 FL retrograde includes kub Routine Pending Results Patient Have Any Pending Studies at Discharge: No Discharge Instructions Given to Patient (Per Discharging Provider) You were admitted to [facility] from October 09 to October 16, 2024 due to hematuria secondary to stent insertion. Initially suspected to have a urine tract infection in addition due to fever at home however he had no additional fever here and urine cultures were subsequently negative therefore antibiotics have been discontinued. The hematuria was treated with continuous bladder irrigation and eventual stent removal on October 15. Due to elevated INR on day of discharge recommend going down to 5 mg warfarin daily for the next 2 days (including today) and repeating INR on Friday with further recommendations coming from your certified substance abuse counselor. To help your certified substance abuse counselor make a recommendation below all your recent INRs with warfarin dosing for the last 5 days October 16 - INR 4.7, recommend 5 mg (to be taken when you go home) October 15 - INR 4.1, warfarin 10 mg October 14 - INR 3.6, warfarin 10 mg October 13 - INR 2.3, warfarin 12.5 mg October 12 - INR 1.9, warfarin on hold October 11 - INR 2.9, warfarin 2.5 mg October 10 - INR 5.6, warfarin held October 09 - INR 2.8, warfarin 10 mg On day of discharge ferritin level 50 and transferrin saturation 16% therefore recommend continuing on your iron supplementation at this time but I do not think you need iron transfusions. Total Time Total Time Spent Total Time Spent (In Minutes): 40 Coding Level of Care Code 32037 INP/OBS DISCH >30 MIN Diagnoses Nephrolithiasis N20.0 Acute flank pain R10.9 Complicated UTI (urinary tract infection) N39.0 Chronic anticoagulation Z79.01 Dyslipidemia E78.5 Acute blood loss anemia D62
--- NOTE | 2024-10-16 10:22 | Urology Progress Note ---
Date of Service October 16, 2024 Assessment & Plan (1) Gross hematuria: Plan: Afebrile 54F doing well after stent removal bladder evaluation fulguration urine now clearing per patient. Some urinary urgency as expected s/p manipulation and stent removal should clear up in few days. - ok to follow as outpatient for further management - to signoff - if burning with urine bothersome ok for pyridium - continue flomax pending outpatient reevaluation - please call with questions (2) Ureteral stent present: Admission and Anticipated Discharge Date Admission Date: October 09, 2024 Subjective doing well overnight denies n/v/fevers chills. Voiding without issue urine clearing up, walking around room some feeling better. Physical Exam Physical Exam: Gen: NAD Psych: Alert and Oriented Abd: Nontender nondistended : no flank tenderness Results & Data Vital Signs (Past 12 Hours) Vital Signs Temp Pulse Pulse Resp BP Pulse Ox O2 Del Method 10/16/24 08:00 69 19 93/45 L 99 Room Air 10/16/24 07:43 59 L 10/16/24 04:00 37 C 68 18 91/43 L 96 Room Air 10/16/24 00:00 59 L 10/15/24 23:56 37 C 68 18 95/51 L 97 Room Air Laboratory Results labs reviewed PG Care Time/CCT Total # of Minutes Spent Total Time Spent with Patient: Total time spent is greater than 50% in coordination of care (as documented) at patient's floor/unit and/or counseling patient: Coding Level of Care Code 27850 SUB INP/OBS CARE 03/06MIN Diagnoses Gross hematuria R31.0 Ureteral stent present Z96.0
[2024-10-16 11:27] VITALS: BP 110/58
[2024-10-16] MEDS ORDERED: WARFARIN SOD 5 MG TAB PO SCH (16:00)
--- NOTE | 2024-10-17 16:30 | Coding Query ---
Your help is needed for correct coding of this account; please clarify if the patients Post-operative Ileus was: Pt s/p ureteral stent prior admission ..... (X ) expected out of the surgery ( ) unexpected complication from the surgery ( )other please specify Thank you PAULINE Madrigal CCS
--- NOTE | 2024-10-17 16:31 | Coding Query ---
ANEMIA To promote full compliance with coding requirements relating to patient care, physician participation is requested in all cases of orthopedic coder uncertainty. Please assist us with the question(s) below: Coding Question(s): The record reflects the following clinical findings:Pt admitted with gross hematuria/ 3 UPC given d/t bleeding from ureteral stent. If these findings are indicative of anemia, please specify the known or suspected type by placing an "X" within the parenthesis (x). If other, please document type. Examples are: ( X) Acute blood loss anemia ( ) Acute Postoperative blood loss anemia ( ) Acute postoperative anemia due to dilutional fluids ( ) Chronic blood loss anemia ( ) Anemia of chronic disease ( ) Aplastic anemia ( ) Anemia due to renal disease ( ) Anemia in neoplastic disease ( ) Iron deficient anemia ( ) Anemia, unspecified or other ( ) Other: (please specify) Thank you PAULINE Madrigal CCS
== END 2024-10-16 13:43 | disposition home or self-care (01) | DRG 669 ==
LOC: ED 05:44 → SUATTDRO 08:47 → EDINP 08:47 → 2S 15:12 → 1E 10-14 09:53